=== PATIENT | female | born 2000 | race Caucasian/White ===

== ENCOUNTER 2022-06-17 21:47 | Emergency (ER) | payer MEDICAID, SELFPAY ==
[2022-06-17 21:48] VITALS: BP 123/81; PULSE 118; RESP 16; TEMP 36.8; O2SAT 100; BMI 31.1
[2022-06-17 23:30] VITALS: BP 113/74; PULSE 89; O2SAT 99
--- NOTE | 2022-06-18 00:08 | HMH.EDSKAF ---
Discharge Plan Disposition Patient Disposition: Home, Self-Care Condition: Good Prescriptions Prescriptions: New cephalexin 500 mg capsule 500 mg PO BID 10 Days Qty: 20 0RF cephalexin 500 mg capsule 500 mg PO BID 7 Days Qty: 14 0RF Referrals Follow up/Referrals: Rubens Diane APRN [Primary Care Provider] - See instructions Activity Restrictions/Add. Instructions Additional Instructions/Restrictions: Follow up with your primary care physician in 2-3 days for further management. Keep wound clean and dry. Please take antibiotic as prescribed. Please use tylenol and ibuprofen for pain control. Clinical Impressions Clinical Impression: Abscess and cellulitis of gluteal region Instructions Patient Instructions: DI for Skin Abscess Discharge ED Provider: Julianna Bowling Skin/Abscess/FB HPI General Chief complaint: Skin/Abscess/Foreign Body Stated complaint: 8 weeks , lower back pain Time Seen by Provider: 06/17/22 21:47 Mode of Arrival: Ambulatory Source of Information: Patient Limitations: No Limitations Description of Symptoms (Recalled from ER Triage Doc. by RN): pt reports like a boil on her tailbone for the past 2 days. She reports discomfort when sitting or laying on her back. She says she is 8 weeks . History of Present Illness HPI narrative: Miss Deras is a 22 yo female currently 8 weeks presenting to the ED for a quarter size boil on her (R) gluteal muscle. She reports symptom onset a few days ago. Patient reports severe pain, worse when she sits on her bottom. Patient denies any fevers, chills or other systemic infection like symptoms. She denies any recent trauma to the abdomen. No similar symptoms. No insect bite known. complaint: abscess/boil Onset (ago): day(s) Tetanus up to date: yes Location: buttocks Severity: moderate Quality: sharp Consistency: constant Relieving factors: other (Not sitting on it) Exacerbating factors: none Associated symptoms: denies other symptoms Treatments prior to arrival: none Related Data Previous Rx's Medication Instructions Recorded cephalexin 500 mg capsule 500 mg PO BID 10 days #20 caps 06/18/22 cephalexin 500 mg capsule 500 mg PO BID 7 days #14 caps 06/18/22 Allergies Allergy/AdvReac Type Severity Reaction Status Date / Time No Known Allergies Allergy Verified 06/18/22 00:09 [facility] Social History Smoking Status: Never smoker alcohol intake: former current occupational status: employed Travel in the last 8 weeks: None ROS Obtained: Yes All systems reviewed & no additional complaints except as documented Constitutional Constitutional: Reports system reviewed and no additional complaints, except as documented Eyes Eyes: Reports system reviewed and no additional complaints, except as documented ENT Ears, Nose, Mouth, and Throat: Reports system reviewed and no additional complaints, except as documented Cardiovascular Cardiovascular: Reports system reviewed and no additional complaints, except as documented Respiratory Respiratory: Reports system reviewed and no additional complaints, except as documented Gastrointestinal Gastrointestingal: Reports system reviewed and no additional complaints, except as documented and other Comments: Boil along the (R) gluteal region. No fluctuance noted, hard and indurated. No crepitus.Mild surrounding eyrthema. Musculoskeletal Musculoskeletal: Reports system reviewed and no additional complaints, except as documented Neurologic Neurologic: Reports system reviewed and no additional complaints, except as documented Allergic/Immunologic Allergic/Immunologic: Reports system reviewed and no additional complaints, except as documented Physical Exam General General appearance: alert and in no apparent distress Head Head exam: atraumatic and normal inspection Eye Eye exam: Present normal appearance and EOMI E
[2022-06-18 00:32] VITALS: BP 113/74; PULSE 93; RESP 16; TEMP 36.6; O2SAT 98
== END 2022-06-18 00:34 | disposition home or self-care (01) ==
PROVIDERS: Emergency Provider Student in an Organized Health Care Education/Training Program; PCP Nurse Practitioner Family
DX: L02.31 Cutaneous abscess of buttock (principal); Z33.1 Pregnant state, incidental
CPT/HCPCS: 10060; 99282

== ENCOUNTER → 2022-07-21 08:26 | Outpatient (CLI) | payer MEDICAID, SELFPAY | PROVIDERS: Visit Provider Obstetrics & Gynecology | DX: Z34.90 Encounter for supervision of normal pregnancy, unspecified, unspecified trimester (principal) | CPT/HCPCS: 87086 ==

== ENCOUNTER 2022-07-25 20:50 | Emergency (ER) | payer MEDICAID, SELFPAY ==
[2022-07-25 21:04] VITALS: BP 131/88; PULSE 116; RESP 16; TEMP 36.8; O2SAT 97; BMI 30.9
--- NOTE | 2022-07-25 21:45 | PC.NURSE ---
Dr. Heaton paged
--- NOTE | 2022-07-25 21:47 | HMH.EDSKAF ---
Discharge Plan Disposition Patient Disposition: Home, Self-Care Prescriptions Prescriptions: New clindamycin HCl 300 mg capsule 300 mg PO TID Qty: 30 0RF No Action Flintstones Complete Tablet,Chewable 1 tab PO BID cephalexin 500 mg capsule 500 mg PO QID Referrals Follow up/Referrals: Rubens Diane APRN [Primary Care Provider] - See instructions Clinical Impressions Clinical Impression: Abscess and cellulitis of gluteal region, Instructions Patient Instructions: DI for Skin Abscess Discharge ED Provider: Kendell Shearer Skin/Abscess/FB HPI General Chief complaint: Skin/Abscess/Foreign Body Stated complaint: 10WKs Preg Abscess on tail Time Seen by Provider: 07/25/22 21:47 Mode of Arrival: Ambulatory Source of Information: Patient, Significant Other and Medical Record Limitations: No Limitations Description of Symptoms (Recalled from ER Triage Doc. by RN): Pt c/o pain on left glut from a known pilonidal cyst she had evaluated today by her PCP. She was given PO keflex and instructed to see saturday. Pt says she came in because she just cant deal with the pain anymore. History of Present Illness HPI narrative: has infection to lt gluteal area in 10 weeks complaint: abscess/boil Onset (ago): day(s) Tetanus up to date: unsure Location: buttocks Severity: moderate Associated symptoms: denies other symptoms Treatments prior to arrival: antibiotic Related Data Home Medications Medication Instructions Recorded Confirmed pediatric multivitamin no.76 1 tab PO BID Supplement 07/20/22 07/25/22 (Flintstones Complete chewable tablet) cephalexin 500 mg capsule 500 mg PO QID Cyst 07/25/22 07/25/22 Previous Rx's Medication Instructions Recorded clindamycin HCl 300 mg capsule 300 mg PO TID #30 caps 07/25/22 Allergies Allergy/AdvReac Type Severity Reaction Status Date / Time No Known Allergies Allergy Verified 07/25/22 13:43 PFSH PFSH Family History Other Cancer Diabetes Heart attack Thyroid disorder Social History Smoking Status: Never smoker alcohol intake: former current occupational status: employed Travel in the last 8 weeks: None ROS Obtained: Yes All systems reviewed & no additional complaints except as documented Integumentary/Breasts Skin/Breast: Reports as per HPI and Reports furuncle Physical Exam General General appearance: alert Head Head exam: normocephalic Eye Eye exam: Present PERRL and EOMI ENT ENT exam: Present mucous membranes moist Neck Neck exam: Absent trachea midline Respiratory Respiratory exam: Present normal lung sounds bilaterally Cardiovascular Cardiovascular exam: Present regular rate Extremities Exam Extremities exam: Present full ROM Neurological Exam Neurological exam: Present alert, oriented X3 and CN II-XII intact Psychiatric Psychiatric exam: Present normal affect Skin Skin exam: Present other (1x2 lt gluteal abscess) Medical Decision Making Medical Records Medical records reviewed: Yes I reviewed the patient's medical records. Aneudy Inquiry Pt receiving controlled substance: No Vital Signs: 07/25/22 21:04 Temperature 98.2 F Temperature Source Oral Pulse Rate [Right Radial] 116 H Respiratory Rate 16 Blood Pressure [Right Arm] 131/88 Blood Pressure Mean [Right Arm] 102 02 Sat by Pulse Oximetry 97 Oxygen Delivery Method Room Air Orders (Tests/Meds): ED MEDICATIONS Discontinued Medications Generic Name Dose Route Start Last Admin Trade Name Freq PRN Reason Stop Dose Admin Acetaminophen/Codeine Phosphate 1 packet 07/25/22 21:52 07/25/22 22:03 Acetaminophen 300mg W/Codeine 30mg Take Home Pack (6) PO 07/25/22 21:53 1 packet ONCE ONE Administration Clindamycin HCl 300 mg 07/25/22 21:55 07/25/22 22:03 Clindamycin 150m
--- NOTE | 2022-07-25 21:49 | PC.NURSE ---
Dr. Shearer speaking with Dr. Heaton
--- NOTE | 2022-07-25 22:32 | PC.NURSE ---
@ 2154 Dr. Shearer s/w pt regarding options after he s/w Dr. Heaton. Pt elected to have I&D in ER and d/c on ABX. @2156 Procedure consent reviewed with pt with this RN and Dr. Shearer. @2157 Pt signed consent and was prepped in a prone position. @2199 Dr. Shearer back to bedside for procedure with this RN and Jose Olmedo EMT assisting. @2211 MD completed procedure. Pt tolerated procedure well. Jose Olmedo holding pressure to site per MD. @2215 site continued to trickle blood, will hold pressure longer. @2219 site no longer bleeding. Per MD, attempting to pack site with gauze strip in a wet to dry dressing. Unable to pack well, therefore applied telfa with tegaderm. Gave pt & SO dressing change instructions and dressing material.
[2022-07-25 23:04] VITALS: BP 116/72; PULSE 85; RESP 18; TEMP 37; O2SAT 98
== END 2022-07-25 23:07 | disposition home or self-care (01) ==
PROVIDERS: Emergency Provider Emergency Medicine; PCP Nurse Practitioner Family
DX: O34.81 Maternal care for other abnormalities of pelvic organs, first trimester (principal); O99.711 Diseases of the skin and subcutaneous tissue complicating pregnancy, first trimester; L05.01 Pilonidal cyst with abscess; O99.830 Other infection carrier state complicating pregnancy; L03.317 Cellulitis of buttock; Z3A.10 10 weeks gestation of pregnancy; Z79.899 Other long term (current) drug therapy; Z87.891 Personal history of nicotine dependence; Z82.49 Family history of ischemic heart disease and other diseases of the circulatory system; Z83.3 Family history of diabetes mellitus; Z80.9 Family history of malignant neoplasm, unspecified; Z83.49 Family history of other endocrine, nutritional and metabolic diseases
CPT/HCPCS: 10080; 87070; 87077; 87186; 87205; 99283

== ENCOUNTER → 2022-08-24 11:50 | Outpatient (CLI) | payer MEDICAID, SELFPAY ==
[2022-08-24 13:08] LABS: Basophils # 0.1 K/mm3 (0-0.2); Basophils % 0.6 % (0.1-2.0); Eosinophils # 0.2 K/mm3 (0.0-0.4); Eosinophils % 2.5 % (0.1-12.0); Hematocrit 37.8 % (37.0-47.0); Hemoglobin 12.2 g/dL (12.2-16.2); Lymphocytes # 1.3 K/mm3 (0.7-4.5); Lymphocytes % 14.6 % (10-50); Mean Corpuscular HGB Conc 32.3 g/dL (31.8-35.4); Mean Corpuscular Volume 89.6 fl (81-99); Mean Platelet Volume 8.5 fl (7.4-10.4); Monocytes # 0.3 K/mm3 (0.1-1.0); Monocytes % 3.5 % (1.7-9.3); Neutrophils # 6.8 K/mm3 (1.8-7.8); Neutrophils % 78.7 % (37.0-80.0); Platelet Count 274 K/mm3 (142-424); Red Blood Count 4.22 M/mm3 (4.20-5.40); White Blood Count 8.6 K/mm3 (4.8-10.8)
[2022-08-25 08:32] LABS: Rubella Antibodies, IgG <0.90 index (Immune >0.99)
[2022-08-25 09:19] LABS: Rapid Plasma Reagin Ab Titer Non Reactive (NonRea<1:1)
[2022-09-15 23:37] LABS: HIV Screen 4th Generation wRfx Non Reactive; Hepatitis B Surface Antigen Negative
[2022-09-15 23:38] LABS: Hepatitis C Antibody <0.1
== END ==
PROVIDERS: PCP Nurse Practitioner Family; Visit Provider Obstetrics & Gynecology
DX: Z34.90 Encounter for supervision of normal pregnancy, unspecified, unspecified trimester (principal)
CPT/HCPCS: 36415; 85025; 86592; 86703; 86762; 86850; 87340; 87380; G0432

== ENCOUNTER → 2022-10-19 12:36 | Outpatient (CLI) | payer MEDICAID, SELFPAY ==
--- NOTE | 2022-10-19 12:36 | US_ITS ---
FINAL REPORT CLINICAL HISTORY: OB complete, anatomy scan FINDINGS: There is a single live intrauterine gestation. Presentation is breech. The cervix is closed and measures 3.66 cm. Placenta is anterior. Cardiac activity is confirmed at 146 bpm. Three-vessel cord with satisfactory umbilical cord insertion. Four-chamber heart is noted. AMNIOTIC FLUID: Appropriate amount. MEASUREMENTS: ULTRASOUND AGE: 23 weeks six days. GESTATION AGE: 22 weeks five days. ESTIMATED WEIGHT: 625 g GROWTH PERCENTILE: 89% BPD: 6.0 cm consistent with 24 weeks four days. OFD: 7.5 cm consistent with 23 weeks six days. HC: 21.3 cm consistent with 23 weeks three days. AC: 19.6 cm consistent with 24 weeks two days. FL: 4.0 cm consistent with 23 weeks one days. CEREBELLUM: 2.3 cm consistent with 23 weeks 0 days. HUMERUS: 3.9 cm consistent with 23 weeks six days. HC/AC: 1.09 CI: 80% FL/BPD: 67% FL/AC: 21% IMPRESSION: Single living IUP with an ultrasound age of 23 weeks six days. Reviewed, Interpreted and Dictated by Kevin Mccarty MD Transcribed by Keke Lindsey Authenticated and [facility]
== END ==
PROVIDERS: PCP Nurse Practitioner Family; Visit Provider Obstetrics & Gynecology
DX: Z34.90 Encounter for supervision of normal pregnancy, unspecified, unspecified trimester (principal); Z3A.17 17 weeks gestation of pregnancy
CPT/HCPCS: 76811

== ENCOUNTER → 2022-11-20 07:50 | Outpatient (CLI) | payer MEDICAID, SELFPAY ==
[2022-11-20 08:18] LABS: Basophils % 0.4 % (0.1-2.0); Eosinophils # 0.3 K/mm3 (0.0-0.4); Eosinophils % 3.6 % (0.1-12.0); Hematocrit 34.4 % (37.0-47.0); Hemoglobin 11.4 g/dL (12.2-16.2); Lymphocytes # 1.1 K/mm3 (0.7-4.5); Lymphocytes % 13.7 % (10-50); Mean Corpuscular HGB Conc 33.1 g/dL (31.8-35.4); Mean Corpuscular Hemoglobin 28.2 pg (27.0-31.2); Mean Corpuscular Volume 85.1 fl (81-99); Mean Platelet Volume 8.3 fl (7.4-10.4); Monocytes # 0.6 K/mm3 (0.1-1.0); Monocytes % 6.8 % (1.7-9.3); Neutrophils # 6.3 K/mm3 (1.8-7.8); Neutrophils % 75.5 % (37.0-80.0); Platelet Count 249 K/mm3 (142-424); Red Blood Count 4.05 M/mm3 (4.20-5.40); Red Cell Distribution Width 13.9 % (11.5-17.5); White Blood Count 8.3 K/mm3 (4.8-10.8)
[2022-11-20 08:24] LABS: Glucose,Fasting 105 mg/dl (74-100)
[2022-11-20 10:18] LABS: Glucose 1 Hour 146 mg/dL (74-100)
== END ==
PROVIDERS: PCP Nurse Practitioner Family; Visit Provider Obstetrics & Gynecology
DX: Z34.90 Encounter for supervision of normal pregnancy, unspecified, unspecified trimester (principal)
CPT/HCPCS: 36415; 82951; 85025

== ENCOUNTER → 2022-11-23 07:35 | Outpatient (CLI) | payer MEDICAID, SELFPAY ==
[2022-11-23 08:31] LABS: Glucose,Fasting 100 mg/dl (74-100)
[2022-11-23 10:46] LABS: Glucose 2 Hour 138 mg/dL (74-100)
[2022-11-23 11:03] LABS: Glucose 1 Hour 149 mg/dL (74-100)
[2022-11-23 12:26] LABS: Glucose 3 Hour 131 mg/dL (74-100)
== END ==
PROVIDERS: PCP Nurse Practitioner Family; Visit Provider Obstetrics & Gynecology
DX: O99.810 Abnormal glucose complicating pregnancy (principal)
CPT/HCPCS: 36415; 82951

== ENCOUNTER 2022-12-30 21:30 | Outpatient (CLI) | payer MEDICAID, SELFPAY ==
[2022-12-30 21:35] VITALS: BMI 33.6
[2022-12-30 21:44] LABS: Microscopic, Urine URINE MICROSCOPIC (MICROSCOPIC)
[2022-12-30 21:51] LABS: Appearance,Urine SL CLOUDY (Clear); Bilirubin,Urine Negative (Negative); Blood, Urine Negative (Negative); Color,Urine YELLOW (Yellow); Glucose,Urine (UA) Negative (Negative); Ketones,Urine TRACE (Negative); Leukocyte Esterase,Urine Negative (Negative); Nitrate,Urine Negative (Negative); PH,Urine 6.5 (5.0-8.5); Protein,Urine Negative (Negative); Specific Gravity, Urine 1.015 (1.005-1.030); Urobilinogen,Urine 0.2 EU/dl (0.2)
[2022-12-30 22:04] LABS: Barbiturates Screen,Urine Negative ng/ml (<200); Benzodiazepines Screen,Urine Negative ng/ml (<200)
[2022-12-30 22:05] LABS: Amphetamine/Metha Screen,Urine Negative ng/ml (<1000)
[2022-12-30 22:06] LABS: Cannabinoid Screen,Urine Negative ng/ml (<50); Cocaine Screen,Urine Negative ng/ml (<300)
[2022-12-30 22:07] LABS: Methadone Screen,Urine Negative ng/ml (<300)
[2022-12-30 22:08] LABS: Opiate Screen,Urine Negative ng/ml (<300); Phencyclidine Screen,Urine Negative ng/ml (<25)
[2022-12-30 22:11] LABS: Bacteria,Urine Trace /lpf
== END 2022-12-30 23:53 | disposition home or self-care (01) ==
LOC: OBOUT 21:33 → OB 21:33
PROVIDERS: PCP Nurse Practitioner Family; Visit Provider Obstetrics & Gynecology
DX: O47.00 False labor before 37 completed weeks of gestation, unspecified trimester (principal); Z3A.33 33 weeks gestation of pregnancy; O36.8120 Decreased fetal movements, second trimester, not applicable or unspecified
CPT/HCPCS: 59025; 80305; 81001; 96360

== ENCOUNTER 2023-01-08 22:07 | Outpatient (CLI) | payer MEDICAID, SELFPAY ==
[2023-01-08 22:18] VITALS: BP 127/69; PULSE 75; RESP 18; TEMP 36.9; O2SAT 97; BMI 34.3
[2023-01-08 22:29] LABS: Microscopic, Urine URINE MICROSCOPIC (MICROSCOPIC)
[2023-01-08 22:30] LABS: Appearance,Urine CLEAR (Clear); Bilirubin,Urine Negative (Negative); Blood, Urine Negative (Negative); Color,Urine YELLOW (Yellow); Glucose,Urine (UA) Negative (Negative); Ketones,Urine Negative (Negative); Leukocyte Esterase,Urine 1+ (Negative); Nitrate,Urine Negative (Negative); PH,Urine 7.5 (5.0-8.5); Protein,Urine Negative (Negative); Urobilinogen,Urine 0.2 EU/dl (0.2)
[2023-01-08 22:34] VITALS: BP 127/69; PULSE 75; RESP 18; TEMP 36.9; O2SAT 97; BMI 34.3
[2023-01-08 22:43] LABS: Bacteria,Urine Trace /lpf
[2023-01-08 22:51] LABS: Opiate Screen,Urine Negative ng/ml (<300)
[2023-01-08 22:52] LABS: Phencyclidine Screen,Urine Negative ng/ml (<25)
[2023-01-08 23:46] LABS: Amphetamine/Metha Screen,Urine Negative ng/ml (<1000); Barbiturates Screen,Urine Negative ng/ml (<200); Benzodiazepines Screen,Urine Negative ng/ml (<200); Cannabinoid Screen,Urine Negative ng/ml (<50); Cocaine Screen,Urine Negative ng/ml (<300); Methadone Screen,Urine Negative ng/ml (<300)
[2023-01-09 01:25] VITALS: BP 118/68; PULSE 84; RESP 18; TEMP 37.1
== END 2023-01-09 01:25 | disposition home or self-care (01) ==
LOC: OBOUT 22:10 → OB 22:10
PROVIDERS: PCP Nurse Practitioner Family; Visit Provider Obstetrics & Gynecology
DX: O26.893 Other specified pregnancy related conditions, third trimester (principal); Z3A.34 34 weeks gestation of pregnancy; M54.50 Low back pain, unspecified; R10.9 Unspecified abdominal pain
CPT/HCPCS: 59025; 80305; 81001; 87086; 96365; 96366; 96372; G0463

== ENCOUNTER 2023-01-09 14:44 | Outpatient (CLI) | payer MEDICAID, SELFPAY ==
[2023-01-09 15:01] VITALS: RESP 18; BMI 34.3
--- NOTE | 2023-01-09 15:38 | US_ITS ---
FINAL REPORT CLINICAL HISTORY: CONTRACTIONS cervix length FINDINGS: Transvaginal sonographic images of the cervix were obtained. Limited sonographic images were obtained of the cervix. The cervix measures 4.2 cm in length which is normal. There is no funneling of the internal os. There may be a tiny amount of fluid in the cervix which is nonspecific. The fetus is vertex. IMPRESSION: Normal cervical length with no funneling. Reviewed, Interpreted and Dictated by Nena Jimenez MD Transcribed by Brandy Jaeger Authenticated and . [facility]
[2023-01-09 16:45] LABS: Fetal Fibronectin (Rapid) Negative (Negative)
== END 2023-01-09 17:00 | disposition home or self-care (01) ==
LOC: OBOUT 14:46 → OB 14:47
PROVIDERS: PCP Nurse Practitioner Family; Visit Provider Obstetrics & Gynecology
DX: O26.893 Other specified pregnancy related conditions, third trimester (principal); Z3A.34 34 weeks gestation of pregnancy
CPT/HCPCS: 59025; 76817; 82731; G0463

== ENCOUNTER → 2023-01-11 14:45 | Outpatient (CLI) | payer MEDICAID, SELFPAY ==
--- NOTE | 2023-01-11 14:45 | US_ITS ---
FINAL REPORT CLINICAL HISTORY: lga growth and s/d ratios done as well FINDINGS: There is a single live intrauterine gestation. Presentation is cephalic. The cervix is closed and measures 4.1 cm. Placenta is anterior. movement is noted. SD ratios 2.55. Amniotic fluid index is 15.4 which is normal. Heart rate is identified at 128 beats per minute. MEASUREMENTS: ULTRASOUND AGE: 35 weeks 3 days GESTATION AGE: 34 weeks 5 days ESTIMATED WEIGHT: 2704 g GROWTH PERCENTILE: 70% BPD: 8.86 cm corresponding to 35 weeks 6 days. OFD: 11 cm corresponding to 35 weeks 4 days. HC: 31.38 cm corresponding to 35 weeks 2 days. AC: 32.28 cm corresponding to 36 weeks 2 days. FL: 6.65 cm corresponding to 34 weeks 2 days. HC/AC: 0.97 CI: 81% FL/BPD: 75% FL/AC: 21% Biophysical profile score: Breathin Movement: 2 Tone: 2 Fluid volume: 2 IMPRESSION: Single living IUP with an ultrasound age of 35 weeks 3 days Biophysical profile score 8 of 8. Reviewed, Interpreted and Dictated by Nena Jimenez MD Transcribed by Sabina Dave Authenticated and . [facility]
== END ==
PROVIDERS: PCP Nurse Practitioner Family; Visit Provider Obstetrics & Gynecology
DX: O36.60X0 Maternal care for excessive fetal growth, unspecified trimester, not applicable or unspecified (principal)
CPT/HCPCS: 76816; 76819; 76820

== ENCOUNTER → 2023-01-17 11:00 | Outpatient (CLI) | payer MEDICAID, SELFPAY | PROVIDERS: Visit Provider Obstetrics & Gynecology | DX: Z34.90 Encounter for supervision of normal pregnancy, unspecified, unspecified trimester (principal); Z3A.34 34 weeks gestation of pregnancy | CPT/HCPCS: 86403 ==

== ENCOUNTER 2023-01-18 00:19 | Outpatient (CLI) | payer MEDICAID, SELFPAY ==
[2023-01-18 00:47] VITALS: BMI 35.0
[2023-01-18 00:48] VITALS: BP 131/83; PULSE 102; RESP 19; TEMP 36.7; O2SAT 97; BMI 35.0
[2023-01-18 00:55] LABS: Microscopic, Urine URINE MICROSCOPIC (MICROSCOPIC)
[2023-01-18 01:02] LABS: Appearance,Urine CLEAR (Clear); Bilirubin,Urine Negative (Negative); Blood, Urine Negative (Negative); Color,Urine YELLOW (Yellow); Glucose,Urine (UA) Negative (Negative); Ketones,Urine Negative (Negative); Leukocyte Esterase,Urine Negative (Negative); Nitrate,Urine Negative (Negative); Protein,Urine Negative (Negative); Specific Gravity, Urine <= 1.005 (1.005-1.030); Urobilinogen,Urine 0.2 EU/dl (0.2)
[2023-01-18 01:05] LABS: Fetal Membrane Rupture (Rapid) Negative (Negative)
[2023-01-18 01:35] LABS: WBC,Urine Occasional #/hpf (0-3)
== END 2023-01-18 03:53 | disposition home or self-care (01) ==
LOC: OBOUT 00:20 → OB 00:21
PROVIDERS: PCP Nurse Practitioner Family; Visit Provider Obstetrics & Gynecology
DX: O47.03 False labor before 37 completed weeks of gestation, third trimester (principal); Z3A.35 35 weeks gestation of pregnancy; R10.2 Pelvic and perineal pain
CPT/HCPCS: 59025; 81001; 84112; 96365; G0463

== ENCOUNTER 2023-01-19 22:14 | Outpatient (CLI) | payer MEDICAID, SELFPAY ==
[2023-01-19 22:25] VITALS: BMI 35.0
[2023-01-19 22:38] VITALS: BMI 77.3
[2023-01-19 22:46] LABS: Microscopic, Urine URINE MICROSCOPIC (MICROSCOPIC)
[2023-01-19 22:56] LABS: Appearance,Urine CLEAR (Clear); Bilirubin,Urine Negative (Negative); Blood, Urine Negative (Negative); Color,Urine YELLOW (Yellow); Glucose,Urine (UA) Negative (Negative); Ketones,Urine Negative (Negative); Leukocyte Esterase,Urine Negative (Negative); Nitrate,Urine Negative (Negative); Protein,Urine Negative (Negative); Urobilinogen,Urine 0.2 EU/dl (0.2)
[2023-01-19 23:08] LABS: Barbiturates Screen,Urine Negative ng/ml (<200)
[2023-01-19 23:09] LABS: Amphetamine/Metha Screen,Urine Negative ng/ml (<1000); Benzodiazepines Screen,Urine Negative ng/ml (<200)
[2023-01-19 23:10] LABS: Cannabinoid Screen,Urine Negative ng/ml (<50)
[2023-01-19 23:11] LABS: Cocaine Screen,Urine Negative ng/ml (<300); Methadone Screen,Urine Negative ng/ml (<300)
[2023-01-19 23:12] LABS: Opiate Screen,Urine Negative ng/ml (<300)
[2023-01-19 23:13] LABS: Phencyclidine Screen,Urine Negative ng/ml (<25)
[2023-01-19 23:21] LABS: Squamous Epithelial Cell,Urine Occasional #/hpf (0-5); WBC,Urine Occasional #/hpf (0-3)
== END 2023-01-19 23:35 | disposition home or self-care (01) ==
LOC: OBOUT 22:16 → OB 22:17
PROVIDERS: PCP Nurse Practitioner Family; Visit Provider Obstetrics & Gynecology
DX: O47.03 False labor before 37 completed weeks of gestation, third trimester (principal); Z3A.36 36 weeks gestation of pregnancy
CPT/HCPCS: 59025; 80305; 81001

== ENCOUNTER 2023-01-23 15:05 | Inpatient (IN) | payer MEDICAID, SELFPAY ==
[2023-01-23 14:06] VITALS: BP 149/91; PULSE 91; RESP 18; TEMP 37.3; O2SAT 98; BMI 35.7
[2023-01-23 14:20] VITALS: BP 146/96
[2023-01-23 15:31] LABS: Basophils % 0.4 % (0.1-2.0); Eosinophils % 0.5 % (0.1-12.0); Hematocrit 33.6 % (37.0-47.0); Hemoglobin 10.9 g/dL (12.2-16.2); Lymphocytes # 1.3 K/mm3 (0.7-4.5); Lymphocytes % 14.6 % (10-50); Mean Corpuscular HGB Conc 32.5 g/dL (31.8-35.4); Mean Platelet Volume 9.5 fl (7.4-10.4); Monocytes # 0.5 K/mm3 (0.1-1.0); Monocytes % 5.7 % (1.7-9.3); Neutrophils # 6.9 K/mm3 (1.8-7.8); Neutrophils % 78.8 % (37.0-80.0); Platelet Count 243 K/mm3 (142-424); Red Cell Distribution Width 14.3 % (11.5-17.5); White Blood Count 8.8 K/mm3 (4.8-10.8)
[2023-01-23 15:36] LABS: Fibrinogen 450 mg/dL (229.9-363.5); Prothrombin Time 9.8 seconds (10.1-12.5)
--- NOTE | 2023-01-23 15:39 | EXP.HP ---
History of Present Illness *Admission Date: 01/23/23 *Reason for visit:: Hypertension *History of present illness: 22 yo admitted at 36 3/ directly from office for elevated blood pressure BP in office 150/98 with 3+ pedal edema Trace protein in urine She reported new onset headaches and visual disturbances BP in OB triage 140-150/80-90 Reflexes 2+ She also reported decreased movement but NST has been reactive She was advised that delivery was indicated in the context of elevated blood pressures with PIH symptoms, in spite of prematurity, and she and baby's father are in agreement with this plan She has been counseled that the could require transfer to a tertiary facility due to prematurity, but that immediate delivery was appropriate in the context of maternal diagnosis of preeclampsia after 36 weeks care at [facility]-- Dr. Landrum complicated by contractions, history of HSV and Rubella non-immune maternal status She is currently taking Valtex for prophylaxis She had abnormal 1hr GTT but normal 3hr GTT PFSH PFSH Disclaimer: The information contained in this section may have been updated after the patient was seen, as this information can be updated by other users. Medical History Elevated blood pressure affecting in third trimester, antepartum Pilonidal abscess Rubella non-immune status, antepartum Family History Other Cancer Diabetes Heart attack Thyroid disorder Social History Smoking Status: Never smoker alcohol intake: former current occupational status: unemployed Travel in the last 8 weeks: None Review of Systems Review of Systems Review of systems:: pertinent systems reviewed and negative unless documented below Constitutional Constitutional: Denies chills, Denies fever(s) and Reports headache(s) Eyes Eyes: Reports spots in vision ENT Ears, Nose, Mouth, and Throat: Reports headache(s) *Cardiovascular Cardiovascular: Reports pedal edema *Gastrointestinal Gastrointestinal: Reports nausea and Denies vomiting *Genitourinary Genitourinary: Denies abnormal vaginal bleeding *Neurologic Neurologic: Reports headache(s) and Reports other visual disturbances Meds Home Medications and Allergies Home Medications Medication Instructions Recorded Confirmed Type pediatric multivitamin no.76 1 tab PO BID Supplement 07/20/22 01/23/23 History (Flintstones Complete chewable tablet) valacyclovir 500 mg tablet 500 mg PO BID #60 tabs 01/17/23 01/23/23 Rx (Valtrex) New Prescriptions to Start Prescriptions: Allergies Allergy/AdvReac Type Severity Reaction Status Date / Time No Known Allergies Allergy Verified 01/23/23 13:13 Exam Data for Last 24 hours Vital signs and Labs for Last 24 Hours: Temp Pulse Resp BP Pulse Ox 99.1 F 91 H 18 146/96 H 98 01/23/23 14:06 01/23/23 14:06 01/23/23 14:06 01/23/23 14:20 01/23/23 14:06 Laboratory Results - last 24 hr 01/23/23 14:35: WBC 8.8, RBC 4.20, Hgb 10.9 L, Hct 33.6 L, MCV 80.0 L, MCH 26.0 L, MCHC 32.5, RDW 14.3, Plt Count 243, MPV 9.5, Neut % (Auto) 78.8, Lymph % (Auto) 14.6, [place] % (Auto) 5.7, Eos % (Auto) 0.5, Baso % (Auto) 0.4, Neut # (Auto) 6.9, Lymph # (Auto) 1.3, [place] # (Auto) 0.5, Eos # (Auto) 0.0, Baso # (Auto) 0.0 01/23/23 14:35: PT 9.8 L, INR 0.90, APTT 23.0, Fibrinogen 450 H I & O for Last 24 hours: Intake & Output 01/21/23 01/22/23 01/23/23 01/24/23 11:59 11:59 11:59 11:59 Weight 202 lb Constitutional Constitutional: no acute distress *Routine HEENT Exam Head: Present normocephalic Eye: Absent conjunctival icterus or scleral injection ENT: Present mucous membranes moist *Routine Neck Exam Neck: Present supple *Routine Respiratory Exam Respiratory: Present CTA bilaterally; Absent resp
[2023-01-23 16:10] LABS: Coronavirus 19, PCR Not Detected (NotDetected); Influenza A, PCR Not Detected (NotDetected); Influenza B, PCR Not Detected (NotDetected)
[2023-01-23 16:38] LABS: Blood Urea Nitrogen 7 mg/dl (7-17); Calcium 9.4 mg/dl (8.4-10.2); Carbon Dioxide 20 mmol/L (22.0-30.0); Chloride 107 mmol/L (98-107); Creatinine Clearance Estimated 316 mL/min (50-200); Estimated Glomerular Filt Rate 198 ml/min (>60); GFR (African American) 239 ML/MIN (>60); Glucose 76 mg/dl (74-100); Sodium 131 mmol/L (136-145)
[2023-01-23 16:49] LABS: D-Dimer 1.01 ug/mL (0.0-0.5)
[2023-01-23 16:54] LABS: Alanine Aminotransferase 18 U/L (12-78); Aspartate Amino Transferase 36 U/L (14-36); Uric Acid 4.8 mg/dl (2.5-6.2)
[2023-01-23 20:00] VITALS: BP 136/91; PULSE 78; RESP 17; TEMP 36.8; O2SAT 100
[2023-01-24] VITALS (10 sets, daily range): BP systolic 126–149; BP diastolic 78–100; PULSE 76–95; RESP 12–18; TEMP 36.6–43; O2SAT 96–100
--- NOTE | 2023-01-24 08:15 | HMH.PHAINT1 ---
Pharmacy Intervention Comments: MEDICATION RECONCILIATION COMPLETED ON PATIENT USING EXTERNAL FILL HISTORY FROM PHARMACY. -ELBERT JEFF, LISAD
--- NOTE | 2023-01-24 09:58 | P.PN_ITS ---
[facility] Disclaimer: The information contained in this section may have been updated after the patient was seen, as this information can be updated by other users. Medical History Elevated blood pressure affecting in third trimester, antepartum Pilonidal abscess Rubella non-immune status, antepartum Family History Other Cancer Diabetes Heart attack Thyroid disorder Social History (Updated 01/23/23 @ 20:19 by Marlyn Banegas RN) Smoking Status: Never smoker alcohol intake: former substance use type: denies use current occupational status: unemployed Travel in the last 8 weeks: None [facility] Anesthesia Checklist Patient Identification Patient Identification: Arm Band Structural Data Admitted From: Inpatient Planned Operative Procedure/s: Labor Epidural Consent for Planned Operative Procedure(s) Verified: Yes Verified Documents: Surgical Consent and History and Physical NPO Status Verified Time NPO: 00:00 Additional verifications Anesthesia Reactions: No Airway Assessment C-Spine Mobility Assessed: Yes TMJ Mobility Assessed: Yes Dentition: Good Dentition Neurological Assessment Level of Consciousness: Awake and Alert Anesthesia Plan Anesthesia Risk discussed: Yes Anesthesia Plan: Verified ASA Class: II Anesthesia Type: Epidural
--- NOTE | 2023-01-24 12:54 | CARE MANAGER ---
Patient states on PC4 questions that she gets less than 150 minutes of exercise. Patient has recently delivered and will be increasing her activity when she gets home. Resource list for exercise options will be given is discharge paperwork.
[2023-01-24 14:47] LABS: Microscopic, Urine URINE MICROSCOPIC (MICROSCOPIC)
[2023-01-24 14:59] LABS: Appearance,Urine CLEAR (Clear); Bilirubin,Urine Negative (Negative); Blood, Urine TRACE-L (Negative); Color,Urine YELLOW (Yellow); Glucose,Urine (UA) Negative (Negative); Ketones,Urine Negative (Negative); Leukocyte Esterase,Urine Negative (Negative); Nitrate,Urine Negative (Negative); PH,Urine 6.5 (5.0-8.5); Protein,Urine Negative (Negative); Urobilinogen,Urine 0.2 EU/dl (0.2)
[2023-01-24 15:03] LABS: Bacteria,Urine Trace /lpf
[2023-01-24 15:06] LABS: Amphetamine/Metha Screen,Urine Negative ng/ml (<1000)
[2023-01-24 15:07] LABS: Barbiturates Screen,Urine Negative ng/ml (<200); Benzodiazepines Screen,Urine Negative ng/ml (<200)
[2023-01-24 15:08] LABS: Cannabinoid Screen,Urine Negative ng/ml (<50)
[2023-01-24 15:09] LABS: Cocaine Screen,Urine Negative ng/ml (<300); Methadone Screen,Urine Negative ng/ml (<300)
[2023-01-24 15:10] LABS: Phencyclidine Screen,Urine Negative ng/ml (<25)
[2023-01-24 15:11] LABS: Opiate Screen,Urine Negative ng/ml (<300)
--- NOTE | 2023-01-24 17:48 | SUR.OPER ---
[id number]. UNABLE TO OBTAIN PH FROM CORD, MADE AWARE. OB NURSE MADE AWARE
--- NOTE | 2023-01-24 18:23 | P.PNANES_ITS ---
[facility] Anesthesia Record Part I Anesthesia Record I Intake, IV Amount: 1,500 Estimated blood loss (mL): 1,200 Urine output (mL): 200 Blood Pressure: 149/100 SaO2: 96 Pulse Rate: 95 Respiratory Rate: 14 Temperature: 98 F Patient is:: Drowsy and Stable Stable to PACU at:: 18:17
--- NOTE | 2023-01-24 19:12 | PC.NURSE ---
All charting and care completed under my direct supervision
--- NOTE | 2023-01-24 19:13 | EXP.OP.NOTE ---
Date of procedure: 01/24/23 Pre-op Diagnosis:: 1. 36 4/7 2. Mild Preeclampsia 3. Failure to progress in labor Post-op Diagnosis:: Same Procedure performed:: Low Transverse C Section Surgeon:: Isabella Landrum MD Compliance Attorney(s):: Rachel Heaton DO CHIEF OPERATIONS OFFICER:: Bill Guidolaina Anesthesia: epidural Estimated blood loss (mL): 1,200 Operative findings:: Vigorous male infant in vertex presentation, Apgars 8 & 8 Moderate oozing from all layers Operative note:: The patient was taken to the OR and was prepped and draped in normal sterile fashion. Adequate epidural anesthesia was confirmed. A pfannenstiel skin incision was made with the scalpel and carried down to the fascia. The fascia was incised in the midline and sharply dissected off the rectus muscles. The muscles were in the midline and the peritoneum was entered sharply and extended bluntly. The Roly-O self retaining retractor was placed in the abdomen and a bladder flap was created. The uterus was incised in the lower uterine segment in a transverse fashion and extended bluntly. The infant was delivered in controlled fashion, without complication or shoulder dystocia. The infant was vigorous at and handed to awaiting fuel verification technician for evaluation after cord clamped and cut. Cord blood was collected and a cord segment was preserved. The placenta was manually extracted and noted to be intact. The uterus was bleeding briskly from both corners, which were clamped with a ring forcep. The uterus was repaired with 0-vicryl in a running/locked fashion, in two layers. There was moderate superficial oozing from the area of vesico-uterine peritoneum dissection. Surgifoam was placed over this area and the bladder flap was closed with 2-0 vicryl over the foam. The peritoneum was closed with 2-0 vicryl in a running fashion. Chintan was used to treat oozing from the rectus muscles. The fascia was closed with #1 vicryl in a running fashion. The subcutaneous fat was closed with 2-0 vicryl in an interrupted fashion. The skin was closed with grace. The patient tolerated the procedure well. EBL was 1200cc; TXA was given intra-operatively and second IV was started, per protocol. Sponge, lap, needle and instrument counts were correct x 2. She was taken to PACU awake and in stable condition. Condition: stable Disposition: PACU Specimens:: Placenta Complications:: hemorrhage
[2023-01-25] VITALS (7 sets, daily range): BP systolic 118–141; BP diastolic 64–93; PULSE 78–122; RESP 16–18; TEMP 36.4–37.2; O2SAT 97–99
[2023-01-25 07:58] LABS: Hematocrit 22.6 % (37.0-47.0); Hemoglobin 7.5 g/dL (12.2-16.2)
--- NOTE | 2023-01-25 08:36 | EXP.ACUTE.PN ---
Subjective *Date: 01/25/23 *Time: 08:36 Interval history: POD # 1 s/p PLTCS Resting in bed. Pain somewhat controlled. Appropriate lochia. Bottle feeding. Voiding without difficulty. Not passing flatus yet. Tolerating regular diet. Denies fever/chills, chest pain and shortness of breath. Denies headaches, dizziness/lightheadedness and vision changes. Admits to bilateral lower extremity swelling. No calf tenderness. Medical Exam Vital signs and Labs for Last 24 Hours: Vital Signs Temp Pulse Pulse Resp BP BP Pulse Ox 01/25/23 04:08 98.6 F 80 18 124/76 99 01/25/23 00:30 98.1 F 87 18 122/77 01/24/23 20:00 97.9 F 76 17 126/78 100 01/24/23 18:47 98.0 F 78 12 141/93 H 96 01/24/23 18:42 98.0 F 76 12 142/87 H 97 01/24/23 18:37 98.0 F 82 12 144/97 H 96 01/24/23 18:32 98.0 F 82 12 141/93 H 98 01/24/23 18:27 98.0 F 82 12 144/97 H 98 01/24/23 18:22 98.0 F 93 H 12 149/100 H 97 01/24/23 09:15 98.1 F 80 18 131/85 100 01/24/23 18:24 98 F 95 H 14 149/100 H Intake and Output 01/24/23 01/25/23 01/25/23 23:59 07:59 15:59 Intake Total 1500 / 1500 Output Total 500 / 500 Balance 1500 / 1500 -500 / -500 Intake: Intake, Total IV Amount 1500 / 1500 Output: Output, Urine Amount 500 / 500 Laboratory Results - last 24 hr 01/23/23 14:08: Urine Color Yellow, Urine Appearance Clear, Urine pH 6.5, Ur Specific [place] 1.010, Urine Protein Negative, Urine Glucose (UA) Negative, Urine Ketones Negative, Urine Blood Trace-l, Urine Nitrate Negative, Urine Bilirubin Negative, Urine Urobilinogen 0.2, Ur Leukocyte Esterase Negative, Urine RBC 3-5, Urine WBC None, Ur Squamous Epith Cells 3-5, Urine Bacteria Trace 01/23/23 14:08: Urine Opiates Screen Negative, Urine Methadone Screen Negative, Ur Barbituates Screen Negative, Ur Phencyclidine Scrn Negative, Ur Amphetamines Screen Negative, U Benzodiazepines Scrn Negative, Urine Cocaine Screen Negative, U Marijuana (THC) Screen Negative 01/23/23 15:50: Blood Type O Positive, Antibody Screen Negative, Crossmatch (AHG) See Detail 01/25/23 07:28: Hgb 7.5 L, Hct 22.6 L I & O for Labs for Last 24 Hours: Intake & Output 01/22/23 01/23/23 01/24/23 01/25/23 23:59 23:59 23:59 23:59 Intake Total 1500 / 1500 Output Total 500 / 500 Balance 1500 / 1500 -500 / -500 Weight 202 lb Head: Present atraumatic and normocephalic ENT: Present mucous membranes moist Neck: Present normal inspection and full ROM Respiratory: Present CTA bilaterally and normal respiratory effort Cardiac: Present Reg Rate and Rhythm GI: Present soft and normal bowel sounds; Absent distention or tenderness Comments:: Uterine fundus firm and below umbilicus, incision dressing without significant drainage Rectal (female): Present deferred (female): Present deferred Extremities: Present full ROM and edema (+3 bilateral lower extremity edema); Absent calf tenderness Neuro: Present alert, awake, oriented x 3 and moves all extremities Assessment and Plan *Assessment and plan (1) 36 weeks gestation of : Status: Acute Category: Medical Code(s): Z3A.36 - 36 weeks gestation of (2) S/P primary low transverse : Status: Acute Category: Surgical Code(s): Z98.891 - History of uterine scar from previous surgery (3) Gestational hypertension w/o significant proteinuria in 3rd trimester: Status: Acute Category: Medical Code(s): O13.3 - Gestational [-induced] hypertension without significant proteinuria, third trimester (4) Genital herpes affecting : Status: Acute Category: Medical Code(s): O98.319 - Other infections with a predominantly sexual mode of transmission complicating , unspecified trimester; A60.09 - Herpesviral infection of other urogenital tract (5) Rubella non-immune status, antepartum: Status: Acute
--- NOTE | 2023-01-25 13:58 | P.PNANES_ITS ---
[facility] Anesthesia Record Part II Anesthesia Record Part II Discharge Time: 18:47 Destination: Obstetric PACU nurse assessment reviewed?: Yes Patient Condition:: Good Anesthesia Complications:: None Swallowing reflex intact?: Yes Cyanosis?: No Blood Pressure: 141/93 Pulse Rate: 78 Temperature: 98 F Mental Status: Alert & Oriented Pain level:: 4 Nausea and/or vomitting:: None Intake, IV Amount: 0
[2023-01-26 04:04] VITALS: BP 133/68; PULSE 105; RESP 17; TEMP 36.7; O2SAT 98
[2023-01-26 09:00] VITALS: BP 109/61; PULSE 109; RESP 18; TEMP 36.8; O2SAT 99
--- NOTE | 2023-01-26 10:33 | EXP.DC.SUM ---
General Admission date:: 01/23/23 Discharge date: 01/26/23 HPI HPI HPI: 22 yo admitted at 36 12/18 directly from office for elevated blood pressure BP in office 150/98 with 3+ pedal edema Trace protein in urine She reported new onset headaches and visual disturbances BP in OB triage 140-150/80-90 Reflexes 2+ She also reported decreased movement but NST has been reactive She was advised that delivery was indicated in the context of elevated blood pressures with PIH symptoms, in spite of prematurity, and she and baby's father are in agreement with this plan She has been counseled that the infant could require transfer to a tertiary facility due to prematurity, but that immediate delivery was appropriate in the context of maternal diagnosis of preeclampsia after 36 weeks care at [facility]-- Dr. Landrum complicated by contractions, history of HSV and Rubella non-immune maternal status She is currently taking Valtex for prophylaxis She had abnormal 1hr GTT but normal 3hr GTT Hospital Course Hospital Course Hospital Course: Postop course significant for anemia following hemorrhage, exacerbating antepartum anemia Hgb on POD #1 was 7.5 She is asymptomatic with anemia and refuses transfusion She agreed to IV Venofer infusion She is doing well and is discharged home on POD #2 in stable condition She is ambulating and voiding without difficulty She is tolerating a regular diet She was offered MMR vaccine prior to discharge Exam Data for Last 24 hours Vital signs and Labs for Last 24 Hours: Temp Pulse Resp BP Pulse Ox 98.2 F 109 H 18 109/61 L 99 01/26/23 09:00 01/26/23 09:00 01/26/23 09:00 01/26/23 09:00 01/26/23 09:00 I & O for Last 24 hours: Intake & Output 01/23/23 01/24/23 01/25/23 01/26/23 11:59 11:59 11:59 11:59 Intake Total 1500 / 1500 0 / 0 Output Total 500 / 500 Balance 1000 / 1000 0 / 0 Weight 202 lb Constitutional Constitutional: no acute distress *Routine HEENT Exam Head: Present normocephalic Eye: Absent conjunctival icterus or scleral injection ENT: Present mucous membranes moist *Routine Neck Exam Neck: Present supple *Routine Respiratory Exam Respiratory: Present CTA bilaterally *Routine Cardiovascular Exam Cardiovascular: Present RRR *Routine Abdominal Exam Abdominal: Present soft; Absent tenderness or distended *Routine Rectal Exam Patient deferred: visual exam and digital exam *Routine Exam Patient deferred: external exam Comments: Fundus firm below umbilicus *Routine Extremities Exam Extremities: Present edema *Routine Skin Exam Skin: Present intact and dry Comments: Incision intact without erythema or purulent drainage *Routine Neurological Exam Neurological: Present alert and oriented X3 Routine Psychiatric Exam Psychiatric: Present normal affect; Absent depressed DS: Diagnosis Discharge Diagnosis (1) 36 weeks gestation of : Status: Acute (2) S/P primary low transverse : Status: Acute (3) Gestational hypertension w/o significant proteinuria in 3rd trimester: Status: Acute (4) Genital herpes affecting : Status: Acute (5) Rubella non-immune status, antepartum: Status: Acute (6) Obesity affecting : Status: Acute (7) Acute blood loss anemia: Status: Acute Meds Home Medications and Allergies Home Medications Medication Instructions Recorded Confirmed Type pediatric multivitamin no.76 1 tab PO BID Supplement 07/20/22 01/24/23 History (Flintstones Complete chewable tablet) omeprazole 20 mg capsule,delayed 20 mg PO DAILY Acid reflux 01/24/23 01/24/23 History release valacyclovir 500 mg tablet 500 mg PO BID Infection 01/24/23 01/24/23 History (Valtrex) ibuprofen 400 mg tablet 800 mg PO Q6HP PRN Mild To 01/26/23 Rx Moderate Pain #30 tabs oxycodone 5 mg tablet 10 mg PO Q6HP PRN Moderate To 01/26/23
--- NOTE | 2023-01-29 19:06 | PC.NURSE ---
Pts grace removed at this time. Low transverse incision C/D/I. Pt tolerated removal well. Steri strips applied
== END 2023-01-26 13:30 | disposition home or self-care (01) | DRG 787 ==
LOC: OBOUT 15:07 → OB 15:07
PROVIDERS: Admitting Provider Obstetrics & Gynecology; PCP Nurse Practitioner Family; Visit Provider Obstetrics & Gynecology
PROC: 10D00Z1 Extraction of Products of Conception, Low, Open Approach (ICD-10-PCS; CPT 59514; principal; 2023-01-24 16:00)
DX: O14.04 Mild to moderate pre-eclampsia, complicating childbirth (principal); O98.32 Other infections with a predominantly sexual mode of transmission complicating childbirth; Z37.0 Single live birth; O62.0 Primary inadequate contractions; O99.214 Obesity complicating childbirth; O90.81 Anemia of the puerperium; O72.1 Other immediate postpartum hemorrhage; A60.00 Herpesviral infection of urogenital system, unspecified; O16.4 Unspecified maternal hypertension, complicating childbirth
CPT/HCPCS: 59514; 36415; 59025; 80048; 80305; 81001; 84450; 84460; 84550; 85014; 85018; 85025; 85378; 85384; 85610; 85730; 86850; 90707; 94761; C1758; C9290; C9803; G0283; J0290; J1756; J2405; J2505; U0003; U0005

== ENCOUNTER → 2023-07-10 14:41 | Outpatient (CLI) | payer MEDICAID, SELFPAY ==
[2023-07-10 15:25] LABS: Basophils % 0.8 % (0.1-2.0); Eosinophils # 0.2 K/mm3 (0.0-0.4); Eosinophils % 3.5 % (0.1-12.0); Hematocrit 35.7 % (37.0-47.0); Hemoglobin 10.8 g/dL (12.2-16.2); Lymphocytes # 1.8 K/mm3 (0.7-4.5); Lymphocytes % 37.7 % (10-50); Mean Corpuscular HGB Conc 30.2 g/dL (31.8-35.4); Mean Corpuscular Hemoglobin 24.4 pg (27.0-31.2); Mean Platelet Volume 7.1 fl (7.4-10.4); Monocytes # 0.2 K/mm3 (0.1-1.0); Monocytes % 4.7 % (1.7-9.3); Neutrophils # 2.6 K/mm3 (1.8-7.8); Neutrophils % 53.4 % (37.0-80.0); Platelet Count 354 K/mm3 (142-424); Red Blood Count 4.41 M/mm3 (4.20-5.40); Red Cell Distribution Width 15.2 % (11.5-17.5); White Blood Count 4.8 K/mm3 (4.8-10.8)
[2023-07-10 15:48] LABS: Urine Pregnancy, HCG Qual. Negative (Negative)
[2023-07-10 16:02] LABS: Chloride 105 mmol/L (98-107); Potassium 3.9 mmoL/L (3.5-5.1); Sodium 142 mmol/L (136-145)
[2023-07-10 16:05] LABS: Anion Gap 9.9 mEq/L (5-15); Blood Urea Nitrogen 6 mg/dl (7-17); Calcium 9.3 mg/dl (8.4-10.2); Carbon Dioxide 31 mmol/L (22.0-30.0); Estimated Glomerular Filt Rate 152 ml/min (>60); GFR (African American) 183 ML/MIN (>60); Glucose 97 mg/dl (74-100)
== END ==
PROVIDERS: PCP Nurse Practitioner Family; Visit Provider Surgery
DX: Z01.812 Encounter for preprocedural laboratory examination (principal); L05.01 Pilonidal cyst with abscess
CPT/HCPCS: 36415; 80048; 81025; 85025

== ENCOUNTER 2023-07-25 08:24 | Day surgery (SDC) | payer MEDICAID, SELFPAY ==
[2023-07-24 10:38] VITALS: BMI 29.2
[2023-07-25] VITALS (10 sets, daily range): BP systolic 92–141; BP diastolic 56–80; PULSE 61–99; RESP 14–18; TEMP 36.1–43; O2SAT 96–99
[2023-07-25 08:53] LABS: Urine Pregnancy, HCG Qual. Negative (Negative)
--- NOTE | 2023-07-25 10:16 | P.OP_ITS ---
Date of procedure: 07/25/23 Pre-op Diagnosis:: Pilonidal cyst Post-op Diagnosis:: Same Procedure performed:: Excision/debridement of pilonidal cyst Surgeon:: Juan Ramon Ngo MD ASSOCIATE PROFESSOR OF MEDICINE:: Quoc Pringle Anesthesia: LMA Estimated blood loss (mL): 10 Operative findings:: Pilonidal punctum excised Small cystic extension with leftward projection debrided Operative note:: After informed consent was obtained the patient was taken to the operating room and placed in the supine position. General anesthesia with laryngeal mask airway was induced. She was then transferred to the right lateral decubitus position. Her buttock cleft region was prepped and draped in a sterile fashion. After infiltration with local anesthetic an incision was made around the pilonidal punctum. The underlying tissue was excised/debrided sharply. A small cystic cavity projecting leftward was debrided. Electrocautery was utilized to achieve hemostasis. The wound was packed with dry gauze. Dressings were applied and the patient was transferred to recovery in stable condition after removal of her laryngeal mask airway. Condition: stable Disposition: PACU Specimens:: Pilonidal cyst/punctum Complications:: No immediate
--- NOTE | 2023-07-25 10:24 | P.PNANES_ITS ---
[facility] Disclaimer: The information contained in this section may have been updated after the patient was seen, as this information can be updated by other users. Medical History Acute blood loss anemia Encounter for insertion of intrauterine contraceptive device (IUD) Jimena 03/18/23 Surgical History S/P primary low transverse Family History Other Cancer Diabetes Heart attack Thyroid disorder Social History Smoking Status: Never smoker alcohol intake: former substance use type: denies use current occupational status: unemployed Travel in the last 8 weeks: None [facility] Anesthesia Checklist Patient Identification Patient Identification: Arm Band Structural Data Admitted From: Home Planned Operative Procedure/s: Excision of Pilonidal Cyst Consent for Planned Operative Procedure(s) Verified: Yes Verified Documents: Surgical Consent and History and Physical NPO Status Verified Time NPO: 00:00 Additional verifications Anesthesia Reactions: No Hx Blood Transfusions: No Airway Assessment Mallampati Score:: Class II C-Spine Mobility Assessed: Yes TMJ Mobility Assessed: Yes Dentition: Good Dentition Neurological Assessment Level of Consciousness: Awake and Alert Anesthesia Plan Anesthesia Risk discussed: Yes Anesthesia Plan: Verified ASA Class: I Anesthesia Type: General
--- NOTE | 2023-07-25 10:25 | P.PNANES_ITS ---
[facility] Anesthesia Record Part I Anesthesia Record I Intake, IV Amount: 400 Hydration: Adequate Estimated blood loss (mL): 5 Urine output (mL): 0 Blood Products used (#): none Blood Pressure: 141/61 SaO2: 97 Pulse Rate: 99 Airway Patency: Patent Respiratory Rate: 16 Temperature: 97.5 F Patient is:: Drowsy and Stable Stable to PACU at:: 10:20
--- NOTE | 2023-07-25 12:04 | P.PNANES_ITS ---
[facility] Anesthesia Record Part II Anesthesia Record Part II Discharge Time: 10:50 Destination: Surgical Day Care (OP Surgery) PACU nurse assessment reviewed?: Yes Patient Condition:: Good Anesthesia Complications:: None Swallowing reflex intact?: Yes Airway Patency: Patent Cyanosis?: No Blood Pressure: 122/73 SaO2: 97 Respiratory Rate: 14 Pulse Rate: 67 Temperature: 97.7 F Mental Status: Alert & Oriented Pain level:: 5 Nausea and/or vomitting:: None Intake, IV Amount: 0 Hydration: Adequate
== END 2023-07-25 11:25 | disposition home or self-care (01) ==
PROVIDERS: PCP Nurse Practitioner Family; Visit Provider Surgery
PROC: (CPT 11770; principal; 2023-07-25 10:15)
DX: L05.91 Pilonidal cyst without abscess (principal)
CPT/HCPCS: 11770; 81025; 96374; J2405

== ENCOUNTER → 2023-08-30 13:49 | Outpatient (CLI) | payer MEDICAID, SELFPAY ==
--- NOTE | 2023-08-30 13:49 | US_ITS ---
PROCEDURE: US TRANSVAGINAL CLINICAL INDICATION: pelvic pain COMPARISON: No exams were available for comparison FINDINGS: Transvaginal sonographic images of the pelvis were obtained. UTERUS: 9.4 cm x 6.4 cmx 4.7 cm with a combined endometrial thickness of 8.5 mm. A scar is present An IUD is present in the lower uterus. Superior aspect of the IUD is just under the scar. LEFT OVARY: 3.3 cmx2.4 cmx2.4cm with a volume of 9.7ml. RIGHT OVARY: 3.5 cm x 2.7 cmx1.5 cm with a volume of 7.5ml. There are multiple small follicles. Both ovaries are seen and appear normal. Doppler flow to both ovaries are seen. There is a small amount of fluid in the cul-de-sac measuring 3.4 cm x 1.7 cm x 0.9 cm. IMPRESSION: 1. Anteverted uterus normal in shape and size. 2. There is an IUD present in the lower uterus/upper cervix. The superior part of the IUD is just under the scar. 3. Both ovaries are seen and appear normal. 4. There is a small amount of fluid in the cul-de-sac. Dictated by: Alireza Palmer MD 09/01/2023 12:20 Alireza Palmer MD in OV 09/01/2023 12:20
== END ==
PROVIDERS: PCP Nurse Practitioner Family; Visit Provider Obstetrics & Gynecology
DX: R10.2 Pelvic and perineal pain (principal)
CPT/HCPCS: 76830

== ENCOUNTER 2024-01-19 18:52 | Emergency (ER) | payer MEDICAID, SELFPAY ==
[2024-01-19] VITALS (8 sets, daily range): BP systolic 97–131; BP diastolic 56–92; PULSE 75–110; RESP 18–19; TEMP 36.7–36.8; O2SAT 96–99; BMI 31.3
--- NOTE | 2024-01-19 18:56 | ED_ITS ---
<Statement entered by Sera Landrum MD - 01/19/24 22:41> I was consulted by the GURVINDER, and we discussed the complexity of the problems being addressed. I approved the treatment and management plan for this patient's care in the emergency department, thus performing a substantive portion of the medical decision making. Sera Landrum MD, INA, FACEP Discharge Plan Disposition Patient Disposition: Home, Self-Care Condition: Good Prescriptions Prescriptions: New ciprofloxacin HCl [Cipro] 500 mg tablet 500 mg PO BID Qty: 20 0RF metronidazole 500 mg tablet 500 mg PO Q8H 7 Days Qty: 21 0RF prednisone 50 mg tablet 50 mg PO DAILY 7 Days Qty: 7 0RF No Action Kyleena 17.5 mcg/24 hrs (5 yrs) 19.5 mg intrauterine device intrauterine Humira(CF) Pen 40 mg/0.4 mL pen injector kit SQ Referrals Follow up/Referrals: Rubens Diane APRN [Primary Care Provider] - See instructions Robert Yeung [Referring] - See instructions Activity Restrictions/Add. Instructions Additional Instructions/Restrictions: Please take all the medication as needed subscribe. I made a referral for gastroenterology please call in morning to make an appointment. Clinical Impressions Clinical Impression: Exacerbation of Crohn's disease Instructions Patient Instructions: DI for Acute Abdominal Pain Discharge ED Provider: Sera Landrum General Adult HPI General Chief complaint: Abdominal Pain Stated complaint: diarrhea, abd pain Time Seen by Provider: 01/19/24 18:56 History of Present Illness HPI narrative: She presents for a 48-hour history of increasing diffuse abdominal pain with increase and yellowish foamy diarrhea. Patient has a 6 to 7-month history of confirm diagnosis of Crohn's and is followed by Dr. Glover in [facility]. Patient has tried Humira and now is currently on Skyrizi and has yet to have her second injection. However over the last 2 days she has had a significantly increase in amount of diffuse abdominal pain along with increasing bloating and yellowish foamy diarrhea. Patient states that she has mucousy stool almost every day however that is also increased. Patient denies fever chills hemoptysis hematochezia melena hematemesis hematuria and reports nausea no vomiting. Related Data Home Medications Medication Instructions Recorded Confirmed levonorgestrel 17.5 mcg/24 hrs intrauterine 08/21/23 10/01/23 (5yrs) 19.5mg intrauterine device (Kyleena) adalimumab 40 mg/0.4 mL mg SQ 08/28/23 10/01/23 subcutaneous pen kit (Humira(CF) Pen) Previous Rx's Medication Instructions Recorded ciprofloxacin HCl 500 mg tablet 500 mg PO BID #20 tabs 01/19/24 (Cipro) metronidazole 500 mg tablet 500 mg PO Q8H 7 days #21 tabs 01/19/24 prednisone 50 mg tablet 50 mg PO DAILY 7 days #7 tabs 01/19/24 Allergies Allergy/AdvReac Type Severity Reaction Status Date / Time No Known Allergies Allergy Verified 10/01/23 10:34 [facility] Disclaimer: The information contained in this section may have been updated after the patient was seen, as this information can be updated by other users. Medical History Acute blood loss anemia Encounter for insertion of intrauterine contraceptive device (IUD) Kyleena 09/03/23 History of pilonidal cyst Surgical History S/P primary low transverse Family History Other Cancer Diabetes Heart attack Thyroid disorder Social History Smoking Status: Never smoker alcohol intake: former substance use type: denies use current occupational status: unemployed Travel in the last 8 weeks: None ROS Obtained: Yes Systems reviewed as appropriate & no additional complaints except as documented Physical Exam General General appearance: alert and in no apparent distress Head Head exam: atraumatic and normal inspection Eye Eye exam: Present normal appearance and PERRL ENT ENT exam: Present normal exam, normal oropharynx and mucous membranes moist Respiratory Respiratory exam: Present normal lung sounds bilaterally; Absent accessory muscle use Cardiovascular Cardiovascular exam: Present normal rhythm, tachycardia and +S2 Abdominal Exam Abdominal exam: Present soft, tenderness (Diffusely mildly tender to palpation) and hyperactive bowel sounds; Absent guarding or rebound Extremities Exam Extremities exam: Present normal inspection and full ROM Neurological Exam Neurological exam: Present alert and oriented X3 Skin Skin exam: Present warm and dry Medical Decision Making Medical Records Medical records reviewed: Yes I reviewed the patient's medical records. Aneudy Inquiry Pt receiving controlled substance: No Vital Signs: 01/19/24 18:54 01/19/24 19:30 01/19/24 20:00 Temperature 98.3 F Temperature Source Oral Pulse Rate 110 H 92 H Pulse Rate [Right] 105 H Respiratory Rate 19 Blood Pressure 105/72 L 97/60 L Blood Pressure [Right Arm] 131/92 H Blood Pressure Mean [Right Arm] 105 Blood Pressure Source [Right Arm] Automatic Cuff 02 Sat by Pulse Oximetry 98 99 98 Oxygen Delivery Method Room Air 01/19/24 20:52 01/19/24 21:00 01/19/24 21:30 Temperature Temperature Source Pulse Rate 82 84 75 Pulse Rate [Right] Respiratory Rate Blood Pressure 108/68 L 127/76 125/56 L Blood Pressure [Right Arm] Blood Pressure Mean [Right Arm] Blood Pressure Source [Right Arm] 02 Sat by Pulse Oximetry 99 99 99 Oxygen Delivery Method 01/19/24 22:00 Temperature Temperature Source Pulse Rate 88 Pulse Rate [Right] Respiratory Rate Blood Pressure 98/59 L Blood Pressure [Right Arm] Blood Pressure Mean [Right Arm] Blood Pressure Source [Right Arm] 02 Sat by Pulse Oximetry 96 Oxygen Delivery Method Lab Data Lab results reviewed: Yes I reviewed the patient's lab results. Lab Results 01/19/24 19:10: WBC 5.6, RBC 5.31, Hgb 15.4, Hct 49.1 H, MCV 92.4, MCH 28.9, M CHC 31.3 L, RDW 13.7, Plt Count 243, MPV 8.4, Neut % (Auto) 62.9, Lymph % (Auto) 24.4, [place] % (Auto) 6.1, Eos % (Auto) 4.9, Baso % (Auto) 1.7, Neut # (Auto) 3.5, Lymph # (Auto) 1.4, [place] # (Auto) 0.3, Eos # (Auto) 0.3, Baso # (Auto) 0.1, PT 10.8, INR 1.00, Sodium 142, Potassium 3.9, Chloride 105, Carbon Dioxide 23, A nion Gap 17.9 H, BUN 7, Creatinine 0.50 L, Estimated Creat Clear 220, Estimated GFR 152, Est GFR ( Amer) 183, Glucose 96, Lactate 1.2, Calcium 10.4 H, Magnesium 1.9, Total Bilirubin 0.8, AST 40 H, ALT 42, Alkaline Phosphatase 63, C -Reactive Protein 27.4 H, Total Protein 9.2 H, Albumin 5.6 H, Globulin 3.6 H, Albumin/Globulin Ratio 1.6, Serum HCG, Qual Negative 01/19/24 20:34: Urine Color Yellow, Urine Appearance Clear, Urine pH 6.0, Ur Specific [place] 1.010, Urine Protein Negative, Urine Glucose (UA) Negative, Urine Ketones Negative, Urine Blood Negative, Urine Nitrate Negative, Urine Bilirubin Negative, Urine Urobilinogen 0.2, Ur Leukocyte Esterase Negative, Urine RBC None, Urine WBC None, Ur Squamous Epith Cells 5-10, Urine Bacteria None 01/19/24 19:10 01/19/24 19:10 Orders (Tests/Meds): ED MEDICATIONS Generic Name Dose Route Start Last Admin Trade Name Freq PRN Reason Stop Dose Admin Levofloxacin/Dextrose 750 mg in 150 mls @ 100 mls/hr 01/19/24 20:30 Levofloxacin 750mg/150ml Premix IV 01/29/24 20:29 Q24H SHERLY Sodium Chloride 10 ml 01/19/24 21:18 01/19/24 21:19 Sodium Chloride 0.9% 10ml Syr (Rad Only) IV 02/18/24 21:17 10 ml NEEDED PRN Administration Maintain IV Site Discontinued Medications Generic Name Dose Route Start Last Admin Trade Name Freq PRN Reason Stop Dose Admin Acetaminophen 1,000 mg 01/19/24 19:26 01/19/24 19:42 Acetaminophen 1,000mg/100ml Vial IV 01/19/24 19:27 1,000 mg ONCE ONE Administration Lactated Ringer's 1,000 mls @ 999 mls/hr 01/19/24 19:26 01/19/24 19:42 Lactated Ringer's 1000 Ml Bag IV 01/19/24 20:26 999 mls/hr .Q1H1M ONE Administration Metronidazole 500 mg in 100 mls @ 100 mls/hr 01/19/24 20:26 01/19/24 20:48 Flagyl 500mg/100ml Ivpb IV 01/19/24 21:25 100 mls/hr ONCE ONE Administration Iopamidol 75 ml 01/19/24 21:18 01/19/24 21:19 Iopamidol-370 (76%);100ml Bottle IV 01/19/24 21:19 75 ml ONCE ONE Administration Ketorolac Tromethamine 15 mg 01/19/24 19:26 01/19/24 19:43 Ketorolac 30mg/Ml Vial IV 01/19/24 19:27 15 mg ONCE ONE Administration Methylprednisolone Sodium Succinate 125 mg 01/19/24 20:26 01/19/24 20:49 Methylprednisolone Sod Succ 125mg Vial IV 01/19/24 20:27 125 mg ONCE ONE Administration ORDERS Category Date Time Status CT abdomen pelvis w con Stat Cat Scan 01/19/24 20:15 Completed CBC w/Auto Diff [Complete Blood Count Auto Diff] Stat Lab 01/19/24 19:10 Completed CMP [Comprehensive Metabolic Panel] Stat Lab 01/19/24 19:10 Completed CRP [C-Reactive Protein] Stat Lab 01/19/24 19:10 Completed Diarrhea 23 Panel, PCR Stat Lab 01/19/24 20:23 Ordered HCG Qualitative, Serum Stat Lab 01/19/24 19:10 Completed INR [Prothrombin Time INR] Stat Lab 01/19/24 19:10 Completed Lactic Acid Stat Lab 01/19/24 19:10 Completed Magnesium Stat Lab 01/19/24 19:10 Completed UA [Urinalysis and Microscopic] Stat Lab 01/19/24 20:34 Completed Medical Decision Narrative: In summary patient is a 23-year-old female who presents to the emergency department for evaluation of 48 hours of abdominal pain. Patient is hemodynamically stable afebrile on arrival . Physical exam is remarkable for diffuse abdominal tenderness without rebound guarding or rigidity. Bowel sounds are hyperactive.. Differential diagnosis includes perforation versus abscess of bowel versus gastroenteritis. Initial workup will be conducted with hematologic labs. Initial interventions include Toradol Tylenol and a crystalloid bolus. Initial workup reviewed by me shows a normal white count with no shift, and elevated CRP and the remainder of her hematologic labs are nonactionable.. Upon repeat evaluation patient reports minimal increase in her symptoms and pain is subsided to just cramping. I discussed the patient management with Dr. Robert Yeung of gastroenterology. Given no evidence of a surgical indication and no evidence of abscess formation patient can be discharged with p.o. antibiotics and steroids. Dr. Yeung will follow her closely as an outpatient. Given this appropriate for discharge home with prescriptions for Cipro and Flagyl along with p.o. prednisone and referral to gastroenterology in [place]. Critical Care Critical Care Time Critical Care Time: No
[2024-01-19 19:33] LABS: Basophils # 0.1 K/mm3 (0-0.2); Basophils % 1.7 % (0.1-2.0); Eosinophils # 0.3 K/mm3 (0.0-0.4); Eosinophils % 4.9 % (0.1-12.0); Hematocrit 49.1 % (37.0-47.0); Hemoglobin 15.4 g/dL (12.2-16.2); Lymphocytes # 1.4 K/mm3 (0.7-4.5); Lymphocytes % 24.4 % (10-50); Mean Corpuscular HGB Conc 31.3 g/dL (31.8-35.4); Mean Corpuscular Hemoglobin 28.9 pg (27.0-31.2); Mean Corpuscular Volume 92.4 fl (81-99); Mean Platelet Volume 8.4 fl (7.4-10.4); Monocytes # 0.3 K/mm3 (0.1-1.0); Monocytes % 6.1 % (1.7-9.3); Neutrophils # 3.5 K/mm3 (1.8-7.8); Neutrophils % 62.9 % (37.0-80.0); Platelet Count 243 K/mm3 (142-424); Red Blood Count 5.31 M/mm3 (4.20-5.40); Red Cell Distribution Width 13.7 % (11.5-17.5); White Blood Count 5.6 K/mm3 (4.8-10.8)
[2024-01-19 19:39] LABS: Alanine Aminotransferase 42 U/L (12-78); Albumin Level 5.6 g/dl (3.5-5.0); Albumin/Globulin Ratio 1.6 (1.1-1.8); Alkaline Phosphatase 63 U/L (38-126); Anion Gap 17.9 mEq/L (5-15); Aspartate Amino Transferase 40 U/L (14-36); Bilirubin,Total 0.8 mg/dl (0.2-1.3); Blood Urea Nitrogen 7 mg/dl (7-17); Calcium 10.4 mg/dl (8.4-10.2); Carbon Dioxide 23 mmol/L (22.0-30.0); Chloride 105 mmol/L (98-107); Creatinine Clearance Estimated 220 mL/min (50-200); Estimated Glomerular Filt Rate 152 ml/min (>60); GFR (African American) 183 ML/MIN (>60); Globulin 3.6 g/dL (1.3-3.2); Glucose 96 mg/dl (74-100); Magnesium 1.9 mg/dl (1.6-2.3); Potassium 3.9 mmoL/L (3.5-5.1); Sodium 142 mmol/L (136-145); Total Protein,Serum 9.2 g/dl (6.3-8.2)
[2024-01-19 19:40] LABS: Lactic Acid 1.2 mmol/L (0.7-2.1); Prothrombin Time 10.8 seconds (10.1-12.5)
[2024-01-19] MEDS: ACETAMINOPHEN 1,000MG/100ML VIAL 1000 MG IV (19:42)
[2024-01-19] MEDS: LACTATED RINGERS 1000ML 1,000 ML 999 ML IV (19:42)
[2024-01-19] MEDS: KETOROLAC 30MG/ML VIAL 15 MG IV (19:43)
[2024-01-19 19:45] LABS: C-Reactive Protein 27.4 mg/L (0-4)
--- NOTE | 2024-01-19 19:55 | PC.NURSE ---
Blanca Johnson contacting [facility] for GI referral Dr. Glover
--- NOTE | 2024-01-19 20:04 | PC.NURSE ---
[facility] advised that they do not have GI coverage.
--- NOTE | 2024-01-19 20:15 | CT_ITS ---
PROCEDURE INFORMATION: Exam: CT Abdomen And Pelvis With Contrast Exam date and time: 01/19/2024 9:14 PM Age: 23 years old Clinical indication: Abdominal pain; Additional info: Acute abdominal pain, history of crohn's TECHNIQUE: Imaging protocol: Computed tomography of the abdomen and pelvis with contrast. Radiation optimization: All CT scans at this facility use at least one of these dose optimization techniques: automated exposure control; mA and/or kV adjustment per patient size (includes targeted exams where dose is matched to clinical indication); or iterative reconstruction. Contrast material: ISOVUE; Contrast volume: 75 ml; Contrast route: IV; COMPARISON: 1. US TRANSVAGINAL 08/30/2023 1:59 PM 2. US OB BIOPHYSICAL PROFILE 01/11/2023 2:47 PM 3. US OB TRANSVAGINAL 01/09/2023 3:39 PM FINDINGS: Liver: There is fat deposition adjacent to the falciform ligament. Gallbladder and bile ducts: No acute process. Pancreas: Normal. Spleen: Normal. Adrenal glands: The adrenal glands appear normal. Kidneys and ureters: There are no soft tissue renal masses or hydronephrosis. Stomach and bowel: The stomach, small bowel, and colon are well-distended and show no evidence of wall thickening, masses, or obstruction. Appendix: No evidence of appendicitis. Intraperitoneal space: Unremarkable. Vasculature: The abdominal aorta and its major branches appear normal without evidence of aneurysm or stenosis. There are pelvic phleboliths. Lymph nodes: There are mildly prominent but nonenlarged and nonspecific retroperitoneal nodes. Urinary bladder: Unremarkable as visualized. Reproductive: 2 cm left adnexal corpus luteum. There is an intrauterine device in place. Bones/joints: The visualized osseous structures of the abdomen and pelvis appear normal for patient age. Soft tissues: There is a small fat containing umbilical hernia. IMPRESSION: No acute inflammatory or obstructive process is identified. Incidental findings are described within the findings section.
[2024-01-19 20:41] LABS: Microscopic, Urine URINE MICROSCOPIC (MICROSCOPIC)
[2024-01-19 20:43] LABS: Appearance,Urine CLEAR (Clear); Bilirubin,Urine Negative (Negative); Blood, Urine Negative (Negative); Color,Urine YELLOW (Yellow); Glucose,Urine (UA) Negative (Negative); Ketones,Urine Negative (Negative); Leukocyte Esterase,Urine Negative (Negative); Nitrate,Urine Negative (Negative); Protein,Urine Negative (Negative); Urobilinogen,Urine 0.2 EU/dl (0.2)
[2024-01-19] MEDS: METRONIDAZ/SOD CHL 500 MG/100 ML PIGGYBACK 100 MG IV (20:48)
[2024-01-19] MEDS: METHYLPREDNISOLONE SOD SUCC 125MG VIAL 125 MG IV (20:49)
[2024-01-19 21:00] LABS: HCG Qualitative, Serum Negative (Negative)
[2024-01-19] MEDS: IOPAMIDOL-370 (76%);100ML BOTTLE 75 ML IV (21:19)
[2024-01-19] MEDS: SODIUM CHLORIDE 0.9% 10ML SYR (RAD ONLY) 10 ML IV (21:19)
[2024-01-19] MEDS: levoFLOXacin 750 MG TABLET PO (22:32)
== END 2024-01-19 23:10 | disposition home or self-care (01) ==
PROVIDERS: Physician Assistant; Emergency Provider Student in an Organized Health Care Education/Training Program; PCP Nurse Practitioner Family
DX: R10.84 Generalized abdominal pain; R19.7 Diarrhea, unspecified; K50.919 Crohn's disease, unspecified, with unspecified complications
CPT/HCPCS: 74177; 80053; 81001; 83605; 83735; 84703; 85025; 85610; 86140; 96361; 96365; 96366; 96375; 99285; J0131; Q9967

== ENCOUNTER 2024-05-04 18:11 | Emergency (ER) | payer MEDICAID, SELFPAY ==
[2024-05-04 18:13] VITALS: BP 107/73; PULSE 87; RESP 16; TEMP 36.8; O2SAT 99; BMI 29.2
--- NOTE | 2024-05-04 18:18 | ED_ITS ---
<Statement entered by Sera Landrum MD - 05/04/24 23:22> I was consulted by the GURVINDER, and we discussed the complexity of the problems being addressed. I approved the treatment and management plan for this patient's care in the emergency department, thus performing a substantive portion of the medical decision making. Sera Landrum MD, INA, FACEP Discharge Plan Disposition Patient Disposition: Home, Self-Care Condition: Good Prescriptions Prescriptions: New prednisone 50 mg tablet 50 mg PO DAILY 7 Days Qty: 7 0RF No Action Kyleena 17.5 mcg/24 hrs (5 yrs) 19.5 mg intrauterine device intrauterine Humira(CF) Pen 40 mg/0.4 mL pen injector kit SQ ciprofloxacin HCl [Cipro] 500 mg tablet 500 mg PO BID Qty: 20 0RF metronidazole 500 mg tablet 500 mg PO Q8H 7 Days Qty: 21 0RF prednisone 50 mg tablet 50 mg PO DAILY 7 Days Qty: 7 0RF hydrocodone-acetaminophen 5-325 mg tablet 1 tab PO Q6H PRN (Reason: pain) 3 Days Qty: 12 0RF Referrals Follow up/Referrals: Rubens Diane APRN [Primary Care Provider] - See instructions Clinical Impressions Clinical Impression: Exacerbation of Crohn's disease Qualifiers: Digestive disease complication type: without complication Qualified Code(s): K 50.90 - Crohn's disease, unspecified, without complications Instructions Patient Instructions: DI for Crohns Disease Flare Discharge ED Provider: Sera Landrum General Adult HPI General Chief complaint: Abdominal Pain Stated complaint: Abdominal pain radiating to back,HX of [place] Time Seen by Provider: 05/04/24 18:18 History of Present Illness HPI narrative: Patient presents for evaluation of abdominal pain and dark stool. Patient has a history of Crohn's and currently follows with Dr. John Yeung in [place]. She states that she has been having dark stool for 3 to 4 days and along with crampy-like abdominal pain. Patient denies bright red blood per rectum and states her pain is more cramping in nature. She denies any chest pain shortness of breath fever chills hemoptysis hematuria. Related Data Home Medications Medication Instructions Recorded Confirmed levonorgestrel 17.5 mcg/24 hr (up intrauterine 11/08/23 12/19/23 to 5 yrs) 19.5mg intrauterine device (Kyleena) adalimumab 40 mg/0.4 mL mg SQ 08/28/23 10/01/23 subcutaneous pen kit (Humira(CF) Pen) Previous Rx's Medication Instructions Recorded ciprofloxacin HCl 500 mg tablet 500 mg PO BID #20 tabs 01/19/24 (Cipro) hydrocodone 5 mg-acetaminophen 325 1 tab PO Q6H PRN pain 3 days #12 01/19/24 mg tablet tabs metronidazole 500 mg tablet 500 mg PO Q8H 7 days #21 tabs 01/19/24 prednisone 50 mg tablet 50 mg PO DAILY 7 days #7 tabs 01/19/24 prednisone 50 mg tablet 50 mg PO DAILY 7 days #7 tabs 05/04/24 Allergies Allergy/AdvReac Type Severity Reaction Status Date / Time adalimumab [From Humira] Allergy Verified 05/04/24 18:36 [facility] Disclaimer: The information contained in this section may have been updated after the patient was seen, as this information can be updated by other users. Medical History Acute blood loss anemia Encounter for insertion of intrauterine contraceptive device (IUD) Kyleena 09/03/23 History of pilonidal cyst Surgical History S/P primary low transverse Family History Other Cancer Diabetes Heart attack Thyroid disorder Social History Smoking Status: Never smoker alcohol intake: former substance use type: denies use current occupational status: unemployed Travel in the last 8 weeks: None ROS Obtained: Yes Systems reviewed as appropriate & no additional complaints except as documented Physical Exam General General appearance: alert and in no apparent distress Respiratory Respiratory exam: Present normal lung sounds bilaterally; Absent accessory muscle use Cardiovascular Cardiovascular exam: Present regular rate and normal rhythm Abdominal Exam Abdominal exam: Present soft, tenderness (Mild diffuse abdominal tenderness without rebound guarding or rigidity.) and normal bowel sounds; Absent guarding or rebound Back Exam Back exam: Present normal inspection and full ROM; Absent tenderness Neurological Exam Neurological exam: Present alert and oriented X3 Psychiatric Psychiatric exam: Present normal affect and normal mood Skin Skin exam: Present warm, dry and normal color Medical Decision Making Medical Records Medical records reviewed: Yes I reviewed the patient's medical records. Aneudy Inquiry Pt receiving controlled substance: No Vital Signs: 05/04/24 18:13 Temperature 98.2 F Temperature Source Oral Pulse Rate [Radial] 87 Respiratory Rate 16 Blood Pressure [Right Arm] 107/73 L Blood Pressure Mean [Right Arm] 84 Blood Pressure Source [Right Arm] Automatic Cuff Blood Pressure Position [Right Arm] Sitting 02 Sat by Pulse Oximetry 99 Oxygen Delivery Method Room Air Lab Data Lab results reviewed: Yes I reviewed the patient's lab results. Lab Results 05/04/24 18:15: Urine Color Yellow, Urine Appearance Sl cloudy, Urine pH 8.0, Ur Specific [place] 1.020, Urine Protein Negative, Urine Glucose (UA) Negative, Urine Ketones Negative, Urine Blood Negative, Urine Nitrate Negative, Urine Bilirubin Negative, Urine Urobilinogen 1.0, Ur Leukocyte Esterase Negative, Urine RBC None, Urine WBC Occasional, Ur Squamous Epith Cells 3-5, Urine Bacteria Trace, Urine Mucus 1+ 05/04/24 18:25: Stool Occult Blood Negative 05/04/24 18:44: WBC 6.4, RBC 4.49, Hgb 13.2, Hct 40.2, MCV 89.6, MCH 29.4, MCHC 32.8, RDW 13.4, Plt Count 262, MPV 8.1, Neut % (Auto) 56.0, Lymph % (Auto) 31.0, [place] % (Auto) 6.1, Eos % (Auto) 5.5, Baso % (Auto) 1.4, Neut # (Auto) 3.6, Lymph # (Auto) 2.0, [place] # (Auto) 0.4, Eos # (Auto) 0.4, Baso # (Auto) 0.1, Sodium 143, Potassium 3.7, Chloride 107, Carbon Dioxide 30, Anion Gap 9.7, BUN 9, Creatinine 0.70, Estimated Creat Clear 141, Estimated GFR 102, Est GFR ( Amer) 123, Glucose 90, Calcium 9.9, Magnesium 1.9, Total Bilirubin 0.1 L, AST 23, ALT 26, Alkaline Phosphatase 57, C-Reactive Protein 2.8, Total Protein 7.4, Albumin 4.6, Globulin 2.8, Albumin/Globulin Ratio 1.6, Serum HCG, Qual Negative 05/04/24 18:44 05/04/24 18:44 Orders (Tests/Meds): ED MEDICATIONS Discontinued Medications Generic Name Dose Route Start Last Admin Trade Name Bonilla PRN Reason Stop Dose Admin Acetaminophen 1,000 mg 05/04/24 18:26 05/04/24 18:58 Acetaminophen 1,000mg/100ml Vial IV 05/04/24 18:27 1,000 mg ONCE ONE Administration Lactated Ringer's 1,000 mls @ 999 mls/hr 05/04/24 18:26 05/04/24 18:58 Lactated Ringer's 1000 Ml Bag IV 05/04/24 19:26 999 mls/hr .Q1H1M ONE Administration Iopamidol 75 ml 05/04/24 19:18 05/04/24 19:20 Iopamidol-370 (76%);100ml Bottle IV 05/04/24 19:19 75 ml ONCE ONE Administration Methylprednisolone Sodium Succinate 125 mg 05/04/24 18:26 05/04/24 18:58 Methylprednisolone Sod Succ 125mg Vial IV 05/04/24 18:27 125 mg ONCE ONE Administration Ondansetron HCl 4 mg 05/04/24 18:26 05/04/24 18:57 Ondansetron 4mg/2ml Vial IV 05/04/24 18:27 4 mg ONCE ONE Administration Sodium Chloride 10 ml 05/04/24 19:18 05/04/24 19:20 Sodium Chloride 0.9% 10ml Syr (Rad Only) IV 05/04/24 19:19 10 ml ONCE ONE Administration ORDERS Category Date Time Status CT abdomen pelvis w con Stat Cat Scan 05/04/24 18:26 Completed CBC w/Auto Diff [Complete Blood Count Auto Diff] Stat Lab 05/04/24 18:44 Results CMP [Comprehensive Metabolic Panel] Stat Lab 05/04/24 18:44 Completed CRP [C-Reactive Protein] Stat Lab 05/04/24 18:44 Completed ESR [Erythrocyte Sedimentation Rate] Stat Lab 05/04/24 18:44 Results HCG Qualitative, Serum Stat Lab 05/04/24 18:44 Completed Magnesium Stat Lab 05/04/24 18:44 Completed Occult Blood,Stool Stat Lab 05/04/24 18:25 Completed UA [Urinalysis and Microscopic] Stat Lab 05/04/24 18:15 Completed Medical Decision Narrative: In summary patient is a 24-year-old female who presents to the emergency department for evaluation of abdominal pain and dark stool. Patient is hemodynamically stable upon arrival, afebrile. Physical exam shows mild diffuse abdominal tenderness without rebound or guarding or rigidity. Bowel sounds normal active. Rectal exam shows no stool in the vault no gross blood on digital exam. Differential diagnosis includes upper GI bleed versus Crohn's flare versus bloating versus gastroenteritis etc. Initial workup will be conducted with hematologic labs CT scan abdomen pelvis urinalysis. Initial interventions include crystalloid bolus Toradol Solu-Medrol. Initial workup reviewed by me shows that her hematologic labs are nonactionable urinalysis is bland and there was no blood on Hemoccult card. My pulm interpretation of CT scan abdomen pelvis shows thickening of the ileocecal junction consistent with her Crohn's disease. No perforation or free air noted.. Upon repeat evaluation patient had moderate improvement with initiation of steroids. Given this patient is appropriate for discharge with continuation of 7 days of steroids and refer back to gastroenterology Dr. Yeung. Critical Care Critical Care Time Critical Care Time: No
--- NOTE | 2024-05-04 18:26 | CT_ITS ---
PROCEDURE INFORMATION: Exam: CT Abdomen And Pelvis With Contrast Exam date and time: 05/04/2024 7:20 PM Age: 24 years old Clinical indication: Other: Dark stool; Abdominal pain; Generalized; Additional info: Abdominal pain dark stool TECHNIQUE: Imaging protocol: Computed tomography of the abdomen and pelvis with contrast. Radiation optimization: All CT scans at this facility use at least one of these dose optimization techniques: automated exposure control; mA and/or kV adjustment per patient size (includes targeted exams where dose is matched to clinical indication); or iterative reconstruction. Contrast material: ISOVUE; Contrast volume: 75 ml; Contrast route: IV; COMPARISON: CT ABDOMEN PELVIS W CON 01/19/2024 9:14 PM FINDINGS: Liver: Mild focal fat deposition in the medial segment left hepatic lobe adjacent to the falciform ligament. No other liver lesions. No hepatomegaly. Gallbladder and biliary ducts: Decompressed gallbladder. No biliary ductal dilatation. Pancreas: Normal. No ductal dilation. Spleen: Normal. No splenomegaly. Adrenal glands: Normal. No mass. Kidneys and ureters: Normal. No hydronephrosis. Stomach and bowel: Distal ileal wall thickening with mild dilatation of the ileum proximal to this segment. No other dilated bowel. Appendix: No evidence of appendicitis. Intraperitoneal space: Trace pelvic free fluid. Vasculature: Unremarkable. No abdominal aortic aneurysm. Lymph nodes: Unremarkable. No enlarged lymph nodes. Urinary bladder: Unremarkable as visualized. Reproductive: IUD in place. No adnexal masses. Involuting follicle in the left ovary. Bones/joints: Unremarkable. No acute fracture. Soft tissues: Unremarkable. IMPRESSION: 1. Distal ileal wall thickening with mild dilatation of the ileum proximal to this segment. Findings are suspicious for Crohn's disease. 2. No significant surrounding inflammatory changes. No evidence of a fistula or free air. 3. Trace pelvic free fluid.
[2024-05-04 18:33] LABS: Microscopic, Urine URINE MICROSCOPIC (MICROSCOPIC)
[2024-05-04 18:33] LABS: Occult Blood,Stool Negative (Negative)
[2024-05-04 18:35] LABS: Appearance,Urine SL CLOUDY (Clear); Bilirubin,Urine Negative (Negative); Blood, Urine Negative (Negative); Color,Urine YELLOW (Yellow); Glucose,Urine (UA) Negative (Negative); Ketones,Urine Negative (Negative); Leukocyte Esterase,Urine Negative (Negative); Nitrate,Urine Negative (Negative); Protein,Urine Negative (Negative)
[2024-05-04 18:42] LABS: Bacteria,Urine Trace /lpf; Mucus,Urine 1+ /lpf; WBC,Urine Occasional #/hpf (0-3)
[2024-05-04 18:57] LABS: Chloride 107 mmol/L (98-107); Potassium 3.7 mmoL/L (3.5-5.1); Sodium 143 mmol/L (136-145)
[2024-05-04] MEDS: ONDANSETRON 4MG/2ML VIAL 4 MG IV (18:57)
[2024-05-04] MEDS: METHYLPREDNISOLONE SOD SUCC 125MG VIAL 125 MG IV (18:58)
[2024-05-04] MEDS: LACTATED RINGERS 1000ML 1,000 ML 999 ML IV (18:58)
[2024-05-04] MEDS: ACETAMINOPHEN 1,000MG/100ML VIAL 1000 MG IV (18:58)
[2024-05-04 18:59] LABS: Blood Urea Nitrogen 9 mg/dl (7-17); Creatinine Clearance Estimated 141 mL/min (50-200); Estimated Glomerular Filt Rate 102 ml/min (>60); GFR (African American) 123 ML/MIN (>60)
[2024-05-04 19:00] LABS: Alanine Aminotransferase 26 U/L (12-78); Albumin Level 4.6 g/dl (3.5-5.0); Albumin/Globulin Ratio 1.6 (1.1-1.8); Alkaline Phosphatase 57 U/L (38-126); Anion Gap 9.7 mEq/L (5-15); Aspartate Amino Transferase 23 U/L (14-36); Calcium 9.9 mg/dl (8.4-10.2); Carbon Dioxide 30 mmol/L (22.0-30.0); Globulin 2.8 g/dL (1.3-3.2); Glucose 90 mg/dl (74-100); Magnesium 1.9 mg/dl (1.6-2.3); Total Protein,Serum 7.4 g/dl (6.3-8.2)
[2024-05-04 19:05] LABS: C-Reactive Protein 2.8 mg/L (0-4); HCG Qualitative, Serum Negative (Negative)
[2024-05-04 19:11] LABS: Bilirubin,Total 0.1 mg/dl (0.2-1.3)
--- NOTE | 2024-05-04 19:14 | PC.NURSE ---
PT TO CT
[2024-05-04] MEDS: IOPAMIDOL-370 (76%);100ML BOTTLE 75 ML IV (19:20)
[2024-05-04] MEDS: SODIUM CHLORIDE 0.9% 10ML SYR (RAD ONLY) 10 ML IV (19:20)
[2024-05-04 19:27] LABS: Basophils # 0.1 K/mm3 (0-0.2); Basophils % 1.4 % (0.1-2.0); Eosinophils # 0.4 K/mm3 (0.0-0.4); Eosinophils % 5.5 % (0.1-12.0); Hematocrit 40.2 % (37.0-47.0); Hemoglobin 13.2 g/dL (12.2-16.2); Mean Corpuscular HGB Conc 32.8 g/dL (31.8-35.4); Mean Corpuscular Hemoglobin 29.4 pg (27.0-31.2); Mean Corpuscular Volume 89.6 fl (81-99); Mean Platelet Volume 8.1 fl (7.4-10.4); Monocytes # 0.4 K/mm3 (0.1-1.0); Monocytes % 6.1 % (1.7-9.3); Neutrophils # 3.6 K/mm3 (1.8-7.8); Platelet Count 262 K/mm3 (142-424); Red Blood Count 4.49 M/mm3 (4.20-5.40); Red Cell Distribution Width 13.4 % (11.5-17.5); White Blood Count 6.4 K/mm3 (4.8-10.8)
[2024-05-04 19:30] VITALS: BP 116/84; PULSE 73; O2SAT 100
[2024-05-04 20:00] VITALS: BP 113/66; PULSE 76; O2SAT 100
[2024-05-04 20:22] VITALS: BP 113/76; PULSE 70; RESP 16; TEMP 36.7; O2SAT 98
[2024-05-04 20:25] LABS: Erythrocyte Sedimentation Rate 14 mm/hr (0-20)
== END 2024-05-04 20:31 | disposition home or self-care (01) ==
PROVIDERS: Physician Assistant; Emergency Provider Student in an Organized Health Care Education/Training Program; PCP Nurse Practitioner Family
DX: K50.919 Crohn's disease, unspecified, with unspecified complications (principal); R10.84 Generalized abdominal pain
CPT/HCPCS: 74177; 80053; 81001; 82272; 83735; 84703; 85025; 85651; 86140; 96361; 96374; 96375; 99284; G0328; J0131; J2405; J2919; J7120; Q9967

== ENCOUNTER 2024-08-25 20:12 | Emergency (ER) | payer MEDICAID, SELFPAY ==
--- NOTE | 2024-08-25 20:51 | CT_ITS ---
PROCEDURE INFORMATION: Exam: CT Abdomen And Pelvis With Contrast Exam date and time: 08/25/2024 10:04 PM Age: 24 years old Clinical indication: Other: Lower abdominal pain/diarrhea, h/o crohn's TECHNIQUE: Imaging protocol: Computed tomography of the abdomen and pelvis with contrast. Radiation optimization: All CT scans at this facility use at least one of these dose optimization techniques: automated exposure control; mA and/or kV adjustment per patient size (includes targeted exams where dose is matched to clinical indication); or iterative reconstruction. Contrast material: ISOVUE 370; Contrast volume: 75 ml; Contrast route: IV; COMPARISON: US TRANSVAGINAL 08/30/2023 1:59 PM FINDINGS: Liver: Normal. No mass. Gallbladder and biliary ducts: Normal. No calcified stones. No ductal dilation. Pancreas: Normal. No ductal dilation. Spleen: Normal. No splenomegaly. Adrenal glands: Normal. No mass. Kidneys and ureters: Normal. No hydronephrosis. Stomach and bowel: Unremarkable. No obstruction. No mucosal thickening. Appendix: No evidence of appendicitis. Intraperitoneal space: Unremarkable. No free air. No significant fluid collection. Vasculature: Unremarkable. No abdominal aortic aneurysm. Lymph nodes: Multiple subcentimeter ileocolic region lymph nodes. Urinary bladder: Unremarkable as visualized. Reproductive: Unremarkable as visualized. Bones/joints: Unremarkable. No acute fracture. Soft tissues: Unremarkable. IMPRESSION: No acute findings.
[2024-08-25 21:06] VITALS: BP 109/72; PULSE 83; RESP 16; TEMP 36.8; O2SAT 99; BMI 28.3
[2024-08-25] MEDS: 0.9 % SODIUM CHLORIDE 1000ML 1,000 ML 999 ML IV (21:15)
[2024-08-25] MEDS: KETOROLAC 30MG/ML VIAL 15 MG IV (21:15)
[2024-08-25 21:20] LABS: Basophils # 0.1 K/mm3 (0-0.2); Basophils % 1.4 % (0.1-2.0); Eosinophils # 0.5 K/mm3 (0.0-0.4); Hematocrit 38.1 % (37.0-47.0); Lymphocytes % 28.5 % (10-50); Mean Corpuscular HGB Conc 34.1 g/dL (31.8-35.4); Mean Corpuscular Hemoglobin 30.6 pg (27.0-31.2); Mean Corpuscular Volume 89.8 fl (81-99); Mean Platelet Volume 7.8 fl (7.4-10.4); Monocytes # 0.3 K/mm3 (0.1-1.0); Monocytes % 4.4 % (1.7-9.3); Neutrophils # 4.1 K/mm3 (1.8-7.8); Neutrophils % 58.7 % (37.0-80.0); Platelet Count 249 K/mm3 (142-424); Red Blood Count 4.24 M/mm3 (4.20-5.40); Red Cell Distribution Width 13.3 % (11.5-17.5)
--- NOTE | 2024-08-25 21:30 | [facility].EDGENADL ---
Discharge Plan Disposition Patient Disposition: Home, Self-Care Condition: Good Prescriptions Prescriptions: New prednisone 20 mg tablet 40 mg PO DAILY 3 Days Qty: 6 0RF naproxen 500 mg tablet 500 mg PO BID Qty: 12 0RF No Action Kyleena 17.5 mcg/24 hrs (5 yrs) 19.5 mg intrauterine device intrauterine ondansetron 4 mg tablet,disintegrating 4 mg PO PRN Skyrizi 360 mg/2.4 mL (150 mg/mL) wearable injector SQ Referrals Follow up/Referrals: Rubens Diane APRN [Primary Care Provider] - See instructions Yan Blanco II, MD [Staff Physician] - See instructions Activity Restrictions/Add. Instructions Additional Instructions/Restrictions: You were evaluated in the emergency department today. Please follow-up closely with your primary care provider as well as with gastroenterology over the next 48 hours. 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 Return to the emergency department for new or worsening symptoms peer Clinical Impressions Clinical Impression: Exacerbation of Crohn's disease Qualifiers: Digestive disease complication type: without complication Qualified Code(s): K50.90 - Crohn's disease, unspecified, without complications Stand Alone Forms Stand Alone Forms: Work/School Release Instructions Patient Instructions: DI for Crohns Disease, DI for Acute Abdominal Pain Print Language Print Language: Syriac Discharge ED Provider: Adali Metcalf General Adult HPI General Chief complaint: Abdominal Pain Stated complaint: abd/back pain nausea watery bm rectal bleeding Time Seen by Provider: 08/25/24 20:43 Mode of Arrival: Ambulatory Source of Information: Patient Limitations: No Limitations Description of Symptoms (Recalled from ER Triage Doc. by RN): pt reports she has a hx of chronns diease, and she thinks she is having a flare up after her medicatiob dosage change. pt has low back pain that radiates to her lower abdomen and has been going on for the past two weeks. History of Present Illness HPI narrative: This patient is a 24-year-old female with a history of Crohn's disease on Skyrizi presenting to the emergency department for evaluation with concern for worsening generalized abdominal pain, back pain, tenesmus, and diarrhea. She notes that this has been going on for 2 weeks and she has been trying to ignore it, but things keep getting worse. Today, she notes the pain was severe especially when standing up. She notes it feels similar to prior flares but she is having more mucus and it feels a little bit worse. She does note some bright red blood per rectum but no significant amount of blood in the stools. She presents because she is well from the frequent amount of bowel movements no fevers, chills, nausea, vomiting, or other concerns. Related Data Home Medications ?Medication ?Instructions ?Recorded ?Confirmed levonorgestrel 17.5 mcg/24 hr (up intrauterine 08/21/23 07/16/24 to 5 yrs) 19.5mg intrauterine device (Kyleena) ondansetron 4 mg disintegrating 4 mg PO PRN 07/16/24 07/16/24 tablet risankizumab-rzaa 360 mg/2.4 mL mg SQ 07/16/24 07/16/24 (150 mg/mL) subcut wearable injector (Skyrizi) Previous Rx's ?Medication ?Instructions ?Recorded naproxen 500 mg tablet 500 mg PO BID #12 tabs 08/25/24 prednisone 20 mg tablet 40 mg (2 x 20 mg) PO DAILY 3 days 08/25/24 #6 tabs Allergies Allergy/AdvReac Type Severity Reaction Status Date / Time adalimumab [From Humira] Allergy Verified 07/16/24 13:31 [facility] Disclaimer: The information contained in this section may have been updated after the patient was seen, as this information can be updated by other users. Medical History Low back pain Pelvic pain Vaginal discharge History of pilonidal cyst Acute blood loss anemia Surgical History S/P primary low transverse Family History Other Cancer Diabetes Heart attack Thyroid disorder Social History Smoking Status: Never smoker alcohol intake: former substance use type: denies use current occupational status: unemployed Travel in the last 8 weeks: None Other Medical History Have you received the Flu Vaccine for this season: No Have you received the Pneumonia Vaccine: No ROS Obtained: Yes All systems reviewed & no additional complaints except as documented Physical Exam General General appearance: alert and in no apparent distress Head Head exam: atraumatic and normocephalic Eye Eye exam: Present normal appearance, PERRL and EOMI ENT ENT exam: Present normal exam, normal oropharynx, mucous membranes moist and normal external ear exam Neck Neck exam: Present normal inspection, full ROM and trachea midline; Absent tenderness Chest Chest inspection: Present normal inspection and symmetric chest wall rise; Absent tenderness Respiratory Respiratory exam: Present normal lung sounds bilaterally; Absent respiratory distress, wheezes, stridor or accessory muscle use Cardiovascular Cardiovascular exam: Present regular rate and normal rhythm Abdominal Exam Abdominal exam: Present soft and tenderness (Mild generalized); Absent distention or guarding Extremities Exam Extremities exam: Present normal inspection, full ROM and normal capillary refill; Absent tenderness or edema Back Exam Back exam: Present normal inspection and full ROM; Absent tenderness Neurological Exam Neurological exam: Present alert, oriented X3, CN II-XII intact and normal gait; Absent motor sensory deficit Psychiatric Psychiatric exam: Present normal affect and normal mood Skin Skin exam: Present warm and dry Medical Decision Making Medical Records Medical records reviewed: Yes I reviewed the patient's medical records. Screening: Per USPSTF and CDC recommendations, given the prevalence of disease in our region, it is our hospital?s policy to screen for HIV and viral Hepatitis for all patients aged 18 and over and those with ongoing risk factors. Aneudy Inquiry Pt receiving controlled substance: No Vital Signs: 08/25/24 21:06 08/26/24 00:04 Temperature 98.2 F 98.2 F Temperature Source Oral Oral Pulse Rate 73 Pulse Rate [Right] 83 Respiratory Rate 16 16 Blood Pressure 102/70 L Blood Pressure [Right Arm] 109/72 L Blood Pressure Mean [Right Arm] 84 02 Sat by Pulse Oximetry 99 Oxygen Delivery Method Room Air Room Air Lab Data Lab results reviewed: Yes I reviewed the patient's lab results. Lab Results 08/25/24 21:14: WBC 7.0, RBC 4.24, Hgb 13.0, Hct 38.1, MCV 89.8, MCH 30.6, MCHC 34.1, RDW 13.3, Plt Count 249, MPV 7.8, Neut % (Auto) 58.7, Lymph % (Auto) 28.5, [place] % (Auto) 4.4, Eos % (Auto) 7.0, Baso % (Auto) 1.4, Neut # (Auto) 4.1, Lymph # (Auto) 2.0, [place] # (Auto) 0.3, Eos # (Auto) 0.5 H, Baso # (Auto) 0.1, ESR 12, Sodium 141, Potassium 3.4 L, Chloride 104, Carbon Dioxide 28, Anion Gap 12.4, BUN 11, Creatinine 0.50 L, Estimated Creat Clear 191, Estimated GFR 150, Est GFR ( Amer) 182, Glucose 74, Calcium 9.7, Total Bilirubin 0.4, AST 27, ALT 22, Alkaline Phosphatase 50, C-Reactive Protein 2.9, Total Protein 7.3, Albumin 4.8, Globulin 2.5, Albumin/Globulin Ratio 1.9 H, Lipase 47, Serum HCG, Qual Negative, HIV 1&2 Antibody Rapid Nonreactive 08/25/24 22:00: Lactate 0.8 08/25/24 22:33: Urine Color Yellow, Urine Appearance Clear, Urine pH 8.0, Ur Specific [place] 1.020, Urine Protein Negative, Urine Glucose (UA) Negative, Urine Ketones Negative, Urine Blood Negative, Urine Nitrate Negative, Urine Bilirubin Negative, Urine Urobilinogen 0.2, Ur Leukocyte Esterase Negative, Urine WBC 3-5, Ur Squamous Epith Cells 5-10, Amorphous Sediment 1+, Urine Bacteria 2+ 08/25/24 21:14 08/25/24 21:14 Orders (Tests/Meds): ED MEDICATIONS Discontinued Medications Generic Name Dose Route Start Last Admin Trade Name Bonilla PRN Reason Stop Dose Admin Acetaminophen 1,000 mg 08/25/24 23:51 08/26/24 00:03 Acetaminophen 500mg Tab PO 08/25/24 23:52 1,000 mg ONCE ONE Administration Sodium Chloride 1,000 mls @ 999 mls/hr 08/25/24 20:52 08/25/24 21:15 Sod Chlor 0.9% 1000ml Bag IV 08/25/24 21:52 999 mls/hr .Q1H1M ONE Administration Iopamidol 75 ml 08/25/24 22:10 08/25/24 22:11 Iopamidol-370 (76%);100ml Bottle IV 08/25/24 22:11 75 ml ONCE ONE Administration Ketorolac Tromethamine 15 mg 08/25/24 20:52 08/25/24 21:15 Ketorolac 30mg/Ml Vial IV 08/25/24 20:53 15 mg ONCE ONE Administration Prednisone 40 mg 08/25/24 23:43 08/26/24 00:03 Prednisone 20mg Tab PO 08/25/24 23:44 40 mg ONCE ONE Administration Sodium Chloride 10 ml 08/25/24 22:10 08/25/24 22:10 Sodium Chloride 0.9% 10ml Syr (Rad Only) IV 08/25/24 22:11 10 ml ONCE ONE Administration ORDERS Category Date Time Status CT abdomen pelvis w con Stat Cat Scan 08/25/24 20:51 Completed CRP [C-Reactive Protein] Stat Lab 08/25/24 21:14 Completed Complete Blood Count Auto Diff Stat Lab 08/25/24 21:14 Completed Comprehensive Metabolic Panel Stat Lab 08/25/24 21:14 Completed ESR [Erythrocyte Sedimentation Rate] Stat Lab 08/25/24 21:14 Completed HIV (1&2) Antibody Rapid Stat Lab 08/25/24 21:14 Completed Hep C Ab with Reflex to RNA Stat Lab 08/25/24 21:14 Received Lactic Acid Stat Lab 08/25/24 22:00 Completed Lipase Stat Lab 08/25/24 21:14 Completed Serum [HCG Qualitative, Serum] Stat Lab 08/25/24 21:14 Completed UA [Urinalysis and Microscopic] Stat Lab 08/25/24 22:33 Completed Urine Culture Stat Micro 08/25/24 22:33 Received Medical Decision Narrative: In summary, this patient is a 24-year-old female presenting to the Emergency Department for evaluation of generalized abdominal pain, back pain, tenesmus, and increase in bowel movement. Differential diagnoses considered include but are not limited to Crohn's flare, fistula, ulcerative colitis, colitis, gastroenteritis. Ruling out the most morbid conditions drove assessment. It should be noted patient's history includes Crohn's disease which is not at goal therapy. This complicates all aspects of care by increasing patient's risk for morbidity. I reviewed patient's past medical records and noted previous ED evaluations for Crohn's flares in the past, last 1 being back in April. On exam, the patient is sitting upright in no acute distress. She has mild generalized abdominal tenderness but no rebound or guarding. Workup included labs as well as CT scan and ultrasound.. I independently interpreted CT scan prior to the radiologist read and noted no obvious significant inflammation of her intestines. Please see their read for final interpretation. Labs were obtained that demonstrated no significant leukocytosis, inflammatory markers are negative. On reassessment, patient had some improvement after administration of Toradol, but she continues to have pain. She notes this is consistent with prior Crohn's flare, however imaging and labs are reassuring. Will treat as Crohn's flare with prednisone and anti-inflammatories. Ultimately, feel that she is appropriate for discharge home based on reassuring workup and exam with close follow-up with GI as well as primary care. She expressed understanding and agreement. She was discharged with prescriptions for prednisone and naproxen. Strict return precautions were given prior to discharge. Critical Care Critical Care Time Critical Care Time: No
[2024-08-25 21:31] LABS: Alanine Aminotransferase 22 U/L (12-78); Albumin Level 4.8 g/dl (3.5-5.0); Albumin/Globulin Ratio 1.9 (1.1-1.8); Alkaline Phosphatase 50 U/L (38-126); Anion Gap 12.4 mEq/L (5-15); Aspartate Amino Transferase 27 U/L (14-36); Bilirubin,Total 0.4 mg/dl (0.2-1.3); Blood Urea Nitrogen 11 mg/dl (7-17); Calcium 9.7 mg/dl (8.4-10.2); Carbon Dioxide 28 mmol/L (22.0-30.0); Chloride 104 mmol/L (98-107); Creatinine Clearance Estimated 191 mL/min (50-200); Estimated Glomerular Filt Rate 150 ml/min (>60); GFR (African American) 182 ML/MIN (>60); Globulin 2.5 g/dL (1.3-3.2); Glucose 74 mg/dl (74-100); Lipase 47 U/L (23-300); Potassium 3.4 mmoL/L (3.5-5.1); Sodium 141 mmol/L (136-145); Total Protein,Serum 7.3 g/dl (6.3-8.2)
[2024-08-25 21:36] LABS: C-Reactive Protein 2.9 mg/L (0-4)
[2024-08-25 21:44] LABS: Erythrocyte Sedimentation Rate 12 mm/hr (0-20)
[2024-08-25 21:47] LABS: HCG Qualitative, Serum Negative (Negative)
--- NOTE | 2024-08-25 22:08 | PC.NURSE ---
pt taken to ct scan via wheelchair
[2024-08-25] MEDS: SODIUM CHLORIDE 0.9% 10ML SYR (RAD ONLY) 10 ML IV (22:10)
[2024-08-25] MEDS: IOPAMIDOL-370 (76%);100ML BOTTLE 75 ML IV (22:11)
[2024-08-25 22:26] LABS: Lactic Acid 0.8 mmol/L (0.7-2.1)
[2024-08-25 22:36] LABS: HIV (1&2) Antibody Rapid NONREACTIVE (NONREACTIVE)
[2024-08-25 22:39] LABS: Microscopic, Urine URINE MICROSCOPIC (MICROSCOPIC)
[2024-08-25 22:45] LABS: Appearance,Urine CLEAR (Clear); Bilirubin,Urine Negative (Negative); Blood, Urine Negative (Negative); Color,Urine YELLOW (Yellow); Glucose,Urine (UA) Negative (Negative); Ketones,Urine Negative (Negative); Leukocyte Esterase,Urine Negative (Negative); Nitrate,Urine Negative (Negative); Protein,Urine Negative (Negative); Urobilinogen,Urine 0.2 EU/dl (0.2)
[2024-08-25 22:56] LABS: Amorphous Sediment,Urine 1+ /lpf; Bacteria,Urine 2+ /lpf
[2024-08-26] MEDS: predniSONE 20MG TAB 40 MG PO (00:03)
[2024-08-26] MEDS: ACETAMINOPHEN 500MG TAB 1000 MG PO (00:03)
[2024-08-26 00:04] VITALS: BP 102/70; PULSE 73; RESP 16; TEMP 36.8; O2SAT 94
[2024-08-27 08:22] LABS: HCV Ab Non Reactive (Non Reactive)
== END 2024-08-26 00:05 | disposition home or self-care (01) ==
PROVIDERS: Emergency Provider Emergency Medicine; PCP Nurse Practitioner Family
DX: K50.90 Crohn's disease, unspecified, without complications (principal)
CPT/HCPCS: 74177; 80053; 81001; 83605; 83690; 84703; 85025; 85651; 86140; 86803; 87086; 87389; 96374; 99285; J1885; J7030; Q9967

== ENCOUNTER 2024-10-11 21:00 | Emergency (ER) | payer MEDICAID, SELFPAY ==
[2024-10-11 21:16] VITALS: BP 127/101; PULSE 88; RESP 16; TEMP 36.9; O2SAT 100; BMI 25.7
[2024-10-11 21:28] LABS: Urine Pregnancy, HCG Qual. Negative (Negative)
[2024-10-11 21:38] LABS: Microscopic, Urine URINE MICROSCOPIC (MICROSCOPIC)
[2024-10-11 21:40] LABS: Basophils # 0.1 K/mm3 (0-0.2); Basophils % 0.9 % (0.1-2.0); Eosinophils # 0.5 K/mm3 (0.0-0.4); Eosinophils % 6.6 % (0.1-12.0); Hematocrit 40.9 % (37.0-47.0); Hemoglobin 13.3 g/dL (12.2-16.2); Lymphocytes # 2.3 K/mm3 (0.7-4.5); Lymphocytes % 32.8 % (10-50); Mean Corpuscular HGB Conc 32.5 g/dL (31.8-35.4); Mean Corpuscular Hemoglobin 28.9 pg (27.0-31.2); Mean Corpuscular Volume 88.7 fl (81-99); Mean Platelet Volume 9.9 fl (7.4-10.4); Monocytes # 0.4 K/mm3 (0.1-1.0); Monocytes % 5.1 % (1.7-9.3); Neutrophils # 3.8 K/mm3 (1.8-7.8); Neutrophils % 54.5 % (37.0-80.0); Platelet Count 275 K/mm3 (142-424); Red Blood Count 4.61 M/mm3 (4.20-5.40); Red Cell Distribution Width 12.2 % (11.5-17.5); White Blood Count 6.9 K/mm3 (4.8-10.8)
[2024-10-11 21:42] LABS: Albumin Level 5.1 g/dl (3.5-5.0); Chloride 101 mmol/L (98-107); Sodium 138 mmol/L (136-145)
[2024-10-11 21:43] LABS: Potassium 3.7 mmoL/L (3.5-5.1)
[2024-10-11 21:44] LABS: Appearance,Urine CLEAR (Clear); Bilirubin,Urine Negative (Negative); Blood, Urine 3+ (Negative); Color,Urine YELLOW (Yellow); Glucose,Urine (UA) Negative (Negative); Ketones,Urine Negative (Negative); Leukocyte Esterase,Urine Negative (Negative); Nitrate,Urine Negative (Negative); PH,Urine 6.5 (5.0-8.5); Protein,Urine Negative (Negative); Specific Gravity, Urine >= 1.030 (1.005-1.030); Urobilinogen,Urine 0.2 EU/dl (0.2)
[2024-10-11 21:45] LABS: Alanine Aminotransferase 21 U/L (12-78); Albumin/Globulin Ratio 1.6 (1.1-1.8); Alkaline Phosphatase 72 U/L (38-126); Anion Gap 11.7 mEq/L (5-15); Aspartate Amino Transferase 29 U/L (14-36); Bilirubin,Total 0.3 mg/dl (0.2-1.3); Blood Urea Nitrogen 12 mg/dl (7-17); Carbon Dioxide 29 mmol/L (22.0-30.0); Creatinine Clearance Estimated 154 mL/min (50-200); Estimated Glomerular Filt Rate 122 ml/min (>60); GFR (African American) 147 ML/MIN (>60); Globulin 3.2 g/dL (1.3-3.2); Glucose 98 mg/dl (74-100); Total Protein,Serum 8.3 g/dl (6.3-8.2)
[2024-10-11 21:46] LABS: Calcium 10.8 mg/dl (8.4-10.2)
[2024-10-11 21:48] LABS: Activated Partial Thrombo Time 28.5 seconds (22.8-30.6); INR 0.94 (0.9-1.1); Prothrombin Time 10.6 seconds (10.1-12.5)
[2024-10-11 22:02] LABS: Bacteria,Urine Trace /lpf; RBC,Urine 20-50 #/hpf (0-3)
--- NOTE | 2024-10-11 22:04 | HMH.EDGENADL ---
Discharge Plan Disposition Patient Disposition: Home, Self-Care Chief Complaint: Abdominal Pain Prescriptions Prescriptions: No Action Kyleena 17.5 mcg/24 hrs (5 yrs) 19.5 mg intrauterine device intrauterine ondansetron 4 mg tablet,disintegrating 4 mg PO PRN Skyrizi 360 mg/2.4 mL (150 mg/mL) wearable injector SQ prednisone 20 mg tablet 40 mg PO DAILY 3 Days Qty: 6 0RF naproxen 500 mg tablet 500 mg PO BID Qty: 12 0RF Referrals Follow up/Referrals: Rubens Diane APRN [Primary Care Provider] - See instructions Activity Restrictions/Add. Instructions Additional Instructions/Restrictions: Call your family doctor to establish care for this visit to the emergency department and schedule follow-up within 48 hours to ensure improvement. If you have any worsening of your condition or any other concerning signs or symptoms, return to the emergency department or your primary care doctor for further evaluation. Clinical Impressions Clinical Impression: Menorrhagia Instructions Patient Instructions: DI for Acute Abdominal Pain Print Language Print Language: Sudanese Discharge ED Provider: Paul Antonio General Adult HPI General Chief complaint: Abdominal Pain Stated complaint: vaginal bleeding, abd and back pain Time Seen by Provider: 10/11/24 21:08 Mode of Arrival: Ambulatory Source of Information: Patient Limitations: No Limitations Description of Symptoms (Recalled from ER Triage Doc. by RN): Pt concerned she is and having abdominal pain History of Present Illness HPI narrative: Please note that above description of symptoms, in this electronic medical record under categorization of recalled from ER triage doctor by RN are reflective of an initial nursing assessment, however, is not reflective of my full history and physical exam that was personally taken and clarified. Consequentially, this preceding description of symptoms, which may include the patient's categorized chief complaint in the EMR, do not reflect my personal clinical impression, and the ultimate description of history of present illness and patient stated complaints should be deferred to this section of the note. Unless stated otherwise or congruent with this section of the note, additional signs, symptoms, or incongruence should be interpreted as inaccurate with my clinical impression. Related Data Home Medications ?Medication ?Instructions ?Recorded ?Confirmed levonorgestrel 17.5 mcg/24 hr (up intrauterine 08/21/23 07/16/24 to 5 yrs) 19.5mg intrauterine device (Kyleena) ondansetron 4 mg disintegrating 4 mg PO PRN 07/16/24 07/16/24 tablet risankizumab-rzaa 360 mg/2.4 mL mg SQ 07/16/24 07/16/24 (150 mg/mL) subcut wearable injector (Skyrizi) Previous Rx's ?Medication ?Instructions ?Recorded naproxen 500 mg tablet 500 mg PO BID #12 tabs 08/25/24 prednisone 20 mg tablet 40 mg (2 x 20 mg) PO DAILY 3 days 08/25/24 #6 tabs Allergies Allergy/AdvReac Type Severity Reaction Status Date / Time adalimumab (From Humira) Allergy Verified 07/16/24 13:31 [facility] Disclaimer: The information contained in this section may have been updated after the patient was seen, as this information can be updated by other users. Medical History Low back pain Pelvic pain Vaginal discharge History of pilonidal cyst Acute blood loss anemia Surgical History S/P primary low transverse Family History Other Cancer Diabetes Heart attack Thyroid disorder Social History Smoking Status: Never smoker alcohol intake: former substance use type: denies use current occupational status: unemployed Travel in the last 8 weeks: None Have you lived/traveled outside [place] in past 30 days?: No Contact w/someone who lives/traveled outside [place] past 30 days?: No Exposure to someone with infectious disease in past 14 days?: No Do you have a fever (greater than 100.4 F or 38 C)?: No Have you tested positive for COVID-19: No Exposed to someone with COVID-19 in past 14 days?: No Do you have a sore throat?: No Do you have a cough?: No Do you have any weakness?: No Do you have any diarrhea?: No Are you experiencing any unusual bleeding?: No Do you have any muscle aches/pain?: No Do you have any abdominal pain?: No Are you experiencing loss of taste or smell?: No Other Medical History Have you received the Flu Vaccine for this season: No Have you received the Pneumonia Vaccine: No ROS Obtained: Yes All systems reviewed & no additional complaints except as documented Physical Exam General General appearance: alert and anxious Head Head exam: atraumatic and normocephalic Eye Eye exam: Present normal appearance, PERRL and EOMI Neck Neck exam: Present normal inspection, full ROM and trachea midline Respiratory Respiratory exam: Absent respiratory distress, wheezes, stridor, accessory muscle use or prolonged expiratory phase Cardiovascular Cardiovascular exam: Present other (Pulses equal symmetric in upper and lower extremities) Abdominal Exam Abdominal exam: Present soft; Absent distention, tenderness, guarding, rebound, rigidity or pulsatile mass Extremities Exam Extremities exam: Absent edema Neurological Exam Neurological exam: Present alert, oriented X3 and CN II-XII intact; Absent motor sensory deficit Skin Skin exam: Present warm and dry; Absent diaphoresis or erythema Medical Decision Making Medical Records Medical records reviewed: Yes I reviewed the patient's medical records. Screening: Per USPSTF and CDC recommendations, given the prevalence of disease in our region, it is our hospital?s policy to screen for HIV and viral Hepatitis for all patients aged 18 and over and those with ongoing risk factors. Aneudy Inquiry Pt receiving controlled substance: No Aneudy was queried for this patient: No Vital Signs: 10/11/24 21:16 Temperature 98.4 F Temperature Source Oral Pulse Rate [Right Brachial] 88 Respiratory Rate 16 Blood Pressure [Right Arm] 127/101 H Blood Pressure Mean [Right Arm] 109 Blood Pressure Source [Right Arm] Automatic Cuff Blood Pressure Position [Right Arm] Sitting 02 Sat by Pulse Oximetry 100 Oxygen Delivery Method Room Air Lab Data Lab Results 10/11/24 20:12: Urine HCG, Qual Negative 10/11/24 21:10: WBC 6.9, RBC 4.61, Hgb 13.3, Hct 40.9, MCV 88.7, MCH 28.9, MCHC 32.5, RDW 12.2, Plt Count 275, MPV 9.9, Neut % (Auto) 54.5, Lymph % (Auto) 32.8, [place] % (Auto) 5.1, Eos % (Auto) 6.6, Baso % (Auto) 0.9, Neut # (Auto) 3.8, Lymph # (Auto) 2.3, [place] # (Auto) 0.4, Eos # (Auto) 0.5 H, Baso # (Auto) 0.1, PT 10.6, INR 0.94, APTT 28.5, Sodium 138, Potassium 3.7, Chloride 101, Carbon Dioxide 29, Anion Gap 11.7, BUN 12, Creatinine 0.60, Estimated Creat Clear 154, Estimated GFR 122, Est GFR ( Amer) 147, Glucose 98, Calcium 10.8 H, Total Bilirubin 0.3, AST 29, ALT 21, Alkaline Phosphatase 72, Total Protein 8.3 H, Albumin 5.1 H, Globulin 3.2, Albumin/Globulin Ratio 1.6, HCG, Quant < 2, Urine Color Yellow, Urine Appearance Clear, Urine pH 6.5, Ur Specific [place] >= 1.030, Urine Protein Negative, Urine Glucose (UA) Negative, Urine Ketones Negative, Urine Blood 3+ A, Urine Nitrate Negative, Urine Bilirubin Negative, Urine Urobilinogen 0.2, Ur Leukocyte Esterase Negative, Urine RBC 20-50, Urine WBC None, Ur Squamous Epith Cells 3-5, Urine Bacteria Trace, Blood Type O Positive, Antibody Screen Negative 10/11/24 21:10 10/11/24 21:10 Orders (Tests/Meds): ORDERS Category Date Time Status Type and Screen Stat BBK 10/11/24 21:10 Completed POCUS Point of Care (ER Only) Stat Exams 10/11/24 22:33 Ordered CBC w/Auto Diff [Complete Blood Count Auto Diff] Stat Lab 10/11/24 21:10 Completed CMP [Comprehensive Metabolic Panel] Stat Lab 10/11/24 21:10 Completed HCG,Quantitative Stat Lab 10/11/24 21:10 Completed PT INR [Prothrombin Time INR] Stat Lab 10/11/24 21:10 Completed PTT [Activated Partial Thrombo Time] Stat Lab 10/11/24 21:10 Completed UA [Urinalysis and Microscopic] Stat Lab 10/11/24 21:10 Completed Urine , HCG Qual. Stat Lab 10/11/24 20:12 Completed Medical Decision Narrative: 24-year-old female history of previous miscarriage presenting with concern for miscarriage. Patient states that she has had multiple negative test at home, but she is concerned they were false negatives. States that she had her IUD removed about 2 months prior to this and since that time, she had 1 normal period in August, however she started having a period about 5 days prior to this and has not stopped having clots and lower abdominal cramping since that time. States that she is concerned that she due to having a miscarriage or that she has blood that is not coming out the way that it should. No fevers or chills, nausea or vomiting, but lower abdominal cramping does go to both flanks. No urinary symptoms. Has not taken any medications for it because I am stubborn, and has not wanted to. History was obtained via conversation with patient. On arrival, patient hemodynamically stable, alert, oriented x4, appropriate, GCS 15, moving all extremities spontaneously, pupils equal and reactive to light. Full physical exam performed and significant for patient is very sweet, obviously anxious and concerned about was going on. She is nontachycardic, normotensive, neurologically intact and very well-appearing clinically. Speaking in full sentences. Abdomen is soft, nontender, nondistended and there is no flank tenderness. Overall unremarkable exam. Differential includes menorrhagia, fibroid, polyp, , miscarriage, among others. Patient placed on continuous cardiac monitoring and continuous pulse ox with initial blood pressure 127/100, heart rate 88, saturation 100% on room air. Patient was given p.o. challenge for symptomatic management and correction of underlying abnormalities. Bedside [id number] ultrasound performed and demonstrated no acute pelvic abnormalities. No IUP, no free fluid, no abnormalities. Thin endometrial stripe. workup independently interpreted and significant for nonactionable CBC, chemistry. Negative hCG serum. Urinalysis without concern for UTI. On reevaluation, patient still resting at baseline. I feel like this is likely service representative of menorrhagia in the setting of recently discontinuing IUD. Because patient at baseline without signs or symptoms of clinical decompensation, deemed appropriate for discharge. Results were relayed to patient who voiced understanding and were agreeable to outpatient management and follow up. I discussed my clinical impression with patient and answered all questions. At this time, the evidence for any other entities in the differential is insufficient to warrant any further testing or ED observation. This was explained as well. Advisory was given that persistent or worsening symptoms require further evaluation. I confirmed the understanding of this discussion. Gyroscopic Engineering Technician disclaimer Much of this encounter note is an electronic 3d specialist spoken language to printed text. Electronic 3d specialist of the spoken language may permit errors. Although I have reviewed the note, some errors may still exist. Procedures Limited Ultrasound Indication:: Limited OB ultrasound Indication: Menorrhagia Identified structures: -Uterus -Left adnexa -Right adnexa -Pouch of [place] Findings: Uterus: No definitive IUP, thin endometrial stripe Right adnexa: -Normal Left adnexa: -Normal [place]: -free fluid absent Impression: -IUP: No definitive IUP, thin endometrial stripe -Ectopic : Absent -Free fluid: Absent Images were saved to permanent archive The study was technically adequate [facility] Transabdominal: [id number] This study was performed by me, and I personally interpreted all images/videos. Based on my clinical judgement, these images were adequate and did not necessitate further imaging Critical Care Critical Care Time Critical Care Time: No
[2024-10-11 22:09] LABS: HCG,Quantitative < 2 mIU/ml (0-5.42)
[2024-10-11 23:10] VITALS: BP 109/71; PULSE 79; RESP 20; TEMP 36.8; O2SAT 98
== END 2024-10-11 23:13 | disposition home or self-care (01) ==
PROVIDERS: Emergency Provider Emergency Medicine; PCP Nurse Practitioner Family
DX: N92.0 Excessive and frequent menstruation with regular cycle (principal); R10.9 Unspecified abdominal pain; M54.9 Dorsalgia, unspecified; N93.9 Abnormal uterine and vaginal bleeding, unspecified
CPT/HCPCS: 80053; 81001; 81025; 84702; 85025; 85610; 85730; 86850; 99283

== ENCOUNTER 2024-12-22 14:57 | Outpatient (CLI) | payer MEDICAID, SELFPAY ==
[2024-12-22 16:31] LABS: HCG,Quantitative 873 mIU/ml (0-5.42)
[2024-12-23 08:54] LABS: Progesterone 9.4 ng/mL (.)
== END 2024-12-22 23:59 | disposition home or self-care (01) ==
LOC: LAB 14:58
PROVIDERS: PCP Nurse Practitioner Family; Visit Provider Obstetrics & Gynecology
DX: Z32.00 Encounter for pregnancy test, result unknown (principal)
CPT/HCPCS: 36415; 84144; 84702

== ENCOUNTER 2024-12-23 22:53 | Emergency (ER) | payer MEDICAID, SELFPAY ==
[2024-12-23 23:04] VITALS: BP 136/86; PULSE 102; RESP 20; TEMP 36.5; O2SAT 98; BMI 30.1
[2024-12-23 23:24] LABS: Basophils % 0.1 % (0.1-2.0); Hematocrit 40.8 % (37.0-47.0); Hemoglobin 13.5 g/dL (12.2-16.2); Lymphocytes # 0.9 K/mm3 (0.7-4.5); Lymphocytes % 11.2 % (10-50); Mean Corpuscular HGB Conc 33.1 g/dL (31.8-35.4); Mean Corpuscular Hemoglobin 29.1 pg (27.0-31.2); Mean Corpuscular Volume 87.9 fl (81-99); Monocytes # 0.2 K/mm3 (0.1-1.0); Monocytes % 1.9 % (1.7-9.3); Neutrophils # 6.7 K/mm3 (1.8-7.8); Neutrophils % 86.5 % (37.0-80.0); Platelet Count 291 K/mm3 (142-424); Red Blood Count 4.64 M/mm3 (4.20-5.40); Red Cell Distribution Width 12.5 % (11.5-17.5); White Blood Count 7.7 K/mm3 (4.8-10.8)
--- NOTE | 2024-12-23 23:29 | PC.NURSE ---
ultrasound technician paged
[2024-12-23 23:30] LABS: Albumin Level 5.7 g/dl (3.5-5.0); Chloride 102 mmol/L (98-107); Potassium 3.9 mmoL/L (3.5-5.1); Sodium 136 mmol/L (136-145)
[2024-12-23 23:31] VITALS: BP 222/131; PULSE 80; O2SAT 96
--- NOTE | 2024-12-23 23:32 | ED_ITS ---
Discharge Plan Disposition Patient Disposition: Home, Self-Care Condition: Good Prescriptions Prescriptions: No Action Kyleena 17.5 mcg/24 hrs (5 yrs) 19.5 mg intrauterine device intrauterine ondansetron 4 mg tablet,disintegrating 4 mg PO PRN Skyrizi 360 mg/2.4 mL (150 mg/mL) wearable injector SQ progesterone micronized 200 mg capsule 200 mg PO HS Qty: 30 2RF Rx Instructions: insert vaginally every night at bedtime prednisone 20 mg tablet 40 mg PO DAILY 3 Days Qty: 6 0RF naproxen 500 mg tablet 500 mg PO BID Qty: 12 0RF Referrals Follow up/Referrals: Rubens Diane APRN [Primary Care Provider] - See instructions Activity Restrictions/Add. Instructions Additional Instructions/Restrictions: You were evaluated in the ER and are believed to be appropriate for discharge at this time.? Please call your OB first thing in the morning and make an appointment for follow-up within 24 hours.? Drink plenty of fluids and continue taking your home medications as previously prescribed.? Follow-up closely with OB.? Return to the ER with any new, worsening, or otherwise concerning symptoms. Clinical Impressions Clinical Impression: Abdominal pain affecting Instructions Patient Instructions: DI for Acute Abdominal Pain Print Language Print Language: Venezuelan Discharge ED Provider: Juan Carlos Taylor Adult HPI General Chief complaint: Abdominal Pain Stated complaint: 5 wks , vaginal bleeding, pelvic pain Time Seen by Provider: 12/23/24 22:59 Mode of Arrival: Ambulatory Source of Information: Patient Description of Symptoms (Recalled from ER Triage Doc. by RN): pt reports lower abdominal that began yesterday and radiates to the flanks and back. pt reports she is approximately 5 weeks and 2 days by the first day of his last menstrual period. History of Present Illness HPI narrative: 24-year-old female with history of Crohn's currently on Skyrizi presents to the ER for complaints of low abdominal pain radiating to the bilateral low back. She reports she is approximately 5 weeks and 2 days based on her last menstrual period. She reports approximately 2 weeks ago she started having a typical Crohn's flare and took the medications prescribed to her for Crohn's flares. She states she is now concerned that that potentially could have compromised her since she does not know if she was at that time. She reports she took a test 4 days ago and it was positive instantly. She states she saw Dr. Heaton with [facility] and had labs done yesterday. She reports she has not yet had an ultrasound. Patient reports she is going to be following with [facility] after having a negative experience with her last delivery here. She is G3, P1 reporting 1 previous miscarriage. She denies vaginal bleeding or abnormal vaginal discharge. She was told based on her labs that were done yesterday that she has low progesterone and was started on a vaginal progesterone suppository which she used this evening. Patient reports that for the last week she has had mild to moderate low abdominal/pelvic pain that she attributed to early discomfort and cramping but it has continued to get worse and tonight was sharp and more painful than it had been. She reports she was told by her OB at [facility] that if her pain worsened she needed to be evaluated immediately. She knows she is high risk for both miscarriage and ectopic secondary to her known Crohn's disease. She states this is definitively different than her Crohn's flares and she is not having any changes in her bowel habits, no vomiting. She states she has had mild nausea which she attributes to early . She has had no fevers, chills, chest pain, difficulty breathing, dizziness, headache, or any other associated symptoms. She denies dysuria or hematuria. She has not taken anything for pain prior to arrival. She states she is resistant to take anything not prescribed to her hoping to avoid any risk to the baby. Related Data Home Medications ?Medication ?Instructions ?Recorded ?Confirmed levonorgestrel 17.5 mcg/24 hr (up intrauterine 08/21/23 07/16/24 to 5 yrs) 19.5mg intrauterine device (Kyleena) ondansetron 4 mg disintegrating 4 mg PO PRN 07/16/24 07/16/24 tablet risankizumab-rzaa 360 mg/2.4 mL mg SQ 07/16/24 07/16/24 (150 mg/mL) subcut wearable injector (Skyrizi) Previous Rx's ?Medication ?Instructions ?Recorded naproxen 500 mg tablet 500 mg PO BID #12 tabs 08/25/24 prednisone 20 mg tablet 40 mg (2 x 20 mg) PO DAILY 3 days 08/25/24 #6 tabs progesterone micronized 200 mg 200 mg PO HS #30 caps 12/23/24 capsule Allergies Allergy/AdvReac Type Severity Reaction Status Date / Time adalimumab (From Humira) Allergy Verified 07/16/24 13:31 [facility] Disclaimer: The information contained in this section may have been updated after the patient was seen, as this information can be updated by other users. Medical History Low back pain Pelvic pain Vaginal discharge History of pilonidal cyst Acute blood loss anemia Surgical History S/P primary low transverse Family History Other Cancer Diabetes Heart attack Thyroid disorder Social History Smoking Status: Never smoker alcohol intake: former substance use type: denies use current occupational status: unemployed Travel in the last 8 weeks: None Have you lived/traveled outside [place] in past 30 days?: No Contact w/someone who lives/traveled outside US past 30 days?: No Exposure to someone with infectious disease in past 14 days?: No Do you have a fever (greater than 100.4 F or 38 C)?: No Have you tested positive for COVID-19: No Exposed to someone with COVID-19 in past 14 days?: No Do you have a sore throat?: No Do you have a cough?: No Do you have any weakness?: No Do you have any diarrhea?: No Are you experiencing any unusual bleeding?: No Do you have any muscle aches/pain?: No Do you have any abdominal pain?: Yes Are you experiencing loss of taste or smell?: No Other Medical History Have you received the Flu Vaccine for this season: No Have you received the Pneumonia Vaccine: No ROS Obtained: Yes Systems reviewed as appropriate & no additional complaints except as documented per HPI Physical Exam General General appearance: alert and in no apparent distress Head Head exam: atraumatic and normocephalic Eye Eye exam: Present PERRL and EOMI ENT ENT exam: Present mucous membranes moist Neck Neck exam: Present normal inspection and full ROM Chest Chest inspection: Present symmetric chest wall rise Respiratory Respiratory exam: Present normal lung sounds bilaterally; Absent respiratory distress, wheezes or stridor Cardiovascular Cardiovascular exam: Present regular rate (Patient had been tachycardic during triage vitals but has regular rate and rhythm with heart rate in the low 80s during my exam) and normal rhythm Abdominal Exam Abdominal exam: Present soft and tenderness (Diffuse lower abdominal tenderness without localizing pain); Absent distention, guarding or rebound Extremities Exam Extremities exam: Present full ROM Back Exam Back exam: Present full ROM and paraspinal tenderness (Very low back lumbar paraspinal muscle tenderness); Absent CVA tenderness (R) or CVA tenderness (L) Neurological Exam Neurological exam: Present alert and oriented X3; Absent motor sensory deficit Psychiatric Psychiatric exam: Present normal affect and normal mood Skin Skin exam: Present warm and dry Medical Decision Making Medical Records Medical records reviewed: Yes I reviewed the patient's medical records. Screening: Per USPSTF and CDC recommendations, given the prevalence of disease in our region, it is our hospital?s policy to screen for HIV and viral Hepatitis for all patients aged 18 and over and those with ongoing risk factors. MR Comment: Quantitative hCG yesterday 873, progesterone 9.4 Aneudy Inquiry Pt receiving controlled substance: No Vital Signs: 12/23/24 23:04 12/23/24 23:31 12/23/24 23:42 Temperature 97.7 F Temperature Source Oral Pulse Rate 80 107 H Pulse Rate [Right] 102 H Respiratory Rate 20 Blood Pressure 222/131 H 126/82 Blood Pressure [Right Arm] 136/86 Blood Pressure Mean [Right Arm] 102 02 Sat by Pulse Oximetry 98 96 98 Oxygen Delivery Method Room Air 12/24/24 01:58 Temperature 98.4 F Temperature Source Pulse Rate 74 Pulse Rate [Right] Respiratory Rate 20 Blood Pressure 107/73 L Blood Pressure [Right Arm] Blood Pressure Mean [Right Arm] 02 Sat by Pulse Oximetry Oxygen Delivery Method Room Air Lab Data Lab Results 12/23/24 23:15: WBC 7.7, RBC 4.64, Hgb 13.5, Hct 40.8, MCV 87.9, MCH 29.1, MCHC 33.1, RDW 12.5, Plt Count 291, MPV 10.0, Neut % (Auto) 86.5 H, Lymph % (Auto) 11.2, Gonzales % (Auto) 1.9, Eos % (Auto) 0.0 L, Baso % (Auto) 0.1, Neut # (Auto) 6.7, Lymph # (Auto) 0.9, Gonzales # (Auto) 0.2, Eos # (Auto) 0.0, Baso # (Auto) 0.0, ESR 5, PT 10.9, INR 0.97, Sodium 136, Potassium 3.9, Chloride 102, Carbon Dioxide 23, Anion Gap 14.9, BUN 10, Creatinine 0.50 L, Estimated Creat Clear 209, Estimated GFR 150, Est GFR ( Amer) 182, Glucose 144 H, Calcium 10.6 H, Total Bilirubin 0.2, AST 26, ALT 28, Alkaline Phosphatase 71, C-Reactive Protein 2.2, Total Protein 8.7 H, Albumin 5.7 H, Globulin 3.0, Albumin/Globulin Ratio 1.9 H, HCG, Quant 1933 H, Blood Type O Positive 12/23/24 23:46: Urine Color Yellow, Urine Appearance Slightly cloudy, Urine pH 6.0, Ur Specific [place] >= 1.030, Urine Protein Negative, Urine Glucose (UA) Negative, Urine Ketones Trace, Urine Blood Negative, Urine Nitrate Negative, Urine Bilirubin Negative, Urine Urobilinogen 0.2, Ur Leukocyte Esterase Negative, Urine WBC 5-10, Ur Squamous Epith Cells 20-50, Urine Bacteria 3+ 12/23/24 23:15 12/23/24 23:15 Orders (Tests/Meds): ORDERS Category Date Time Status ABO/RH Type Stat BBK 12/23/24 23:15 Completed POCUS Point of Care (ER Only) Stat Exams 12/23/24 23:52 Completed CBC w/Auto Diff [Complete Blood Count Auto Diff] Stat Lab 12/23/24 23:15 Completed CMP [Comprehensive Metabolic Panel] Stat Lab 12/23/24 23:15 Completed CRP [C-Reactive Protein] Stat Lab 12/23/24 23:15 Completed ESR [Erythrocyte Sedimentation Rate] Stat Lab 12/23/24 23:15 Completed HCG,Quantitative Stat Lab 12/23/24 23:15 Completed PT INR [Prothrombin Time INR] Stat Lab 12/23/24 23:15 Completed Urinalysis and Microscopic Stat Lab 12/23/24 23:46 Completed Urine Culture Stat Micro 12/23/24 23:46 Received US OB transvaginal Stat Ultrasound 12/23/24 23:50 Completed Medical Decision Narrative: In summary, this 24-year-old female G3, P1 approximately 5 weeks 2 days by last menstrual period with history of Crohn's which may not be at goal therapy presents to the emergency department today with low abdominal pain. On initial evaluation patient is hemodynamically stable, afebrile, resting comfortably, she is normotensive and well-appearing with mild lower abdominal tenderness without rebound or guarding, no peritonitic findings, no CVA tenderness. Differential diagnosis includes but is not limited to early , consider the possibility of miscarriage or impending miscarriage, ectopic , heterotopic , urinary tract infection, pyelonephritis, I considered the possibility of Crohn's flare but suspect this is much less likely since patient is very familiar with her Crohn's and states this is much different than the type of pain she typically gets with her Crohn's since this is low abdominal pain and typically her Crohn's flares are in the upper abdomen. Based on these concerns, I ordered serum labs, blood type, urine studies, inflammatory markers, also ordered transvaginal ultrasound since patient has known positive quantitative hCG yesterday. Labs reviewed by me demonstrate no leukocytosis or anemia, normal platelets, PT/INR normal, CMP nonactionable, normal LFTs, nonactionable electrolytes. hCG elevating compared to prior now over 1900, more than doubled.? This is encouraging for actively growing .? Patient's UA was reviewed and does not demonstrate findings consistent with infection, there is some bacteria however the sample was contaminated with squamous cells and there is no blood or nitrates.? With patient being asymptomatic, will allow this to grow for culture rather than empirically treating at this time. Transvaginal ultrasound was personally interpreted by me and I appreciate an intrauterine saclike structure, I do not appreciate obvious ectopic .? Radiology read pending. Radiology read agrees that there is a 3.6 mm intrauterine saclike structure with suspected decidual reaction.? They do appreciate trace pelvic free fluid with associated 1.9 cm hemorrhagic right ovarian corpus luteal cyst.? Normal left ovary and no ovarian torsion.? See radiology read for full interpretation. Patient's inflammatory markers resulted and are []. ?With her symptoms and other findings clinically and on labs I do not believe this is an indicator towards Crohn's flare at this time.? She has close follow-up available with OB and GI so I am not going to intervene on these. On reassessment patient is resting comfortably and is very reassured by findings so far. ?Vitals remained stable.? She states she has been having a lot of anxiety about what is going on. ?I discussed this case with Dr. Palmer with OB including patient's vitals, labs, ultrasound findings.? He is reassured and recommended 24-hour outpatient follow-up with OB to recheck labs and reassess patient's condition. I reviewed these recommendations with the patient.? She is comfortable with this plan.? Patient was given instructions on close symptomatic monitoring and management, follow up instructions including to immediately follow-up with OB, and return precautions for the emergency department. Patient indicated understanding and was discharged in stable condition. ? Procedures Miscellaneous Procedure Procedure Performed: Limited OB ultrasound Indication: Positive home test, pelvic pain Identified structures: [-Uterus -Left adnexa -Right adnexa -Pouch of Brayden] Findings: Uterus: No definitive IUP FHR: Not able to be measured Right adnexa: Trace free fluid Left adnexa: Normal Cul de sac: Trace free fluid Impression: -IUP: Not identified - heart rate: Not measured -Ectopic : Not identified -Free fluid: Trace Images worsen to permanent archive The study was technically adequate CPT Transabdominal: 35795-97 This study was performed by me, and I personally interpreted all images/videos. Based on my clinical judgement, these images were adequate and did necessitate further imaging for further evaluation of fallopian tubes and uterus. Transvaginal ultrasound ordered.. Critical Care Critical Care Time Critical Care Time: No
[2024-12-23 23:33] LABS: Alanine Aminotransferase 28 U/L (12-78); Albumin/Globulin Ratio 1.9 (1.1-1.8); Alkaline Phosphatase 71 U/L (38-126); Anion Gap 14.9 mEq/L (5-15); Aspartate Amino Transferase 26 U/L (14-36); Bilirubin,Total 0.2 mg/dl (0.2-1.3); Blood Urea Nitrogen 10 mg/dl (7-17); Calcium 10.6 mg/dl (8.4-10.2); Carbon Dioxide 23 mmol/L (22.0-30.0); Creatinine Clearance Estimated 209 mL/min (50-200); Estimated Glomerular Filt Rate 150 ml/min (>60); GFR (African American) 182 ML/MIN (>60); Glucose 144 mg/dl (74-100); Total Protein,Serum 8.7 g/dl (6.3-8.2)
[2024-12-23 23:38] LABS: INR 0.97 (0.9-1.1); Prothrombin Time 10.9 seconds (10.1-12.5)
[2024-12-23 23:42] VITALS: BP 126/82; PULSE 107; O2SAT 98
[2024-12-23 23:50] LABS: Microscopic, Urine URINE MICROSCOPIC (MICROSCOPIC)
[2024-12-23 23:50] LABS: HCG,Quantitative 1933 mIU/ml (0-5.42)
--- NOTE | 2024-12-23 23:50 | US_ITS ---
PROCEDURE INFORMATION: Exam: US , Transvaginal and US Duplex Artery and Vein, Ovaries, Complete Exam date and time: 12/23/2024 11:54 PM Age: 24 years old Clinical indication: complicated by abdominal or pelvic pain; Lower; First trimester (<14 weeks 0 days); Gestational age or lmp: 11/16/24; ; Additional info: Pelvic pain 5+wks preg, high risk ectopic/miscarri LABS AND CLINICAL REPORTS: Last menstrual period start date: 11/16/2024 Gestational age (Established): 5 w 2 d Estimated due date (Established): 08/23/2025 TECHNIQUE: Imaging protocol: Real-time transvaginal obstetrical ultrasound of the maternal pelvis and a first trimester with image documentation. Transvaginal imaging was used for better evaluation of the fetus, adnexa, and/or cervix. Real-time duplex ultrasound scan of the arterial and venous flow of the ovaries with B-mode, color Doppler flow and spectral waveform analysis, Complete Duplex. Duplex exam was performed to evaluate for torsion and other vascular conditions. Total images: 785 COMPARISON: US TRANSVAGINAL 08/30/2023 1:59 PM FINDINGS: Other findings: Color and spectral Doppler flow is present both ovaries with arterial and venous waveforms. No torsion. GESTATION: Gestation: 3.6 mm intrauterine sac-like structure with suspected surrounding decidual reaction. No pole. No yolk sac. BIOMETRY: Gestational age (AUA): 4 w 6 d Estimated due date (AUA): 08/26/2025 Mean sac diameter: 3.6 mm MATERNAL: Uterus: Anteverted nonenlarged uterus. No myometrial mass. scarring. Right ovary/adnexa: Right ovary measuring 3.1 x 2.4 x 2.1 cm with volume of 8.4 cc. 1.9 cm hemorrhagic right ovarian corpus luteal cyst. Left ovary/adnexa: Left ovary measuring 2.2 x 1.7 x 1.2 cm with volume of 2.3 cm. Physiologic appearance. Intraperitoneal space: Trace free pelvic fluid. No adnexal mass. IMPRESSION: 1. 3.6 mm intrauterine sac-like structure. Suspected decidual reaction. Recommend correlation with serial beta HCG values and follow-up ultrasound to confirm viability. 2. Trace free pelvic fluid 3. 1.9 cm hemorrhagic right ovarian corpus luteal cyst. 4. Normal left ovary. 5. No ovarian torsion.
[2024-12-23 23:54] LABS: C-Reactive Protein 2.2 mg/L (0-4)
[2024-12-23 23:55] LABS: Erythrocyte Sedimentation Rate 5 mm/hr (0-20)
[2024-12-23 23:56] LABS: Appearance,Urine Slightly Cloudy (Clear); Color,Urine Yellow (Yellow); Glucose,Urine (UA) Negative (Negative); Protein,Urine Negative (Negative); Specific Gravity, Urine >= 1.030 (1.005-1.030)
[2024-12-23 23:57] LABS: Bilirubin,Urine Negative (Negative); Blood, Urine Negative (Negative); Ketones,Urine Trace (Negative); Leukocyte Esterase,Urine Negative (Negative); Nitrate,Urine Negative (Negative); Urobilinogen,Urine 0.2 EU/dl (0.2)
[2024-12-24 00:06] LABS: Bacteria,Urine 3+ /lpf; Squamous Epithelial Cell,Urine 20-50 #/hpf (0-5)
[2024-12-24 01:58] VITALS: BP 107/73; PULSE 74; RESP 20; TEMP 36.9; O2SAT 99
== END 2024-12-24 01:58 | disposition home or self-care (01) ==
LOC: ER 22:58
PROVIDERS: Emergency Provider Emergency Medicine; PCP Nurse Practitioner Family
DX: O26.899 Other specified pregnancy related conditions, unspecified trimester (principal); Z3A.01 Less than 8 weeks gestation of pregnancy
CPT/HCPCS: 76817; 80053; 81001; 84702; 85025; 85610; 85651; 86140; 86900; 86901; 87086; 99283

== ENCOUNTER 2024-12-25 10:24 | Outpatient (CLI) | payer MEDICAID, SELFPAY ==
[2024-12-25 11:25] LABS: HCG,Quantitative 4918 mIU/ml (0-5.42)
== END 2024-12-25 23:59 | disposition home or self-care (01) ==
LOC: LAB 10:25
PROVIDERS: PCP Nurse Practitioner Family; Visit Provider Obstetrics & Gynecology
DX: O26.899 Other specified pregnancy related conditions, unspecified trimester (principal); R10.9 Unspecified abdominal pain
CPT/HCPCS: 36415; 84702

== ENCOUNTER 2024-12-28 09:47 | Outpatient (CLI) | payer MEDICAID, SELFPAY ==
[2024-12-28 11:18] LABS: HCG,Quantitative 14711 mIU/ml (0-5.42)
== END 2024-12-28 23:59 | disposition home or self-care (01) ==
LOC: LAB 09:48
PROVIDERS: PCP Nurse Practitioner Family; Visit Provider Obstetrics & Gynecology
DX: O26.891 Other specified pregnancy related conditions, first trimester (principal); R10.9 Unspecified abdominal pain; Z3A.01 Less than 8 weeks gestation of pregnancy
CPT/HCPCS: 36415; 84702

== ENCOUNTER 2024-12-30 09:53 | Outpatient (CLI) | payer MEDICAID, SELFPAY ==
[2024-12-30 11:55] LABS: HCG,Quantitative 21160 mIU/ml (0-5.42)
== END 2024-12-30 23:59 | disposition home or self-care (01) ==
LOC: LAB 09:53
PROVIDERS: PCP Nurse Practitioner Family; Visit Provider Obstetrics & Gynecology
DX: R10.9 Unspecified abdominal pain (principal); Z3A.00 Weeks of gestation of pregnancy not specified
CPT/HCPCS: 36415; 84702

== ENCOUNTER 2025-06-24 15:15 | Outpatient (CLI) | payer MEDICAID, SELFPAY ==
--- OUTSIDE RECORDS SUMMARY | 2025-05-03 08:39 | XMS_ITS | Encounter Summary ---
Author Organization [facility] Address [address] [place] [id number] Care Team Providers Care Sports Physician Name Role Phone Anna Diane MD Primary Care Provider [phone] Reason for Referral * Diagnostic Imaging (Routine) - Closed Specialty Diagnoses / Procedures Referred By Nirajac t Referred To Contact Radiology Diagnoses Family history of congenital heart defect Lupus erythematosus, unspecified form Crohn's disease with complication, unspecified gastrointestinal tract location Marginal placenta previa Choroid plexus cyst of fetus affecting care of mother, antepartum, single or unspecified fetus Procedures [facility] [place] Brayden Garner MD [address] [place] [address] Phone: tel: fax: Referral ID Status Reason Start Date Expiration Date Visits Re quested Visits Authorized Closed 03/31/2025 06/30/2026 1 1 Reason for Visit * Diagnostic Imaging (Routine) - Closed Specialty Diagnoses / Procedures Referred By Contac t Referred To Contact Radiology Diagnoses Family history of congenital heart defect Lupus erythematosus, unspecified form Crohn's disease with complication, unspecified gastrointestinal tract location Marginal placenta previa Choroid plexus cyst of fetus affecting care of mother, antepartum, single or unspecified fetus Procedures [facility] Diagnostic [place] Brayden Garner MD [address] [place] [address] Phone: tel: fax: Referral ID Status Reason Start Date Expiration Date Visits Re quested Visits Authorized Closed 03/31/2025 06/30/2026 1 1 Encounter Details Date Type Department Care Team (Late st Contact Info) Description 05/03/2025 8:39 AM EDT - 05/03/2025 11:59 PM EDT Hospital Encounter [facility] US PER DIAG CTR [address] [place] [address] Brayden Garner MD [address] [facility] [address] [place] [address] Family history of congenital heart defect; Lupus erythematosus, unspecified form; Crohn's disease with complication, unspecified gastrointestinal tract location; Marginal placenta previa; Choroid plexus cyst of fetus affecting care of mother, antepartum, single or unspecified fetus Discharge Disposition: Home or Self Care Social History Tobacco Use Types Packs/Day Years Used Date Smoking Tobacco: Never Smokeless Tobacco: Never Alcohol Use Standard Drinks/Week Comments Not Currently 0 (1 standard drink = 0.6 oz pur e alcohol) occ Estimated Date of Delivery Comme nts Yes 08/23/2025 Based on last me nstrual period of 11/16/2024 (Exact Date) Sex and Gender Information Value Date Recorded Sex Assigned at Not on file Legal Sex Female 8:40 AM EDT Gender Identity Not on file Sexual Orientation Not on file documented as of this encounter Medications at Time of Discharge aspirin 81 MG chewable tabletIndications :Lupus erythematosus, unspecified form Chew 1 tablet 2 (Two) Times a Day. 60 tablet 2 04/13/2025 fluticasone (FLONASE) 50 MCG/ACT nasal spray Administer 2 sprays into the nostril(s) as directed by provider Daily. MV & Min w/FA-DHA ( Gummies) 0.18-25 MG chewable tablet Chew. Risankizumab-rzaa (Skyrizi) 360 MG/2.4ML solution cartridge Inject under the skin into the appropriate area as directed. documented as of this encounter Plan of Treatment Upcoming Encounters Date Type Department Care Team (Late Contact Info) Description 06/28/2025 1:15 PM EDT Office Visit [facility] MATERNAL MEDICINE [address] [facility] [address] [place] [address] 06/28/2025 1:15 PM EDT Appointment [facility] US PER DIAG CTR [address] [place] [address] 06/28/2025 2:10 PM EDT Routine [facility] OBGYN [address] [facility] [address] [place] [id number] Chrissie Fernández MD [address] [facility] [address] [place] [address] 08/16/2025 3:30 PM EST Pre-Admission Testing [facility] PREADMISSION T [address] [place] [address] 08/17/2025 7:30 AM EST Hospital Encounter [facility] LABOR DELIVERY [address] [place] [address] Chrissie Fernández MD [address] [address] 08/17/2025 7:30 AM EST - 08/17/2025 8:30 AM EST Surgery [facility] LABOR DELIVERY [address] [place] [address] Chrissie Fernández MD [address] [address] SECTION REPEAT Scheduled Procedures Name Priority Associated Diagnoses Date/Ti me SECTION REPEAT 01/2025 7:30 AM EST documented as of this encounter Procedures Procedure Name Priority Date/Time Associated Diagnosis Comments [facility] Routine 05/03/2025 9:34 AM EDT Family history of congenital heart defect Lupus erythematosus, unspecified form Crohn's disease with complication, unspecified gastrointestinal tract location Marginal placenta previa Choroid plexus cyst of fetus affecting care of mother, antepartum, single or unspecified fetus documented in this encounter Results * [facility] (05/03/2025 9:34 AM EDT) Anatomical Region Laterality Modality Ultrasound 05/03/2025 9:02 AM EDT Narrative 05/03/2025 9:44 AM EDT PAT NAME: BORIS DERAS [facility] REC#: [id number] DA: [id number] PAT GEND: F PAT TYPE: O EXAM CHAN: [id number] REF PHYS NORMAN GOMEZ Comparison Studies The findings of this study are compared to the prior ultrasound study dated 03/31/25 Patient Status Outpatient Indication ======== 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 Hx PTD 36 - preeclampsia. Maternal Crohn's disease. Possible Lupus diagnosis. Previous c/s x 1. Obesity BMI 32. Maternal Assessment Height 160 cm Height (ft) 5 ft Height (in) 3 in Weight 83 kg Weight (lb) 182 lb BMI 32.25 kg/m Method ======= Transabdominal ultrasound examination. View: Good view ========= Estes . Number of fetuses: 1 Dating ====== LMP on: 11/16/2024 GA by LMP 24 w + 0 d KATHLEEN by LMP: 08/23/2025 Ultrasound examination on: 05/03/2025 GA by U/S based upon: AC, BPD, Femur, HC GA by U/S 23 w + 3 d KATHLEEN by U/S: 08/27/2025 Method of dating: Restore dating from previous exam Previous dating: based on the LMP, selected on 03/31/2025 Agreed KATHLEEN of previous datin08/23/2025 Assigned: based on the LMP, selected on 03/31/2025 Assigned GA 24 w + 0 d Assigned KATHLEEN: 08/23/2025 length 280 d Biometry Standard BPD 56.0 mm 23w 1d 15% Hadlock OFD 77.9 mm 25w 3d 92% Mariam HC 215.6 mm 23w 4d 19% Hadlock Cerebellum tr 27.6 mm 24w 3d 79% Hill AC 184.4 mm 23w 2d 20% Hadlock Femur 42.5 mm 23w 6d 33% Hadlock Humerus 39.9 mm 24w 2d 48% Mariam HC / AC 1.17 EFW 602 g 23w 2d 22% Hadlock EFW (lb) 1 lb EFW (oz) 5 oz EFW by: Hadlock ([id number]) Extended Cav. septi pel. tr 5.0 mm Butt Presser 4.2 mm CM 7.6 mm 89% Nicolaides Nasal bone 7.9 mm Head / Face / Neck Cephalic index 0.72 2% Nicolaides Thorax / Lungs Thoracic circ 170.6 mm 50% [place] Thoracic area 23.2 cm ThC / AC 0.93 Heart / Great Vessels Cardiac axis 33 Cardiac circ 74.3 mm Cardiac area 4.3 cm CC / ThC 0.44 CA / Brittani 0.18 PA main 4.04 mm Ductus art. 4.38 mm 98% Beckett Rt PA branch 3.56 mm 91% Deshawn Lt PA branch 3.88 mm 97% Deshawn Ao asc 3.72 mm Ao isthmus 3.5 mm 41% Deshawn Ao desc 3.72 mm McGoon Index mod. 2.0 PA main / Ao asc 1.09 Ao isthmus / Ductus art. 0.80 IVC 2.68 mm SVC 2.52 mm Extremities / Bony Struc FL / BPD 0.76 FL / HC 0.20 FL / AC 0.23 Other Structures FHR 146 bpm General Evaluation Cardiac activity present. FHR 146 bpm. movements present. Presentation transverse. Placenta Placental site: posterior. Umbilical cord Cord vessels: 3 vessel cord. Insertion site: placental insertion: normal. Amniotic fluid Amount of AF: normal. MVP 4.9 cm. KALEE 16.2 cm. Q1 4.6 cm, Q2 4.1 cm, Q3 2.6 cm, Q4 4.9 cm. Anatomy Cranium: Normal Cavum septi pellucidi: Normal Cerebellum: Normal Cisterna magna: Normal Head / Neck Rt lateral ventricle: Normal Lt lateral ventricle: Normal Rt choroid plexus: Appears normal Lt choroid plexus: Appears normal Lips: Appear normal Profile: Appears normal Nose: Appears normal Face Palate: visualized Orbits: Normal Lens: Normal 4-chamber view: Appears normal RVOT view: visualized LVOT view: Appears normal Heart / Thorax Aortic arch view: Appears normal Ductal arch view: Appears normal SVC: Appears Normal IVC: Appears Normal 3-vessel view: Appears normal 8-kiwmhk-qflzqrs view: Appears normal Cardiac axis: Normal Cord insertion: Normal Stomach: Normal Bladder: Normal Wants to know gender: yes Echocardiogram 2D Echo (Qualitatively) 4-chamber view: Appears normal LVOT view: Appears normal RVOT view: visualized 3-vessel view: Appears normal 9-gjzndo-tbuwwxa view: Appears normal Aortic arch view: Appears normal Ductal arch view: Appears normal SVC: Appears Normal IVC: Appears Normal Cardiac axis: Normal Venous-atrial connections: normal size and morphology AV connections: normal alignment VA connections: normal size and morphology Pulmonary veins: normal size and morphology Right atrium: normal size and morphology Left atrium: normal size and morphology Atrial septum: normal size and morphology Foramen ovale: normal (in the central third/half, flap valve in left atrium) Right ventricle: normal size and morphology Left ventricle: normal size and morphology Ventricular septum: ventricular septum intact (apex to crux) Tricuspid valve: normal size and morphology Mitral valve: normal size and morphology Cross-over gr. arteries: anterior great artery (confirmed to be the pulmonary artery by its branching) which crosses the course of the proximal aorta, indicative of normal relationship of the great arteries Main PA: the main pulmonary artery can be seen bifurcating into the ductus arteriosus and the right pulmonary artery B and M-Mode Measurements Thoracic circ 170.6 mm 50% [place] Thoracic area 23.2 cm ThC / AC 0.93 Cardiac axis 33 Cardiac circ 74.3 mm Cardiac area 4.3 cm CC / ThC 0.44 CA / Brittani 0.18 RA length diast 7.43 mm RA width diast 9.49 mm RV width diast 9.04 mm 30% Beckett RV wall diast 3.02 mm 98% Beckett LA length diast 8.6 mm LA width diast 10.8 mm LV width diast 9.97 mm 49% Beckett LV wall diast 3.64 mm >99% Beckett IV Septum diast 3.81 mm >99% Beckett RV inlet 10.13 mm LV inlet 11.43 mm LVOT diam 4.7 mm LVOT area 17.0 mm TV annulus diast 8.6 mm MV annulus diast 9.9 mm MV annulus diast / TV annulus diast 1.15 PA main 4.04 mm Ductus art. 4.38 mm 98% Beckett Rt PA branch 3.56 mm 91% Deshawn Lt PA branch 3.88 mm 97% Deshawn Ao asc 3.72 mm Ao isthmus 3.5 mm 41% Deshawn Ao desc 3.72 mm McGoon Index mod. 2.0 PA main / Ao asc 1.09 Ao isthmus / Ductus art. 0.80 IVC 2.68 mm SVC 2.52 mm RV width diast Zscore (FL) -0.06 RV width diast Zscore (BPD) 0.55 RV width diast Zscore (GA) 0.16 RV width diast Zscore by: Beny LV width diast Zscore (FL) 0.93 LV width diast Zscore (BPD) 1.35 LV width diast Zscore (GA) 1.05 LV width diast Zscore by: Beny RV inlet Zscore (FL) -3.35 RV inlet Zscore (BPD) -2.51 RV inlet Zscore (GA) -2.89 RV inlet Zscore by: Beny LV inlet Zscore (FL) -3.79 LV inlet Zscore (BPD) -2.81 LV inlet Zscore (GA) -3.10 LV inlet Zscore by: Beny RV area Zscore by: Beny LV area Zscore by: Beny TV annulus diast Zscore (FL) 1.06 TV annulus diast Zscore (BPD) 1.67 TV annulus diast Zscore (GA) 1.31 TV annulus diast Zscore by: Beny MV annulus diast Zscore (FL) 2.60 MV annulus diast Zscore (BPD) 3.06 MV annulus diast Zscore (GA) 2.62 MV annulus diast Zscore by: Beny PV annulus syst Zscore by: Beny AoV annulus syst Z-score by: Beny PA main Zscore (FL) -1.24 PA main Zscore (BPD) -0.71 PA main Zscore (GA) -1.03 PA main Zscore by: Beny Ductus arteriosus Zscore (FL) 1.96 Ductus arteriosus Zscore (BPD) 2.20 Ductus arteriosus Zscore (GA) 2.07 Ductus arteriosus Zscore by: Beny Rt PA branch Zscore (FL) 1.87 Rt PA branch Zscore (BPD) 2.34 Rt PA branch Zscore (GA) 2.03 Rt PA branch Zscore by: Beny Lt PA branch Zscore (FL) 2.61 Lt PA branch Zscore (BPD) 3.03 Lt PA branch Zscore (GA) 2.70 Lt PA branch Zscore by: Beny Ao asc Zscore (FL) -1.19 Ao asc Zscore (BPD) -0.46 Ao asc Zscore (GA) -0.83 Ao asc Zscore by: Beny Ao isthmus Zscore (FL) 2.14 Ao isthmus Zscore (BPD) 2.18 Ao isthmus Zscore (GA) 1.93 Ao isthmus Zscore (EFW) 2.57 Ao isthmus Zscore by: Crispin Ao desc Zscore (FL) 0.14 Ao desc Zscore (BPD) 0.84 Ao desc Zscore (GA) 0.44 Ao desc Zscore by: Beny IVC Zscore (FL) -0.13 IVC Zscore (BPD) 0.35 IVC Zscore (GA) 0.03 IVC Zscore by: Beny Intracardial Spectral Doppler TV E-wave -35.22 cm/s TV A-wave -52.82 cm/s TV E / A 0.67 54% Hecher MV E-wave -28.69 cm/s MV A-wave -44.35 cm/s MV E / A 0.65 61% Hecher Postcardial Spectral Doppler Umbilical A PI 1.13 52% Rico Umbilical A RI 0.71 50% Rico Umbilical A PS -34.84 cm/s Umbilical A ED -9.95 cm/s Umbilical A TAmax -22.10 cm/s Umbilical A MD -9.43 cm/s Umbilical A S / D 3.50 51% Rico Umbilical A HR 140 bpm Rt MCA PS 24.56 cm/s MoM 0.80 Speckle Tracking Device/Procedure: Transabdominal ultrasound examination Doppler Arterial Umbilical A PI 1.13 52% Rico Umbilical A RI 0.71 50% Rico Umbilical A PS -34.84 cm/s Umbilical A ED -9.95 cm/s Umbilical A TAmax -22.10 cm/s Umbilical A MD -9.43 cm/s Umbilical A S / D 3.50 51% Rico Umbilical A HR 140 bpm Rt MCA PS 24.56 cm/s MoM 0.80 Maternal Structures Uterus / Cervix Cervix: Visualized Approach: Transabdominal Cervical length 54.7 mm Consultation / Office Visit Office note to follow Impression Today's exam reveals a SIUP in transverse presentation with biometry consistent with dates. Limited anatomic survey appears normal. Normal 4-chamber cardiac view appears normal. Normal right and left ventricular outflow tracts. Normal ductal and aortic arch views. The foramen ovale is patent. The cardiac axis is normal. There is no evidence of a arrhythmia. There is no evidence of a ventricular septal defect by color-flow Doppler. No pleural or pericardial effusion. See detailed echocardiogram parameters as above. The KALEE is normal. Recommendation 32 week growth ultrasound Coding ======= Description: 65836-09 Follow Up Ultrasound Description: 68568-84 Echo 2D, heart - initial Description: 85791-74 Doppler echo color flow Valve Repairer Reclamation: RT All Seo , [facility] Physician: Brandan Taylor MD, FACOG Electronically signed by: Brandan Taylor MD, FACOG at: 09:44 Procedure Note Brandan Taylor MD - 05/03/2025 PAT NAME: BORIS DERAS [facility] REC#: [id number] DA: 2000 PAT GEND: F PAT TYPE: O EXAM CHAN: [id number] REF PHYS NORMAN GOMEZ Comparison Studies The findings of this study are compared to the prior ultrasound studydated 03/31/25 Patient Status Outpatient Indication ======== 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 Hx PTD 36 - preeclampsia. Maternal Crohn's disease. Possible Lupusdiagnosis. Previous c/s x 1. Obesity BMI 32. Maternal Assessment Eazlgs814 cm Height (ft)5 ft Height (in)3 in Zqzgrx79 kg Weight (lb)182 lb BMI32.25 kg/m Method ======= Transabdominal ultrasound examination. View: Good view ========= Estes . Number of fetuses: 1 Dating ====== LMP on:11/16/2024 GA by LMP24 w + 0 d KATHLEEN by LMP:08/23/2025 Ultrasound examination on:05/03/2025 GA by U/S based upon:AC, BPD, Femur, HC GA by U/S23 w + 3 d KATHLEEN by U/S:08/27/2025 Method of dating:Restore dating from previous exam Previous dating:based on the LMP, selected on 03/31/2025 Agreed KATHLEEN of previous datin08/23/2025 Assigned:based on the LMP, selected on 03/31/2025 Assigned GA24 w + 0 d Assigned KATHLEEN:08/23/2025 [id number] d Biometry Standard BPD56.0 mm 23w 1d 15% Hadlock OFD77.9 mm 25w 3d 92% Mariam HC215.6 mm 23w 4d 19% Hadlock Cerebellum tr27.6 mm 24w 3d 79% Hill AC184.4 mm 23w 2d 20% Hadlock Femur42.5 mm 23w 6d 33% Hadlock Vrpfvct16.9 mm 24w 2d 48% Mariam HC / AC1.17 TTC951 g 23w 2d 22% Hadlock EFW (lb)1 lb EFW (oz)5 oz EFW by:Hadlock ([id number]) Extended Cav. septi pel. tr5.0 mm Vp4.2 mm CM7.6 mm 89% Nicolaides Nasal bone7.9 mm Head / Face / Neck Cephalic index0.72 2% Nicolaides Thorax / Lungs Thoracic uwqx755.6 mm 50% [place] Thoracic area23.2 cm ThC / AC0.93 Heart / Great Vessels Cardiac axis33 Cardiac circ74.3 mm Cardiac area4.3 cm CC / ThC0.44 CA / ThA0.18 PA main4.04 mm Ductus art.4.38 mm 98% Beckett Rt PA branch3.56 mm 91% Deshawn Lt PA branch3.88 mm 97% Deshawn Ao asc3.72 mm Ao isthmus3.5 mm 41% Deshawn Ao desc3.72 mm McGoon Index mod.2.0 PA main / Ao asc1.09 Ao isthmus / Ductus art.0.80 IVC2.68 mm SVC2.52 mm Extremities / Bony Struc FL / BPD0.76 FL / HC0.20 FL / AC0.23 Other Structures OQG079 bpm General Evaluation Cardiac activity present. FHR 146 bpm. movements present. Presentation transverse. Placenta Placental site: posterior. Umbilical cord Cord vessels: 3 vessel cord. Insertion site: placentalinsertion: normal. Amniotic fluid Amount of AF: normal. MVP 4.9 cm. KALEE 16.2 cm. Q1 4.6 cm,Q2 4.1 cm, Q3 2.6 cm, Q4 4.9 cm. Anatomy Cranium:Normal Cavum septi pellucidi:Normal Cerebellum:Normal Cisterna magna:Normal Head / Neck Rt lateral ventricle:Normal Lt lateral ventricle:Normal Rt choroid plexus:Appears normal Lt choroid plexus:Appears normal Lips:Appear normal Profile:Appears normal Nose:Appears normal Face Palate:visualized Orbits:Normal Lens:Normal 4-chamber view:Appears normal RVOT view:visualized LVOT view:Appears normal Heart / Thorax Aortic arch view:Appears normal Ductal arch view:Appears normal SVC:Appears Normal IVC:Appears Normal 3-vessel view:Appears normal 0-tffdrc-ttcxrgt view:Appears normal Cardiac axis:Normal Cord insertion:Normal Stomach:Normal Bladder:Normal Wants to know gender:yes Echocardiogram 2D Echo (Qualitatively) 4-chamber view:Appears normal LVOT view:Appears normal RVOT view:visualized 3-vessel view:Appears normal 2-krdhry-bffrjez view:Appears normal Aortic arch view:Appears normal Ductal arch view:Appears normal SVC:Appears Normal IVC:Appears Normal Cardiac axis:Normal Venous-atrial connections:normal size and morphology AV connections:normal alignment VA connections:normal size and morphology Pulmonary veins:normal size and morphology Right atrium:normal size and morphology Left atrium:normal size and morphology Atrial septum:normal size and morphology Foramen ovale:normal (in the central third/half, flap valve in leftatrium) Right ventricle:normal size and morphology Left ventricle:normal size and morphology Ventricular septum:ventricular septum intact (apex to crux) Tricuspid valve:normal size and morphology Mitral valve:normal size and morphology Cross-over gr. arteries:anterior great artery (confirmed to be thepulmonary artery by its branching) which crosses the course of theproximal aorta, indicative of normal relationship of the great arteries Main PA:the main pulmonary artery can be seen bifurcating into the ductusarteriosus and the right pulmonary artery B and M-Mode Measurements Thoracic acwm843.6 mm 50% [place] Thoracic area23.2 cm ThC / AC0.93 Cardiac axis33 Cardiac circ74.3 mm Cardiac area4.3 cm CC / ThC0.44 CA / ThA0.18 RA length diast7.43 mm RA width diast9.49 mm RV width diast9.04 mm 30% Beckett RV wall diast3.02 mm 98% Beckett LA length diast8.6 mm LA width diast10.8 mm LV width diast9.97 mm 49% Beckett LV wall diast3.64 mm >99% Beckett IV Septum diast3.81 mm >99% Beckett RV inlet10.13 mm LV inlet11.43 mm LVOT diam4.7 mm LVOT area17.0 mm TV annulus diast8.6 mm MV annulus diast9.9 mm MV annulus diast / TV annulus diast1.15 PA main4.04 mm Ductus art.4.38 mm 98% Beckett Rt PA branch3.56 mm 91% Deshawn Lt PA branch3.88 mm 97% Deshawn Ao asc3.72 mm Ao isthmus3.5 mm 41% Deshawn Ao desc3.72 mm McGoon Index mod.2.0 PA main / Ao asc1.09 Ao isthmus / Ductus art.0.80 IVC2.68 mm SVC2.52 mm RV width diast Zscore (FL)-0.06 RV width diast Zscore (BPD)0.55 RV width diast Zscore (GA)0.16 RV width diast Zscore by:Beny LV width diast Zscore (FL)0.93 LV width diast Zscore (BPD)1.35 LV width diast Zscore (GA)1.05 LV width diast Zscore by:Beny RV inlet Zscore (FL)-3.35 RV inlet Zscore (BPD)-2.51 RV inlet Zscore (GA)-2.89 RV inlet Zscore by:Beny LV inlet Zscore (FL)-3.79 LV inlet Zscore (BPD)-2.81 LV inlet Zscore (GA)-3.10 LV inlet Zscore by:Beny RV area Zscore by:Beny LV area Zscore by:Beny TV annulus diast Zscore (FL)1.06 TV annulus diast Zscore (BPD)1.67 TV annulus diast Zscore (GA)1.31 TV annulus diast Zscore by:Beny MV annulus diast Zscore (FL)2.60 MV annulus diast Zscore (BPD)3.06 MV annulus diast Zscore (GA)2.62 MV annulus diast Zscore by:Beny PV annulus syst Zscore by:Beny AoV annulus syst Z-score by:Beny PA main Zscore (FL)-1.24 PA main Zscore (BPD)-0.71 PA main Zscore (GA)-1.03 PA main Zscore by:Beny Ductus arteriosus Zscore (FL)1.96 Ductus arteriosus Zscore (BPD)2.20 Ductus arteriosus Zscore (GA)2.07 Ductus arteriosus Zscore by:Beny Rt PA branch Zscore (FL)1.87 Rt PA branch Zscore (BPD)2.34 Rt PA branch Zscore (GA)2.03 Rt PA branch Zscore by:Beny Lt PA branch Zscore (FL)2.61 Lt PA branch Zscore (BPD)3.03 Lt PA branch Zscore (GA)2.70 Lt PA branch Zscore by:Beny Ao asc Zscore (FL)-1.19 Ao asc Zscore (BPD)-0.46 Ao asc Zscore (GA)-0.83 Ao asc Zscore by:Beny Ao isthmus Zscore (FL)2.14 Ao isthmus Zscore (BPD)2.18 Ao isthmus Zscore (GA)1.93 Ao isthmus Zscore (EFW)2.57 Ao isthmus Zscore by:Crispin Ao desc Zscore (FL)0.14 Ao desc Zscore (BPD)0.84 Ao desc Zscore (GA)0.44 Ao desc Zscore by:Beny IVC Zscore (FL)-0.13 IVC Zscore (BPD)0.35 IVC Zscore (GA)0.03 IVC Zscore by:Beny Intracardial Spectral Doppler TV E-wave-35.22 cm/s TV A-wave-52.82 cm/s TV E / A0.67 54% Hecher MV E-wave-28.69 cm/s MV A-wave-44.35 cm/s MV E / A0.65 61% Hecher Postcardial Spectral Doppler Umbilical A PI1.13 52% Rico Umbilical A RI0.71 50% Rico Umbilical A PS-34.84 cm/s Umbilical A ED-9.95 cm/s Umbilical A TAmax-22.10 cm/s Umbilical A MD-9.43 cm/s Umbilical A S / D3.50 51% Rico Umbilical A HR140 bpm Rt MCA PS24.56 cm/s MoM0.80 Speckle Tracking Device/Procedure:Transabdominal ultrasound examination Doppler Arterial Umbilical A PI1.13 52% Rico Umbilical A RI0.71 50% Rico Umbilical A PS-34.84 cm/s Umbilical A ED-9.95 cm/s Umbilical A TAmax-22.10 cm/s Umbilical A MD-9.43 cm/s Umbilical A S / D3.50 51% Rico Umbilical A HR140 bpm Rt MCA PS24.56 cm/s MoM0.80 Maternal Structures Uterus / Cervix Cervix:Visualized Approach:Transabdominal Cervical katpcd22.7 mm Consultation / Office Visit Office note to follow Impression Today's exam reveals a SIUP in transverse presentation with biometryconsistent with dates. Limited anatomic survey appears normal.Normal 4-chamber cardiac view appears normal. Normal right and left ventricular outflow tracts.Normal ductal and aortic arch views. The foramen ovale is patent. Thecardiac axis is normal. There is no evidence of a arrhythmia. There is no evidence of aventricular septal defect by color-flow Doppler. No pleural or pericardialeffusion. See detailed echocardiogram parameters as above. The KALEE is normal. Recommendation 32 week growth ultrasound Coding ======= Description:95709-96 Follow Up Ultrasound Description:75433-21 Echo 2D, heart - initial Description:34366-12 Doppler echo color flow Valve Repairer Reclamation: RT All Seo , [facility] Physician: Brandan Taylor MD, FACOG Electronically signed by: Brandan Taylor MD, FACOG at: 09:44 us Brayden Garner MD IMG US ORDERABLES Final Re sult documented in this encounter Visit Diagnoses Diagnosis Family history of congenital heart defect Lupus erythematosus, unspecified form Crohn's disease with complication, unspecified gastrointestinal tract location Marginal placenta previa Hemorrhage from placenta previa, unspecified as to episode of care Choroid plexus cyst of fetus affecting care of mother, antepartum, single or unspecified fetus documented in this encounter Care Teams Sports Physician Relationship Specialty Start Date End Date Anna Diane MD [address] [place] [address] TUCKER Singh [id number] PCP - General Nurse Practitioner 12/21/24 documented as of this encounter
--- OUTSIDE RECORDS SUMMARY | 2025-05-03 09:15 | XMS_ITS | Encounter Summary ---
Author Organization [facility] Address [address] [place] [id number] Care Team Providers Care Occupational Health Coordinator Name Role Phone Anna Diane MD Primary Care Provider [phone] Reason for Referral * Diagnostic Imaging (Routine) - Authorized Specialty Diagnoses / Procedures Referred By Contac t Referred To Contact Radiology Diagnoses Family history of congenital heart defect Procedures [facility] Brandan Taylor MD [address] [facility] [address] [place] [address] Phone: tel: fax: Referral ID Status Reason Start Date Expiration Date V isits Requested Visits Authorized [id number] Authorized 05/03/2025 08/02/2026 1 1 Reason for Visit * Reason Comments previous child with CHD Encounter Details Date Type Department Care Team (Late st Contact Info) Description 05/03/2025 9:15 AM EDT Office Visit [facility] [address] [place] [address] Brandan Taylor MD [address] [facility] [address] [place] [id number] Family history of congenital heart defect (Primary Dx) Social History Tobacco Use Types Packs/Day Years [...] on file documented as of this encounter Last Filed Vital Signs Vital Sign Reading Time Taken Comments Blood Pressure 112/70 05/03/2025 8:47 AM EDT Pulse - - Temperature - - Respiratory Rate - - Oxygen Saturation - - Inhaled Oxygen Concentration - - Weight 82.6 kg (182 lb) 05/03/2025 8:47 AM EDT Height - - Body Mass Index 32.24 01/01/2025 11:33 AM EDT documented in this encounter Progress Notes * Brandan Taylor MD - 05/03/2025 9:23 AM EDTAssociated Problem(s): Family history of congenital heart defect Patient presents for echo secondary to 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 We discussed the limitations of echo including diagnosing valvular abnormalities and small VSDs. Today's echo overall appears normal. Plan for repeat evaluation at 32 weeks. * Surekha Lindsey RN - 05/03/2025 9:15 AM EDT Pt denies complaints. Sees OB today. * Brandan Taylor MD - 05/03/2025 9:15 AM EDT Maternal/ Medicine Consult Note Date: 05/03/2025 Name: Boris Deras : 2000 Referring Provider: Jackeline Cote APRN Chief Complaint previous child with CHD Subjective History of Present Illness: Boris Deras is a 25 y.o. 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 KATHLEEN: Estimated Date of Delivery: 08/23/25 ROS: Otherwise Noted in HPI Current Outpatient Medications: aspirin 81 MG chewable tablet, Chew 1 tablet 2 (Two) Times a Day., Disp: 60 tablet, Rfl: 2 fluticasone (FLONASE) 50 MCG/ACT nasal spray, Administer 2 sprays into the nostril(s) as directed by provider Daily., Disp: , Rfl: MV & Min w/FA-DHA ( Gummies) 0.18-25 MG chewable tablet, Chew., Disp: , Rfl: Risankizumab-rzaa (Skyrizi) 360 MG/2.4ML solution cartridge, Inject under the skin into the appropriate area as directed., Disp: , Rfl: Objective Vital Signs BP 112/70 Wt 82.6 kg (182 lb) LMP 11/16/2024 (Exact Date) Estimated body mass index is 32.24 kg/m?? as calculated from the following: Height as of 01/01/25: 160 cm (63 ). Weight as of this encounter: 82.6 kg (182 lb). Ultrasound Impression: See Viewpoint Assessment and Plan Boris Deras is a 25 y.o. 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 Diagnoses and all orders for this visit: 1. 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 We discussed the limitations of echo including diagnosing valvular abnormalities and small VSDs. Today's echo overall appears normal. Plan for repeat evaluation at 32 weeks. Follow Up 8 weeks I spent 10 minutes caring for the patient on the day of service. This included: obtaining or reviewing a separately obtained medical history, reviewing patient records, performing a medically appropriate exam and/or evaluation, counseling or educating the patient/family/caregiver, ordering medications, labs, and/or procedures and documenting such in the medical record. This does not include time spent on review and interpretation of other tests such as ultrasound or the performance of other procedures such as amniocentesis or CVS. Brandan Taylor MD, FACOG Maternal Medicine, [facility] documented in this encounter Plan of Treatment Upcoming Encounters Date Type Department Care Team (Late st Contact Info) Description 06/28/2025 1:15 PM EDT Office Visit [facility] [address] [facility] [address] [place] [phone] 06/28/2025 1:15 PM EDT Appointment [facility] US PER DIAG CTR [address] [place] [address] 06/28/2025 2:10 PM EDT Routine [facility] [address] [address] Chrissie Fernández MD [address] [facility] [address] 08/16/2025 3:30 PM EST Pre-Admission Testing [facility] PREADMISSION T [address] [place] [address] 08/17/2025 7:30 AM EST Hospital Encounter [facility] LABOR DELIVERY [address] [place] [address] Chrissie Fernández MD [address] [address] 08/17/2025 7:30 AM EST - 08/17/2025 8:30 AM EST Surgery [facility] LABOR DELIVERY [address] [facility] [address] Chrissie Fernández MD [address] [address] SECTION REPEAT Scheduled Orders Name Type Priority Associated Diagnoses Orde r Schedule [facility] Imaging Routine Family history of congenital heart defect Expected: 05/08/2025 (Approximate), Expires: 05/03/2026 Scheduled Procedures Name Priority Associated Diagnoses Date/Ti me SECTION REPEAT 01/2025 7:30 AM EST documented as of this encounter Visit Diagnoses Diagnosis Family history of congenital heart defect- Primary documented in this encounter Care Teams Occupational Health Coordinator Relationship Specialty Start Date End Date Anna Diane MD [address] [place] [address] PCP - General Nurse Practitioner 12/21/24 documented as of this encounter
--- OUTSIDE RECORDS SUMMARY | 2025-05-03 10:10 | XMS_ITS | Encounter Summary ---
Author Organization [facility] Address [address] [place] [phone] Care Team Providers Care Retail Associate Name Role Phone Anna Diane MD Primary Care Provider Reason for Visit * Reason Comments Routine Visit Encounter Details Date Type Department Care Team (Late st Contact Info) Description 05/03/2025 10:10 AM EDT Routine [facility] OBGYN [address] [address] Chrissie Fernández MD [address] [place] [address] [place]: 24w0d Social History Tobacco Use Types Packs/Day Years [...] Sign Reading Time Taken Comments Blood Pressure 122/64 05/03/2025 10:59 AM EDT Pulse - - Temperature - - Respiratory Rate - - Oxygen Saturation - - Inhaled Oxygen Concentration - - Weight 82.6 kg (182 lb) 05/03/2025 10:59 AM EDT Height - - Body Mass Index 32.24 01/01/2025 11:33 AM EDT documented in this encounter Progress Notes * Chrissie Fernández MD - 05/03/2025 10:10 AM EDT Images from the original note were not included. OB FOLLOW UP CC- Here for care of Boris Deras is a 25 y.o. 24w0d patient being seen today for her obstetrical follow up visit. Patient reports improved headaches with Flonase and tingling in her finger tips. Her care is complicated by (and status) : see below. Patient Active Problem List Diagnosis Crohn's disease Herpes simplex Lupus erythematosus Family history of congenital heart defect Hx of preeclampsia, prior , currently Family history of autosomal aneuploidy Choroid plexus cysts, , affecting care of mother, antepartum Second trimester Previous section Ultrasound Today: Yes with PDC. Per PDC- Today's exam reveals a SIUP in transverse [...] ventricular septal defect by color-flow Doppler. No pleuralor pericardial effusion. See detailed echocardiogram parameters as above. The KALEE is normal. . Patient scheduled to see PDC at 32 weeks on 03/28/25. Reviewed 1 hr glucose testing and TDAP next visit. ROS - Patient Denies: leaking of fluid, vaginal bleeding, dysuria, excessive vomiting, and more than 6 contractions per hour Movement : normal Other than what is documented in the HPI, all other systems reviewed and are negative. The additional following portions of the patient's history were reviewed and updated as appropriate: allergies, current medications, and problem list. I have reviewed and agree with the HPI, ROS, and historical information as entered above. Chrissie Fernández MD BP 122/64 Wt 82.6 kg (182 lb) LMP 11/16/2024 (Exact Date) BMI 32.24 kg/m?? EXAM: Vitals BP: 122/64 Weight: 82.6 kg (182 lb) Heart Rate: PDC Urine Glucose Read-only: Negative Urine Protein Read-only: Negative Assessment and Plan Problem List Items Addressed This Visit Crohn's disease Overview Diagnosed by GI - Dr. Glover Relevant Medications Risankizumab-rzaa (Skyrizi) 360 MG/2.4ML solution cartridge Other Relevant Orders POC Urinalysis Dipstick (Completed) Herpes simplex Overview pt unsure Relevant Medications aspirin 81 MG chewable tablet Other Relevant Orders POC Urinalysis Dipstick (Completed) Lupus erythematosus - Primary Overview Patient states today that she does not have Lupus, that some lab was pos in the past (?[facility]RINA) but shehas never been treated for lupus. SSA, SSB negative Relevant Medications Risankizumab-rzaa (Skyrizi) 360 MG/2.4ML solution cartridge aspirin 81 MG chewable tablet Other Relevant Orders POC Urinalysis Dipstick (Completed) Family history of congenital heart defect Overview Patient's son was born with double aortic arch-surgery x 6 [facility] children's PDC Anatomy scan (us ordered) Relevant Medications aspirin 81 MG chewable tablet Other Relevant Orders POC Urinalysis Dipstick (Completed) Hx of preeclampsia, prior , currently Overview With G1 did not receive Mag according to patient coded during csection. Waiting for medical records Baby aspirin rx to start at 10 weeks. Baseline PEP Baseline 24 hour urine PDC Anatomy scan (us ordered) Relevant Medications aspirin 81 MG chewable tablet Other Relevant Orders POC Urinalysis Dipstick (Completed) Second trimester Relevant Medications aspirin 81 MG chewable tablet Other Relevant Orders POC Urinalysis Dipstick (Completed) Previous section Overview Plans repeat Relevant Medications aspirin 81 MG chewable tablet RESOLVED: Marginal placenta previa Overview Now posterior Relevant Medications aspirin 81 MG chewable tablet at 24w0d status reassuring. PDC scan reviewed 1 hour gtt, CBC, Antibody screen, TDAP, and RPR next visit. Instructions given Discussed/encouraged TDAP vaccination after 28 weeks Reviewed Pre-eclampsia signs/symptoms Activity and Exercise discussed. Return in about 4 weeks (around 05/31/2025) for 28wk labs. Chrissie Fernández MD 05/03/2025 documented in this encounter Plan of Treatment Upcoming Encounters Date Type Department Care Team (Late st Contact Info) Description 06/28/2025 1:15 PM EDT Office Visit [facility] [address] [facility] [address] [place] [phone] 06/28/2025 1:15 PM EDT Appointment [facility] US PER DIAG CTR [address] [place] [address] 06/28/2025 2:10 PM EDT Routine [facility] OBGYN [address] [place] [phone] Chrissie Fernández MD [address] [address] 08/16/2025 3:30 PM EST Pre-Admission Testing [facility] PREADMISSION T [address] [place] [address] 08/17/2025 7:30 AM EST Hospital Encounter [facility] LABOR DELIVERY [address] [place] [address] Chrissie Fernández MD [address] [facility] [place] [phone] 08/17/2025 7:30 AM EST - 08/17/2025 8:30 AM EST Surgery [facility] LABOR DELIVERY [address] [place] [address] Chrissie Fernández MD [address] [facility] [address] [address] SECTION REPEAT Scheduled Procedures Name Priority Associated Diagnoses Date/Ti me SECTION REPEAT 01/2025 7:30 AM EST documented as of this encounter Procedures Procedure Name Priority Date/Time Associated Diagnosis Comments POCT URINALYSIS DIPSTICK, MANUAL Routine 05/03/2025 10:58 AM EDT Lupus erythematosus, unspecified form Family history of congenital heart defect Second trimester Hx of preeclampsia, prior , currently Herpes simplex Crohn's disease with complication, unspecified gastrointestinal tract location documented in this encounter Results * POC Urinalysis Dipstick (05/03/2025 10:58 AM EDT) Glucose, UA Negative Negative mg/dL [facility] Protein, POC Negative Negative mg/dL [facility] Urine 05/03/2025 10:5 8 AM EDT us Chrissie Fernández MD POINT OF CARE TEST OR DERABLES Final Result [facility]
[address] [place] [address], documented in this encounter Visit Diagnoses Diagnosis Lupus erythematosus, unspecified form- Primary Family history of congenital heart defect Second trimester state, incidental Hx of preeclampsia, prior , currently with other poor obstetric history Herpes simplex Herpes simplex without mention of complication Crohn's disease with complication, unspecified gastrointestinal tract location Marginal placenta previa Hemorrhage from placenta previa, unspecified as to episode of care Previous section Other postprocedural status documented in this encounter Care Teams Retail Associate Relationship Specialty Start Date End Date Anna Diane MD [address] [place] [address] [place] [address] PCP - General Nurse Practitioner 12/21/24 documented as of this encounter
--- OUTSIDE RECORDS SUMMARY | 2025-05-25 18:35 | XMS_ITS | Encounter Summary ---
Author Organization [facility] Address [address] [place] [address] Care Team Providers Care Home Appliance Tech Name Role Phone Anna Diane MD Primary Care Provider Reason for Visit * Reason Comments Leaking Fluid Pt states she has be en leaking for weeks * Auth/Cert Specialty Diagnoses / Procedures Referred By Contac t Referred To Contact Procedures SECTION REPEAT Referral ID Status Reason Start Date Expiration Date Visits Re quested Visits Authorized [id number] Encounter Details Date Type Department Care Team (Late st Contact Info) Description 05/25/2025 6:35 PM EDT - 05/25/2025 8:25 PM EDT Hospital Encounter [facility]OR DELIVERY [address] [place] [address] Chrissie Fernández MD [address] [place] [address] Rahul Ceballos MD [address] [place] [address] Discharge Disposition: Home or Self Care Social [...] Sign Reading Time Taken Comments Blood Pressure 126/72 05/25/2025 6:59 PM EDT Pulse 104 05/25/2025 6:59 PM EDT Temperature - - Respiratory Rate 20 05/25/2025 6:59 PM EDT Oxygen Saturation 97% 05/25/2025 6:59 PM EDT Inhaled Oxygen Concentration - - Weight - - Height - - Body Mass Index - - documented in this encounter Functional Status * Question Answer Date of Assessment Author 1. Wish to be (Past 1 Month) No 05/25/2025 6:58 PM EDT Rozina Lowery RN 2. Non-Specific Active Suicidal Thoughts (Past 1 Month) No 05/25/2025 6:58 PM EDT Rozina Lowery RN * Calculated C-SSRS Risk Score (Lifetime/Recent) Answer Date of Assessment Author No Risk Indicated 05/25/2025 6:58 PM EDT Kimberly Ng RN * [facility] Suicide Severity Rating Scale (Screener/Recent Self-Report) Question Answer Date of Assessment Author 6. Suicidal Behavior (Lifetime) No 05/25/2025 6:58 PM EDT Rozina Lowery RN documented as of this encounter Discharge Instructions * Discharge Instr - Other Orders* Rachel Kilgore RN - 05/25/2025 8:08 PM EDT Keep all appointments with office. Call labor johns or your OB with any questions or concerns. Come in with any gush of fluid like your water broke, bleeding like a period, decreased movements, contractions that are regular. documented in this encounter Medications at Time of Discharge [...] as directed. documented as of this encounter H&P Notes * Rahul Ceballos MD - 05/25/2025 8:14 PM EDT Images from the original note were not included. [facility] Obstetric History and Physical Referring Provider: Chrissie Fernández* Chief Complaint Patient presents with Leaking Fluid Pt states she has been leaking for weeks HPI: Patient is a 25 y.o. female currently at 27w1d, who presents with a complaint of vaginal discharge. She is not lisa if her water is broken or what. She has just noticed increased wetness over the last couple of weeks. She did not have this in her last . She denies vaginal bleeding. Denies contractions, N/V/F/C. She says she sometimes feels a little burning with urination, but onlyoccasionally. She is not currently sexually active. She denies burning or odour with urination. Information: Maternal Labs Blood Type No results found for: ABO Rh Status No results found for: RH Antibody Screen No results found for: ABSCRN Gonnorhea No results found for: GCCX Chlamydia No results found for: CLAMYDCU RPR No results found for: RPR Syphilis Antibody No results found for: SYPHILIS Rubella No results found for: RUBELLAIGGIN Hepatitis B Surface Antigen No results found for: HEPBSAG HIV-1 Antibody No results found for: LABHIV1 Hepatitis C Antibody No results found for: HEPCAB Rapid Urin Drug Screen No results found for: AMPMETHU , BARBITSCNUR , LABBENZSCN , LABMETHSCN , LABOPIASCN , THCURSCR , COCAINEUR , AMPHETSCREEN , PROPOXSCN , BUPRENORSCNU , METAMPSCNUR , OXYCODONESCN , TRICYCLICSCN Group B Strep Culture No results found for: GBSANTIGEN External Results Outside Results - Transcribed From Office Records - See Scanned Records For Details Test Value Date Time ABO O 01/08/25 1245 Rh Positive 01/08/25 1245 Antibody Screen Negative 01/08/25 1245 Varicella IgG Rubella 9.99 index 01/08/25 1245 Hgb 12.6 g/dL 01/08/25 1245 Hct 39.5 % 01/08/25 1245 HgB A1c 5.2 % 01/08/25 1245 1h GTT 3h GTT Fasting 3h GTT 1 hour 3h GTT 2 hour 3h GTT 3 hour Gonorrhea (discrete) Negative 01/08/25 1245 Chlamydia (discrete) Negative 01/08/25 1245 RPR Non Reactive 01/08/25 1245 Syphils cascade: TP-Ab (FTA) TP-Ab TP-Ab (EIA) TPPA HBsAg Negative 01/08/25 1245 Herpes Simplex Virus PCR Herpes Simplex VIrus Culture HIV Non Reactive 01/08/25 1245 Hep C RNA Quant PCR Hep C Antibody Non Reactive 01/08/25 1245 AFP NIPT Cystic Fibrosis (Williams) Cystic Fibroisis Spinal Muscular atrophy Fragile X Group B Strep GBS Susceptibility to Clindamycin GBS Susceptibility to Erythromycin Fibronectin Genetic Testing, Maternal Blood Drug Screening Test Value Date Time Urine Drug Screen Amphetamine Screen Negative ng/mL 01/08/25 1245 Barbiturate Screen Negative ng/mL 01/08/25 1245 Benzodiazepine Screen Negative ng/mL 01/08/25 1245 Methadone Screen Negative ng/mL 01/08/25 1245 Phencyclidine Screen Negative ng/mL 01/08/25 1245 Opiates Screen THC Screen Cocaine Screen Propoxyphene Screen Negative ng/mL 01/08/25 1245 Buprenorphine Screen Methamphetamine Screen Oxycodone Screen Tricyclic Antidepressants Screen Legend ^: Historical Past OB History: OB History Para Term AB Living 3 1 0 1 1 1 SAB IAB Ectopic Molar Multiple Live Births 1 0 0 0 0 1 # Outcome Date GA Lbr Vishal/2nd Weight Sex Type Anes PTL Lv 3 Current 2 01/24/23 36w4d 3317 g (7 lb 5 oz) M CS-LTranv EPI, Spinal N MATT Complications: Gestational hypertension, Preeclampsia 1 SAB 2018 5w0d Obstetric Comments FOB 1- 1st preg FOB 2- 2nd to 3rd preg Past Medical History: Past Medical History: Diagnosis Date Asthma as a child Chronic headaches Crohn disease 07/2023 Preeclampsia 2022 Past Surgical History Past Surgical History: Procedure Laterality Date SECTION 2022 COLONOSCOPY W/ BIOPSIES CYST REMOVAL buttock TONSILLECTOMY AND ADENOIDECTOMY WISDOM TOOTH EXTRACTION Family History: Family History Problem Relation Age of Onset Hypertension Mother Diabetes type II Paternal Grandmother Diabetes type II Paternal Aunt Diabetes type II Other Social History: reports that she has never smoked. She has never used smokeless tobacco. reports that she does not currently use alcohol. reports no history of drug use. General ROS Negative Findings: All pertinent positives and negatives are addressed in the HPI Vital Signs Range for the last 24 hours Temperature: Temp Source: BP: BP: (126)/(72) 126/72 Pulse: Heart Rate: [104] 104 Respirations: Resp: [20] 20 SPO2: SpO2: [97 %] 97 % O2 Amount (l/min): O2 Devices Weight: Physical Examination: General: alert, appears stated age, and cooperative Chest: CTAB Heart: Regular rate Abdominal Soft, non-tender, gravid uterus Lower Extremities: +1 edema Cervix: Exam by: Tahira Dilation: Closed Effacement: Thick Station: -1 Heart Rate Assessment Method: Beats/min: Baseline: 140s Varibility: Accels: Decels: Tracing Category: Uterine Assessment Method: Frequency (min): None Ctx Count in 10 min: Duration: Intensity: Intensity by IUPC: Resting Tone: Resting Tone by IUPC: [place] Units: Laboratory Results: Lab Results (last 24 hours) Procedure Component Value Units Date/Time Urinalysis, Microscopic Only - Urine, Clean Catch [[id number]] (Abnormal) Collected: 05/25/251908 Specimen: Urine, Clean Catch Updated: 05/25/252007 RBC, UA 3-5 /HPF WBC, UA 11-20 /HPF Bacteria, UA 1+ /HPF Squamous Epithelial Cells, UA 3-6 /HPF Hyaline Casts, UA 3-6 /LPF Mucus, UA Moderate/2+ /HPF Methodology Manual Light Microscopy Urinalysis With Microscopic If Indicated (No Culture) - Urine, Clean Catch [[id number]] (Abnormal) Collected: 05/25/251908 Specimen: Urine, Clean Catch Updated: 05/25/251947 Color, UA Yellow Appearance, UA Clear pH, UA 6.5 Specific [place], UA 1.021 Glucose, UA Negative Ketones, UA Negative Bilirubin, UA Negative Blood, UA Negative Protein, UA Trace Leuk Esterase, UA Small (1+) Nitrite, UA Negative Urobilinogen, UA 1.0 E.U./dL POC Amnisure [[id number]] (Normal) Collected: 05/25/251933 Specimen: Amniotic Fluid Updated: 05/25/251933 Amnisure Negative Radiology Review: Imaging Results (Last 24 Hours) No results found for the last 24 hours. Other Studies: NST: Indication: Vaginal discharge Start time: 1924 End time: 1999 Accels:Y Decels:N BPM:140s CAT: I NST - Reactive NST Assessment & Plan JON Course / Assessment/Plan 1. All lab and imaging results listed above have been reviewed by me. 2. Intrauterine at 27w1d gestation with reactive status. 3. Vaginal discharge - No S/S or other evidence of PPROM or UTI> 4. Given education and reassurance 5. Reviewed - S/S for her to return or notify her provider 6. Questions answered 7. D/C Home. Rahul Ceballos MD 05/25/2025 20:14 EDT documented in this encounter Plan of Treatment Upcoming Encounters Date Type Department Care Team (Late st Contact Info) Description 06/28/2025 1:15 PM EDT Office Visit [facility] MATERNAL MEDICINE [address] [address] 06/28/2025 1:15 PM EDT Appointment [facility] US PER DIAG [facility] [address] [place] [address] 06/28/2025 2:10 PM EDT Routine [facility] OBGYN [address] [address] Chrissie Fernández MD [address] [address] 08/16/2025 3:30 PM EST Pre-Admission Testing [facility] PREADMISSION T [address] [place] [address] 08/17/2025 7:30 AM EST Hospital Encounter [facility] DELIVERY [address] [place] [address] Chrissie Fernández MD [address] [facility] [address] [place] [address] 08/17/2025 7:30 AM EST - 08/17/2025 8:30 AM EST Surgery [facility] DEL[facility]ERY [address] [place] [address] Chrissie Fernández MD [address] [facility] [address] [place] [address] SECTION REPEAT Scheduled Procedures Name Priority Associated Diagnoses Date/Ti me SECTION REPEAT 01/2025 7:30 AM EST documented as of this encounter Procedures Procedure Name Priority Date/Time Associated Diagnosis Comments POCT AMNISURE ROM TEST Routine 05/25/2025 7:34 PM EDT URINALYSIS, MICROSCOPIC ONLY STAT 05/25/2025 7:09 PM EDT URINALYSIS W/ MICROSCOPIC IF INDICATED (NO CULTURE) STAT 05/25/2025 7:09 PM EDT documented in this encounter Results * POC Amnisure (05/25/2025 7:34 PM EDT) Amnisure Negative Negative [facility] Amniotic Fluid 05/25/2025 7: 34 PM EDT us Rahul Ceballos MD POINT OF CARE TEST ORDERABLES Final Result [facility]
[address] [place] [address], * (ABNORMAL) Urinalysis, Microscopic Only - Urine, Clean Catch (05/25/2025 7:09 PM EDT) RBC, UA 3-5(A) None Seen, 0-2 /HPF 05/25/2025 8:08 PM EDT [facility] WBC, UA 11-20(A) None Seen, 0-2 /HPF 05/25/2025 8:08 PM EDT [facility] Bacteria, UA 1+(A) None Seen /HPF 05/25/2025 8:08 PM EDT [facility] Squamous Epithelial Cells, UA 3-6(A) None Seen, 0-2 /HPF 05/25/2025 8:08 PM EDT [facility] Hyaline Casts, UA 3-6 None Seen /LPF 05/25/2025 8:08 PM EDT [facility] Mucus, UA Moderate/2+(A) None Seen, Trace /HPF 05/25/2025 8:08 PM EDT [facility] Methodology Manual Light Microscopy 05/25/2025 8:08 PM EDT [facility] Urine Urine specimen obtained by clean catch procedure / Unknown Collection / Unknown 05/25/2025 7:09 PM EDT 05/25/2025 7:23 PM EDT Rahul Ceballos MD URINE ORDERABLES Final Result [facility]
[address] [place] [address], [place] [phone] * (ABNORMAL) Urinalysis With Microscopic If Indicated (No Culture) - Urine, Clean Catch (05/25/2025 7:09 PM EDT) Color, UA Yellow Yellow, Straw 05/25/2025 7:48 PM EDT [facility] Appearance, UA Clear Clear 05/25/2025 7:48 PM EDT [facility] pH, UA 6.5 5.0 - 8.0 05/25/2025 7:48 PM EDT [facility] Specific [place], UA 1.021 1.005 - 1.030 05/25/2025 7:48 PM EDT [facility] Glucose, UA Negative Negative 05/25/2025 7:48 PM EDT [facility] Ketones, UA Negative Negative 05/25/2025 7:48 PM EDT [facility] Bilirubin, UA Negative Negative 05/25/2025 7:48 PM EDT [facility] Blood, UA Negative Negative 05/25/2025 7:48 PM EDT [facility] Protein, UA Trace(A) Negative 05/25/2025 7:48 PM EDT [facility] Leuk Esterase, UA Small (1+)(A) Negative 05/25/2025 7:48 PM EDT [facility] Nitrite, UA Negative Negative 05/25/2025 7:48 PM EDT [facility] Urobilinogen, UA 1.0 E.U./dL 0.2 - 1.0 E.U./dL 05/25/2025 7:48 PM EDT [facility] Urine Urine specimen obtained by clean catch procedure / Unknown Collection / Unknown 05/25/2025 7:09 PM EDT 05/25/2025 7:23 PM EDT Rahul Ceballos MD URINE ORDERABLES Final Result [facility]
[address] [place] [address], documented in this encounter Visit Diagnoses Not on filedocumented in this encounter Care Teams Home Appliance Tech Relationship Specialty Start Date End Date Anna Diane MD [address] [place] [address] [place] [address] PCP - General Nurse Practitioner 12/21/24 documented as of this encounter
--- OUTSIDE RECORDS SUMMARY | 2025-05-31 10:30 | XMS_ITS | Encounter Summary ---
[facility] Address [address] [place] [address] Care Team Providers Care Director Of Psychiatry Name Role Phone Anna Diane MD Primary Care Provider Reason for Visit * Reason Comments Routine Visit Encounter Details Date Type Department Care Team (Late st Contact Info) Description 05/31/2025 10:30 AM EDT Routine [facility] OBGYN [address] [place] [address] Luz Elena Craig, LAUNDRY AIDE 1700 [facility] [address] [place] [address] GA: 28w0d Social History Tobacco Use Types [...] encounter Progress Notes * Luz Elena Craig, LAUNDRY AIDE - 05/31/2025 10:30 AM EDT Images from [...] information as entered above. Luz Elena Chaney, LAUNDRY AIDE BP 122/86 Wt 84.4 kg (186 lb) [...] Off this time, > 50% was spent [id number] time coordinating care, answering her questions and counseling regarding pathophysiology ofher presenting problem along with plans for any diagnositc work-up and treatment. Luz Elena Craig APRN 05/31/2025 documented in this encounter Plan of Treatment Upcoming Encounters Date Type Department Care Team (Late st Contact Info) Description 06/28/2025 1:15 PM EDT Office Visit [facility] MATERNAL MEDICINE [id number] [place] [address] 06/28/2025 1:15 PM EDT Appointment [facility] [address] [place] [address] 06/28/2025 2:10 PM EDT Routine [facility] [facility] [address] [place] [address] Chrissie Fernández MD [address] [id number] 08/16/2025 3:30 PM EST Pre-Admission Testing PREADMISSION T [address] [place] [address] 08/17/2025 7:30 AM EST Hospital Encounter LABOR DELIVERY [address] [place] [address] Chrissie Fernández MD [address] [place] [address] 08/17/2025 7:30 AM EST - 08/17/2025 8:30 AM EST Surgery LABOR DELIVERY [address] [place] [address] Chrissie Fernández MD [address] [address] SECTION REPEAT Scheduled Procedures Name Priority Associated [...] 06/02/2025 6:09 AM EDT Performed at: - [address] [id number] Professional Caster: Oscar Purdy PhD, Phone: [phone] Patient Fasting: N Luz Elena Craig LAUNDRY AIDE MICROBIOLOGY - GENERAL OR DERABLES Final Result [facility] [facility] [place] (AMBULATORY) [address] [place] [address], [place] [phone] [facility] [address] [place] [address], * (ABNORMAL) POC Urinalysis Dipstick (05/31/2025 11:44 AM EDT) Color Yellow Yellow, Straw, Dark Yellow, Adali [facility] Clarity, UA Clear Clear [facility] Glucose, UA Negative Negative mg/dL [facility] Bilirubin Negative Negative [facility] Ketones, UA 1+(A) Negative [facility] Specific [place] 1.010 1.005 - 1.030 [facility] Blood, UA 2+(A) Negative [facility] pH, Urine 6.5 5.0 - 8.0 [facility] Protein, POC 1+(A) Negative mg/dL [facility] Urobilinogen, UA Normal Normal, 0.2 E.U./dL [facility] Leukocytes Small (1+)(A) Negative [facility] Nitrite, UA Negative Negative [facility] Urine 05/31/2025 11:4 4 AM EDT Luz Elena Craig LAUNDRY AIDE POINT OF CARE TEST ORDERA BLES Final Result [facility]
[address] [place] [address], * RPR Qualitative with Reflex to Quant (05/31/2025 11:29 AM EDT) Pathologist [facility] RPR Non Reactive Non Reactive [facility] Blood 05/31/2025 11:2 9 AM EDT 05/31/2025 Narrative [facility] ([facility]) - 06/01/2025 10:10 AM EDT Performed at: [address] [place] [id number] Professional Caster: Oscar Purdy PhD, Phone: [phone] Patient Fasting: N Luz Elena Craig APRN LAB BLOOD ORDERABLES Marcella l Result Performing Organization Address City/[facility]/ZIP Co de Phone Number [facility] (AMBULATORY) [address] [place] [address], [place] [phone] [facility] [address] [place] [address], [place] [phone] * Gestational Screen 1 Hr ([facility]) (05/31/2025 11:29 AM EDT) Pathologist [facility] Gestational Diabetes Screen 111 65 - 139 mg/dL [facility] Blood 05/31/2025 11:2 9 AM EDT 05/31/2025 Narrative [facility] ([facility]) - 05/31/2025 8:09 PM EDT Performed at: [address] [place] [id number] Professional Caster: Yakov South MD, Phone: [phone] Patient Fasting: N Luz Elena Craig LAUNDRY AIDE LAB BLOOD ORDERABLES Marcella l Result [facility] (AMBULATORY) [address] [place] [address], [facility] [address] [place] [address], [place] [phone] * (ABNORMAL) CBC (No Diff) (05/31/2025 11:29 AM EDT) [facility] WBC 8.32 3.40 - 10.80 10*3/mm3 [facility] [...] 11:2 9 AM EDT 05/31/2025 Narrative [facility] (AMBULATORY) - 06/01/2025 7:09 AM EDT Performed at: [address] [place] [id number] Professional Caster: Yakov South MD, Phone: [phone] Patient Fasting: N Luz Elena Craig LAUNDRY AIDE LAB BLOOD ORDERABLES Marcella l Result [facility] [address] [place] [address], [place] [phone] [facility] [address] [place] [address], [place] [phone] * Antibody Screen (05/31/2025 11:29 AM EDT) Antibody Screen Negative Negative [facility] Blood 05/31/2025 11:2 9 AM EDT 05/31/2025 Narrative [facility] ([facility]) - 06/01/2025 8:11 AM EDT Performed at: 01 - [facility] [address] [place] [id number] Professional Caster: Oscar Purdy PhD, Phone: [phone] Patient Fasting: N us Luz Elena Craig LAUNDRY AIDE BLOOD BANK TEST ORDERABLE S Final Result [facility] (AMBULATORY) [address] [place] [address], [place] [phone] [facility] [address] [place] [address], [place] [phone] documented in this encounter Visit Diagnoses Diagnosis 28 weeks gestation of - Primary Third trimester state, incidental Back pain affecting Flank pain Abdominal pain, unspecified site documented in this encounter Care Teams Director Of Psychiatry Relationship Specialty Start Date End Date Anna Diane MD [address] [place] [address] TUCKER Singh [address] PCP - General Nurse Practitioner 12/21/24 documented as of this encounter
--- OUTSIDE RECORDS SUMMARY | 2025-06-07 14:45 | XMS_ITS | Encounter Summary ---
[facility] Organization [facility] Address [address] [place] [address] Care Team Providers Care Delphi Developer Name Role Phone Anna Diane MD Primary Care Provider Reason for Visit * Reason Comments Non-stress Test Problem Encounter Details Date Type Department Care Team (Late st Contact Info) Description 06/07/2025 2:45 PM EDT Routine [facility] OBGYN [address] [place] [address] Luz Elena Craig, TAG MACHINE OPERATOR 1700 [facility] [address] [place] [address] GA: 29w0d Social History Tobacco Use Types Packs/Day Years [...] Sign Reading Time Taken Comments Blood Pressure 118/76 06/07/2025 3:14 PM EDT Pulse - - Temperature - - Respiratory Rate - - Oxygen Saturation - - Inhaled Oxygen Concentration - - Weight 84.8 kg (187 lb) 06/07/2025 3:14 PM EDT Height - - Body Mass Index 33.13 01/01/2025 11:33 AM EDT documented in this encounter Progress Notes * Luz Elena Craig Alonso, TAG MACHINE OPERATOR - 06/07/2025 2:45 PM EDT Images from the original note were not included. CC- SOA, contractions Boris Deras is a 25 y.o. 29w0d patient being seen today for SOA, contractions and back pain. Patient called and reports that she lost pieces of her mucus plug yesterday at two different times.She reports last night she had lower back pain that lasted about 2 hours then went away. She reports drinking 68 oz of water yesterday. She has not had the back pain today. She is also reporting SOB today. She denies recent illness. She states she just feels like when she is active, she needs to gosit down to rest more. She reports increased swelling in bilateral legs and feet over the weekend, but none today. She denies MAGALLON, vision changes, or RUQ pain. She has hx of pre-e with prior . She reports good FM, and also reports nausea today. She reported lower back pain at last visit on 05/31 and urine culture was sent and WNL. Her cervix was checked and was closed/thick. She has been using a belly band, but it did not help the pain that she was having. She states the pain comes and goes like contractions. The pain has now subsided. Her care is complicated by (and status) : Patient Active Problem List Diagnosis Crohn's disease Herpes simplex Lupus erythematosus Family history of congenital heart defect Hx of preeclampsia, prior , currently Family history of autosomal aneuploidy Choroid plexus cysts, , affecting care of mother, antepartum Second trimester Previous section Ultrasound Today: No. Non Stress Test: Yes minutes >20 non-stress test: NST: Reactive indication: R/O contractions No contractions noted ROS - Patient Reports : discharge, nausea, back pain, swelling Patient Denies: Loss of Fluid and Vaginal Spotting Movement : normal All other systems reviewed and are negative. The additional following portions of the patient's history were reviewed and updated as appropriate: allergies, current medications, past family history, past medical history, past social history, past surgical history, and problem list. I have reviewed and agree with the HPI, ROS, and historical information as entered above. Luz Elena Chaney APRN BP 118/76 Wt 84.8 kg (187 lb) LMP 11/16/2024 (Exact Date) BMI 33.13 kg/m?? EXAM: Vitals BP: 118/76 Weight: 84.8 kg (187 lb) Heart Rate: NST Dilation/Effacement/Station Dilation: Closed Effacement (%): 0 Assessment and Plan Problem List Items Addressed This Visit None Visit Diagnoses care, subsequent in third trimester - Primary Relevant Orders POC Urinalysis Dipstick (Completed) Urine Culture - Urine, Urine, Clean Catch Shortness of breath due to Back pain affecting CCUA negative. NST reactive with no contractions noted. Cervix closed/thick. Lungs CTAB, heart RRR, O2 sat- 98%, HR-96. SOA is associated with increased activity and not present at rest. Denies CP at 29w0d status reassuring. JAIDA precautions reviewed Call for persistent SOA or associated with chest pain/palpitations Increase PO fluids Advised warm tub bath, heating pad to low back only Return for regularly scheduled OB appointment. RTC for worsening symptoms Return for Next scheduled follow up. discomforts and remedies reviewed. Luz Elena Craig APRN 06/07/2025 documented in this encounter Plan of Treatment Upcoming Encounters Date Type Department Care Team (Late st Contact Info) Description 06/28/2025 1:15 PM EDT Office Visit [facility]ERNAL MEDICINE 1700 [facility] [address] [place] [address] 06/28/2025 1:15 PM EDT Appointment [facility] US PER DIAG CTR [address] [place] [address] 06/28/2025 2:10 PM EDT Routine [facility] OBGYN 1700 [facility] [address] [place] [address] Chrissie Fernández MD [address] [place] [id number] 08/16/2025 3:30 PM EST Pre-Admission Testing [facility] PREADMISSION T [address] [place] [address] 08/17/2025 7:30 AM EST Hospital Encounter [facility] LABOR DELIVERY [address] [place] [address] Chrissie Fernández MD [address] [address] 08/17/2025 7:30 AM EST - 08/17/2025 8:30 AM EST Surgery [facility] LABOR DELIVERY [address] [place] [address] Chrissie Fernández MD [address] [address] SECTION REPEAT Scheduled Procedures Name Priority Associated Diagnoses Date/Ti me SECTION REPEAT 01/2025 7:30 AM EST documented as of this encounter Procedures Procedure Name Priority Date/Time Associated Diagnosis Comments POCT URINALYSIS DIPSTICK, MANUAL Routine 06/07/2025 3:36 PM EDT care, subsequent in third trimester URINE CULTURE Routine 06/07/2025 3:30 PM EDT care, subsequent in third trimester SCANNED - PROCEDURE 06/07/2025 documented in this encounter Results * (ABNORMAL) POC Urinalysis Dipstick (06/07/2025 3:36 PM EDT) Color Yellow Yellow, Straw, Dark Yellow, Adali [facility] Clarity, UA Clear Clear [facility] Glucose, UA Negative Negative mg/dL [facility] Bilirubin Negative Negative [facility] Ketones, UA Trace(A) Negative [facility] Specific [place] 1.015 1.005 - 1.030 [facility] Blood, UA Negative Negative [facility] pH, Urine 6.0 5.0 - 8.0 [facility] Protein, POC Negative Negative mg/dL [facility] Urobilinogen, UA Normal Normal, 0.2 E.U./dL [facility] Leukocytes Negative Negative [facility] Nitrite, UA Negative Negative [facility] Urine 06/07/2025 3:36 PM EDT Luz Elena Craig TAG MACHINE OPERATOR POINT OF CARE TEST ORDERA BLES Final Result [facility]
[address] [place] [address], * Urine Culture - Urine, Urine, Clean Catch (06/07/2025 3:30 PM EDT) [facility] Urine Culture Final report [facility] Result 1 Comment [facility] Comment: Mixed urogenital rodo Less than 10,000 colonies/mL Urine Urine specimen obtained by clean catch procedure / Unknown 06/07/2025 3:30 PM EDT 06/07/2025 Comment: Narrative [facility] - 06/09/2025 6:09 AM EDT Performed at: 01 - [address] [id number] Commercial Attorney: Oscar Purdy PhD, Phone: [phone] Patient Fasting: N Luz Elena Craig TAG MACHINE OPERATOR MICROBIOLOGY - GENERAL OR DERABLES Final Result Performing Organization Address City/[facility]/ZIP Co de Phone Number [facility] [address] [place] [address], [place] [phone] [facility] [address] [place] [address], [place] [phone] * Procedure Scanned (06/07/2025) us Luz Elena Craig TAG MACHINE OPERATOR PROCEDURE/MINOR SURGICAL ORDERABLES Final Result documented in this encounter Visit Diagnoses Diagnosis care, subsequent in third trimester- Primary Shortness of breath due to Back pain affecting documented in this encounter Care Teams Delphi Developer Relationship Specialty Start Date End Date Anna Diane MD [address] [facility] [place] [address] PCP - General Nurse Practitioner 12/21/24 documented as of this encounter
--- OUTSIDE RECORDS SUMMARY | 2025-06-24 15:20 | XMS_ITS | Encounter Summary ---
Author Organization [facility] Address [address] [place] [id number] Care Team Providers Care City Distribution Clerk Name Role Phone Anna Diane MD Primary Care Provider Encounter Details Date Type Department Care Team (Latest Contact Info) Description 06/07/2025 Travel Social History Tobacco Use Types Packs/Day Years [...] on file documented as of this encounter Plan of Treatment Upcoming Encounters Date Type Department Care Team (Late st Contact Info) Description 06/28/2025 1:15 PM EDT Office Visit [facility] MATERNAL MEDICINE 1700 [facility] [address] [place] [address] 06/28/2025 1:15 PM EDT Appointment [facility] US PER DIAG CTR [address] [place] [address] 06/28/2025 2:10 PM EDT Routine [facility] OBGYN 1700 [facility] [address] [place] [address] Chrissie Fernández MD [address] [address] 08/16/2025 3:30 PM EST Pre-Admission Testing [facility] PREADMISSION T [address] [place] [address] 08/17/2025 7:30 AM EST Hospital Encounter [facility] LABOR DELIVERY [address] [facility] [place] [address] Chrissie Fernández MD [address] [address] 08/17/2025 7:30 AM EST - 08/17/2025 8:30 AM EST Surgery [facility] LABOR DELIVERY [address] [facility] [place] [address] Chrissie Fernández MD [address] [address] SECTION REPEAT Scheduled Procedures Name Priority Associated Diagnoses Date/Ti me SECTION REPEAT 01/2025 7:30 AM EST documented as of this encounter Visit Diagnoses Not on filedocumented in this encounter Care Teams City Distribution Clerk Relationship Specialty Start Date End Date Anna Diane MD [address] [place] [address] TUCKER Singh [address] PCP - General Nurse Practitioner 12/21/24 documented as of this encounter
--- OUTSIDE RECORDS SUMMARY | 2025-06-24 15:20 | XMS_ITS | Encounter Summary ---
[facility] Organization [facility] Address [address] [place] [address] Care Team Providers Care Bottle Labeler Name Role Phone Anna Diane MD Primary Care Provider Encounter Details Date Type Department Care Team (Late st Contact Info) Description 06/10/2025 Results Follow-Up [facility] OBGYN [address] [place] [address] Luz Elena Craig, RECREATION ATTENDANT SUPERVISOR 1700 [facility] [address] [place] [address] Social History Tobacco Use Types Packs/Day Years [...] Description 06/28/2025 1:15 PM EDT Office Visit [facility] MATERNAL MEDICINE 1700 [facility] [address] [place] [address] 06/28/2025 1:15 PM EDT Appointment [facility] [address] [place] [address] 06/28/2025 2:10 PM EDT Routine [facility] [address] [place] [address] Chrissie Fernández MD [address] [address] 08/16/2025 3:30 PM EST Pre-Admission Testing [facility] PREADMISSION T [address] [place] [address] 08/17/2025 7:30 AM EST Hospital Encounter [facility] LABOR DELIVERY [address] [place] [address] Chrissie Fernández MD [address] [address] 08/17/2025 7:30 AM EST - 08/17/2025 8:30 AM EST Surgery [facility] LABOR DELIVERY [address] [place] [address] Chrissie Fernández MD [address] [address] SECTION REPEAT Scheduled Procedures Name Priority Associated Diagnoses Date/Ti me SECTION REPEAT 01/2025 7:30 AM EST documented as of this encounter Visit Diagnoses Not on filedocumented in this encounter Care Teams Bottle Labeler Relationship Specialty Start Date End Date Anna Diane MD [address] [place] [address] TUCKER Singh [address] PCP - General Nurse Practitioner 12/21/24 documented as of this encounter
--- OUTSIDE RECORDS SUMMARY | 2025-06-24 15:20 | XMS_ITS | Clinical Summary ---
Author Organization [facility] Address [address] [place] [address] Care Team Providers Care Multimedia Engineer Name Role Phone Anna Diane MD Primary Care Provider Allergies Active Allergy Reactions Criticality Noted Date Comments Adalimumab Swelling,Rash Medium 01/01/2025 Throat swelled but not anaphylaxis Medications Risankizumab-rza a (Skyrizi) 360 MG/2.4ML solution cartridge Inject under the skin into the appropriate area as directed. Active MV & Min w/FA-DHA ( Gummies) 0.18-25 MG chewable tablet Chew. Active fluticasone (FLONASE) 50 MCG/ACT nasal spray Administer 2 sprays into the nostril(s) as directed by provider Daily. Active aspirin 81 MG chewable tabletIndication s:Lupus erythematosus, unspecified form Chew 1 tablet 2 (Two) Times a Day. 60 tablet 2 5 Active ferrous sulfate 325 (65 FE) MG tablet Take 1 tablet by mouth Daily With Breakfast. 30 tablet 2 5 Active Active Problems Problem Noted Date Diagnosed Date Choroid plexus cysts, , affecting care of mother, antepartum 03/31/2025 Assessment & Plan (03/31/2025 12:43 PM EDT): The potential complications associated with choroid plexus cysts were discussed with the patient. Choroid plexus cysts are associated with an increase in risk for trisomies 18 and 21 syndrome. In low risk populations with otherwise normal anatomy and normal growth, however, these likely represent a normal variant as they are present in 2-3% of the population. There are numerous abnormal ultrasonographic findings in trisomy 18 syndrome including clenching of the hands, rockerbottom feet, cleft lip, congenital heart defects, abdominal wall defects, diaphragmatic hernia, neural tube defects, cystic hygroma, single umbilical artery as well as choroid plexus cysts. As the ultrasonographic evaluation is negative for these findings except for the presence of a choroid plexus cyst (please see above complete ultrasound description), the likelihood of trisomy 18 syndrome is small particularly if 1st and/or 2nd trimester screening are negative. Choroid plexus cysts pose no concern for abnormal brain growth or development in isolation. Typically these cysts will resolve by 26 weeks' gestation. Second trimester 03/31/2025 Previous section 03/31/2025 Overview (03/31/2025): Plans repeat Family history of autosomal aneuploidy 5 Hx of preeclampsia, prior , currently p regnant 01/08/2025 Overview (01/08/2025): With G1 did not receive Mag according to patient coded during csection. Waiting for medical records Baby aspirin rx to start at 10 weeks. Baseline PEP Baseline 24 hour urine PDC Anatomy scan (us ordered) Herpes simplex 01/01/2025 Overview (01/01/2025): pt unsure Family history of congenital heart defect 2024 Overview (01/08/2025): Patient's son was born with double aortic arch-surgery x 6 [facility] children's PDC Anatomy scan (us ordered) Assessment & Plan (05/03/2025 9:42 AM EDT): Patient presents for echo secondary to 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 We discussed the limitations of echo including diagnosing valvular abnormalities and small VSDs. Today's echo overall appears normal. Plan for repeat evaluation at 32 weeks. Assessment & Plan (03/31/2025 1:05 PM EDT): Patient referred for complicated by previous child with congenital heart disease. Patient had a previous child born with a double aortic arch. Patient additionally has Crohn's disease. There is some question is whether she has lupus but patient does not currently believe so. Patient reports during scan that during workup for her child subaortic arch she was discovered to have a deletion on chromosome #21. Patient reports no other complications at present. Ultrasound today demonstrates a normally grown fetus. Unilateral choroid plexus cyst was seen today. No other abnormalities were seen and no other markers for trisomy were seen. Amniotic fluid volume and cervical length were normal. Mechanical OR interval was normal for gestational age. This fetus is an increased risk for congenital heart disease given patient's history. With a left-sided lesion in her previous child this fetus may be at is much as a 10% risk of congenital heart disease. No abnormalities are seen today but was too early to perform an anatomic survey. We additionally performed mechanical OR testing as the patient has never had SSA and SSB antibodies performed. We will order these today to ensure that the patient does not have antibodies that would increase the risk of congenital heart block. We will rescan the patient again in 4 weeks time perform an anatomic survey. With the possibility that her previous child had a chromosomal abnormality we discussed that serum screening might not detect a partial chromosome #21 deletion. We discussed that the only method to detect this abnormality in utero would be an amniocentesis. Amniocentesis was discussed with the patient. The procedure was explained the risks including risk of loss were outlined. After careful consideration the patient declines amniocentesis. We additionally discussed with the patient the risk of chronic disease notably Crohn's disease and possible lupus on the . We would recommend serial scans for growth at 28 and 32 weeks gestation. Patient was informed of the tendency for autoimmune diseases to flare in the period and will contact her providers for these diseases early if she notices any increasing symptoms. Crohn's disease 01/22/2024 Overview (01/01/2025): Diagnosed by MCKAY Glover Lupus erythematosus 06/08/2019 Overview (04/12/2025): Patient states today that she does not have Lupus, that some lab was pos in the past (?CATRINA) but she has never been treated for lupus. SSA, SSB negative Estimated Date of Delivery Comme nts Yes 08/23/2025 Based on last me nstrual period of 11/16/2024 (Exact Date) Resolved Problems Problem Noted Date Diagnosed Date Resolved Date Marginal placenta previa 01/08/2025 Overview (05/03/2025): Now posterior Preeclampsia 01/08/2025 Encounters Date Type Department Care Team Description 06/10/2025 Results Follow-Up [facility] OBGYN [address] [place] [address] Luz Elena Craig, AMPHIBIOUS OPERATIONS OFFICER 06/07/2025 2:45 PM EDT Routine [facility] O[facility]YN [address] [place] [address] Luz Elena Craig, AMPHIBIOUS OPERATIONS OFFICER GA: 29w0d 06/07/2025 Travel 06/07/2025 Telephone [facility] [address] [facility] [address] [place] [phone] Fernández MD DR[address] TRACEY CARBAJAL-MUCUS PLUG 06/01/2025 Results Follow-Up [facility] OBGYN [address] [place] [address] Luz Elena Craig, AMPHIBIOUS OPERATIONS OFFICER 05/31/2025 10:30 AM EDT Routine [facility] [place] [address] Luz Elena Craig, AMPHIBIOUS OPERATIONS OFFICER GA: 28w0d 05/31/2025 Travel 05/25/2025 6:35 PM EDT - 05/25/2025 8:25 PM EDT Hospital Encounter [facility] LABOR DELIVERY [address] [place] [address] Chrissie Fernández MD O'Broin, Seamus, MD Discharge Disposition: Home or Self Care 05/25/2025 Travel 05/25/2025 Telephone [facility] OBGYN [address] [place] [address] Chrissie Fernández MD 05/03/2025 10:10 AM EDT Routine [facility] O[facility]YN [address] [facility] [address] [place] [phone] Chrissie Fernández MD GA: 24w0d 05/03/2025 9:15 AM EDT Office Visit [facility] MATERNAL MEDICINE [address] [facility] [address] [place] [phone] Brandan Taylor MD Family history of congenital heart defect (Primary Dx) 05/03/2025 8:39 AM EDT - 05/03/2025 11:59 PM EDT Hospital Encounter [facility] US PER DIAG CTR [address] [place] [address] Brayden Garner MD Family history of congenital heart defect; Lupus erythematosus, unspecified form; Crohn's disease with complication, unspecified gastrointestinal tract location; Marginal placenta previa; Choroid plexus cyst of fetus affecting care of mother, antepartum, single or unspecified fetus Discharge Disposition: Home or Self Care 05/03/2025 Travel 04/22/2025 Telephone [facility] O[facility]YN [address] [facility] [address] [place] [address] Chrissie Fernández MD 04/13/2025 Telephone [facility] O[facility]YN [address] [facility] [address] [place] [address] Chrissie Fernández MD 04/06/2025 Results Follow-Up [facility] MATERNAL MEDICINE [address] [facility] [address] [place] [address] Brayden Garner MD Results (Called and informed patient of negative antibodies. Patient verbalized understanding.) 03/31/2025 1:50 PM EDT Lab [facility]OR[facility]ORY [address] [place] [id number] Family history of congenital heart defect; Lupus erythematosus, unspecified form; Crohn's disease with complication, unspecified gastrointestinal tract location; Marginal placenta previa; Choroid plexus cyst of fetus affecting care of mother, antepartum, single or unspecified fetus 03/31/2025 1:40 PM EDT Routine [facility] OBGYN [address] [facility] [address] [place] [address] Chrissie Fernández MD GA: 19w2d 03/31/2025 12:30 PM EDT Office Visit [facility] MATERNAL MEDICINE [address] [facility] [address] [place] [address] Brayden Garner MD Family history of congenital heart defect (Primary Dx); Lupus erythematosus, unspecified form; Crohn's disease with complication, unspecified gastrointestinal tract location; Marginal placenta previa; Choroid plexus cyst of fetus affecting care of mother, antepartum, single or unspecified fetus 03/31/2025 12:05 PM EDT - 03/31/2025 11:59 PM EDT Hospital Encounter [facility] US PER DIAG CTR [address] [place] [address] Hx of preeclampsia, prior , currently ; Family history of congenital heart defect Discharge Disposition: Home or Self Care 03/31/2025 Travel from Last 3 Months Immunizations Immunization Administration Dates Next Due Tdap 05/31/2025 Family History Medical History Relation Name Comments Hypertension Mother Diabetes type II Other maternal first cousin Diabetes type II Paternal Aunt Diabetes type II Paternal Grandmother Relation Name Status Comments Brother Born without thyroid Father Alive Mother Alive Other maternal first cousin Alive Paternal Aunt Alive Paternal Grandmother Alive Social History Tobacco Use Types Packs/Day Years Used Date Smoking Tobacco: Never Smokeless Tobacco: Never Tobacco Cessation:Counseling Given: Not Answered Alcohol Use Standard Drinks/Week Comments Not Currently [...] on file Sexual Orientation Not on file Last Filed Vital Signs Vital Sign Reading Time Taken Comments Blood Pressure 118/76 06/07/2025 3:14 PM EDT Pulse 104 05/25/2025 6:59 PM EDT Temperature - - Respiratory Rate 20 05/25/2025 6:59 PM EDT Oxygen Saturation 97% 05/25/2025 6:59 PM EDT Inhaled Oxygen Concentration - - Weight 84.8 kg (187 lb) 06/07/2025 3:14 PM EDT Height 160 cm (5' 3 ) 01/01/2025 11:33 AM EDT Body Mass Index 33.13 01/01/2025 11:33 AM EDT Plan of Treatment Upcoming Encounters Date Type Department Care Team (Late st Contact Info) Description 06/28/2025 1:15 PM EDT Office Visit [facility] MATERNAL MEDICINE [address] [facility] [address] [place] [phone] 06/28/2025 1:15 PM EDT Appointment [facility] US PER DIAG CTR [address] [place] [address] 06/28/2025 2:10 PM EDT Routine [facility] OBGYN [address] [address] Chrissie Fernández MD [address] [id number] 08/16/2025 3:30 PM EST Pre-Admission Testing [facility] PREADMISSION T [address] [place] [address] 08/17/2025 7:30 AM EST Hospital Encounter [facility] LABOR DELIVERY [address] [place] [address] Chrissie Fernández MD [address] [facility] [address] [place] [address] 08/17/2025 7:30 AM EST - 08/17/2025 8:30 AM EST Surgery [facility] LABOR DELIVERY [address] [place] [address] Chrissie Fernández MD [address] [facility] [address] [place] [address] SECTION REPEAT Scheduled Procedures Name Priority Associated Diagnoses Date/Ti me SECTION REPEAT 01/2025 7:30 AM EST Health Maintenance Due Date Last Done Comments Annual Gynecologic Pelvic an d Breast Exam 1999 PAP SMEAR 02/06/2020 ANNUAL PHYSICAL 12/23/2024 COVID-19 Vaccine ( - 2023-2 5 season) 2025 RSV Vaccine - Adults (1 - Risk 1-dose series) 06/28/2025 INFLUENZA VACCINE 07/14/2025 08/19/2023, 07/10/2017 TDAP/TD VACCINES (2 - Td or Tdap) 05/31/2035 05/31/2025 HPV VACCINES Completed 01/05/2020, 08/10/2019, 06/08/2019 Pneumococcal Vaccine 0-49 Aged Out 08/19/2023 No longer eligible based on patient's age to complete this topic HEPATITIS C SCREENING Completed 01/08/2025 Procedures Procedure Name Priority Date/Time Associated Diagnosis Comments POCT URINALYSIS DIPSTICK, MANUAL Routine 06/07/2025 3:36 PM EDT care, subsequent in third trimester URINE CULTURE Routine 06/07/2025 3:30 PM EDT care, subsequent in third trimester SCANNED - PROCEDURE 06/07/2025 URINE CULTURE Routine 05/31/2025 12:00 PM EDT 28 weeks gestation of POCT URINALYSIS DIPSTICK, MANUAL Routine 05/31/2025 11:44 AM EDT 28 weeks gestation of ANTIBODY SCREEN Routine 05/31/2025 11:29 AM EDT 28 weeks gestation of RPR Routine 05/31/2025 11:29 AM EDT 28 weeks gestation of GESTATIONAL SCREEN 1 HR Routine 05/31/2025 11:29 AM EDT 28 weeks gestation of CBC (NO DIFF) Routine 05/31/2025 11:29 AM EDT 28 weeks gestation of POCT AMNISURE ROM TEST Routine 05/25/2025 7:34 PM EDT URINALYSIS, MICROSCOPIC ONLY STAT 05/25/2025 7:09 PM EDT URINALYSIS W/ MICROSCOPIC IF INDICATED (NO CULTURE) STAT 05/25/2025 7:09 PM EDT POCT URINALYSIS DIPSTICK, MANUAL Routine 05/03/2025 10:58 AM EDT Lupus erythematosus, unspecified form Family history of congenital heart defect Second trimester Hx of preeclampsia, prior , currently Herpes simplex Crohn's disease with complication, unspecified gastrointestinal tract location [facility] Routine 05/03/2025 9:34 AM EDT Family history of congenital heart defect Lupus erythematosus, unspecified form Crohn's disease with complication, unspecified gastrointestinal tract location Marginal placenta previa Choroid plexus cyst of fetus affecting care of mother, antepartum, single or unspecified fetus POCT URINALYSIS DIPSTICK, MANUAL Routine 03/31/2025 2:37 PM EDT Second trimester SJOGREN'S AB, ANTI-SS-A/-SS-B Routine 03/31/2025 1:21 PM EDT Family history of congenital heart defect Lupus erythematosus, unspecified form Crohn's disease with complication, unspecified gastrointestinal tract location Marginal placenta previa Choroid plexus cyst of fetus affecting care of mother, antepartum, single or unspecified fetus [facility] Routine 03/31/2025 1:07 PM EDT Hx of preeclampsia, prior , currently Family history of congenital heart defect OBSTETRIC PANEL Routine 01/08/2025 12:45 PM EDT from Last 3 Months or Most Recently Relevant to Health Maintenance Results * (ABNORMAL) POC Urinalysis Dipstick (06/07/2025 3:36 PM EDT) Only the most recent of4 resultswithin the time period is included. Color Yellow Yellow, Straw, Dark Yellow, Adali [facility] Clarity, UA Clear Clear [facility] Glucose, UA Negative Negative mg/dL [facility] Bilirubin Negative Negative [facility] Ketones, UA Trace(A) Negative [facility] Specific [place] 1.015 1.005 - 1.030 [facility] Blood, UA Negative Negative [facility] pH, Urine 6.0 5.0 - 8.0 [facility] Protein, POC Negative Negative mg/dL [facility] Urobilinogen, UA Normal Normal, 0.2 E.U./dL [facility] Leukocytes Negative Negative [facility] Nitrite, UA Negative Negative [facility] Urine 06/07/2025 3:36 PM EDT Luz Elena Craig AMPHIBIOUS OPERATIONS OFFICER POINT OF CARE TEST ORDERA BLES Final Result [facility]
[address] [place] [address], * Urine Culture - Urine, Urine, Clean Catch (06/07/2025 3:30 PM EDT) Only the most recent of2 resultswithin the time period is included. Urine Culture Final report [facility] Result 1 Comment [facility] Comment: Mixed urogenital rodo Less than 10,000 colonies/mL Urine Urine specimen obtained by clean catch procedure / Unknown 06/07/2025 3:30 PM EDT 06/07/2025 Comment: Narrative [facility] ([facility]) - 06/09/2025 6:09 AM EDT Performed at: [address] [place] [address] [address] [place], [place] [id number] Activity Aid: Oscar Purdy PhD, Phone: [phone] Patient Fasting: N Luz Elena Craig APRN MICROBIOLOGY - GENERAL OR DERABLES Final Result Performing Organization Address City/[facility]/ZIP Co de Phone Number [facility] [address] [place] [address], [place] [phone] [facility] [address] [place] [address], [place] [phone] * Procedure Scanned (06/07/2025) Luz Elena Craig APRN PROCEDURE/MINOR SURGICAL ORDERABLES Final Result * Gestational Screen 1 Hr ([facility]) (05/31/2025 11:29 AM EDT) Gestational Diabetes Screen 111 65 - 139 mg/dL [facility] Blood 05/31/2025 11:2 9 AM EDT 05/31/2025 Narrative [facility] ([facility]) - 05/31/2025 8:09 PM EDT Performed at: [address] [place] [id number] Activity Aid: Yakov South MD, Phone: [phone] Patient Fasting: N Luz Elena Craig APRN LAB BLOOD ORDERABLES Marcella l Result Performing Organization Address City/[facility]/ZIP Co de Phone Number [facility] (AMBULATORY) [address] [place] [address], [place] [phone] [facility] [address] [place] [address], [place] [phone] * RPR Qualitative with Reflex to Quant (05/31/2025 11:29 AM EDT) Pathologist [facility] RPR Non Reactive Non Reactive [facility] Blood 05/31/2025 11:2 9 AM EDT 05/31/2025 Narrative [facility] ([facility]) - 06/01/2025 10:10 AM EDT Performed at: [address] [place] [address] [address] [place], [place] [id number] Activity Aid: Oscar Purdy PhD, Phone: [phone] Patient Fasting: N Luz Elena Craig AMPHIBIOUS OPERATIONS OFFICER LAB BLOOD ORDERABLES Marcella l Result [facility] ([facility]) [address] [place] [address], [facility] [address] [place] [address], * (ABNORMAL) CBC (No Diff) (05/31/2025 11:29 AM EDT) Pathologist [facility] WBC 8.32 3.40 - 10.80 10*3/mm3 [facility] [...] - 06/01/2025 7:09 AM EDT Performed at: [address] [place] [id number] Activity Aid: Yakov South MD, Phone: [phone] Patient Fasting: N Luz Elena Craig APRN LAB BLOOD ORDERABLES Marcella l Result Performing Organization Address City/[facility]/ZIP Co de Phone Number [facility] [address] [place] [address], [place] [phone] [facility] [address] [place] [address], [place] [phone] * Antibody Screen (05/31/2025 11:29 AM EDT) [facility] Antibody Screen Negative Negative [facility] Blood 05/31/2025 11:2 9 AM EDT 05/31/2025 Narrative [facility] - 06/01/2025 8:11 AM EDT Performed at: [address] [place] [address] [place] [id number] Activity Aid: Oscar Purdy PhD, Phone: [phone] Patient Fasting: N Luz Elena Craig APRN BLOOD BANK TEST ORDERABLE S Final Result Performing Organization Address [facility] Co de Phone Number [facility] (AMBULATORY) [address] [place] [address], [place] [phone] [facility] [address] [place] [address], [place] [phone] * POC Amnisure (05/25/2025 7:34 PM EDT) [facility] Signature Amnisure Negative Negative [facility] Amniotic Fluid 05/25/2025 7: 34 PM EDT Rahul Ceballos MD POINT OF CARE TEST ORDERABLES Final Result Performing Organization Address City/[facility]/ZIP Co de Phone Number [facility]
[address] [place] [address], * (ABNORMAL) Urinalysis, Microscopic Only - Urine, Clean Catch (05/25/2025 7:09 PM EDT) RBC, UA 3-5(A) None Seen, 0-2 /HPF 05/25/2025 8:08 PM EDT [facility] WBC, UA 11-20(A) None Seen, 0-2 /HPF 05/25/2025 8:08 PM EDT [facility] Bacteria, UA 1+(A) None Seen /HPF 05/25/2025 8:08 PM EDT [facility] Squamous Epithelial Cells, UA 3-6(A) None Seen, 0-2 /HPF 05/25/2025 8:08 PM EDT [facility] Hyaline Casts, UA 3-6 None Seen /LPF 05/25/2025 8:08 PM EDT [facility] Mucus, UA Moderate/2+(A) None Seen, Trace /HPF 05/25/2025 8:08 PM EDT [facility] Methodology Manual Light Microscopy 05/25/2025 8:08 PM EDT [facility] Urine Urine specimen obtained by clean catch procedure / Unknown Collection / Unknown 05/25/2025 7:09 PM EDT 05/25/2025 7:23 PM EDT Rahul Ceballos MD URINE ORDERABLES Final Result [facility]
[address] [place] [address], * (ABNORMAL) Urinalysis With Microscopic If Indicated (No Culture) - Urine, Clean Catch (05/25/2025 7:09 PM EDT) Color, UA Yellow Yellow, Straw 05/25/2025 7:48 PM EDT [facility] Appearance, UA Clear Clear 05/25/2025 7:48 PM EDT [facility] pH, UA 6.5 5.0 - 8.0 05/25/2025 7:48 PM EDT [facility] Specific [place], UA 1.021 1.005 - 1.030 05/25/2025 7:48 PM EDT [facility] Glucose, UA Negative Negative 05/25/2025 7:48 PM EDT [facility] Ketones, UA Negative Negative 05/25/2025 7:48 PM EDT [facility] Bilirubin, UA Negative Negative 05/25/2025 7:48 PM EDT [facility] Blood, UA Negative Negative 05/25/2025 7:48 PM EDT [facility] Protein, UA Trace(A) Negative 05/25/2025 7:48 PM EDT [facility] Leuk Esterase, UA Small (1+)(A) Negative 05/25/2025 7:48 PM EDT [facility] Nitrite, UA Negative Negative 05/25/2025 7:48 PM EDT [facility] Urobilinogen, UA 1.0 E.U./dL 0.2 - 1.0 E.U./dL 05/25/2025 7:48 PM EDT [facility] Urine Urine specimen obtained by clean catch procedure / Unknown Collection / Unknown 05/25/2025 7:09 PM EDT 05/25/2025 7:23 PM EDT Rahul Ceballos MD URINE ORDERABLES Final Result [facility]
[address] [place] [address], * [facility] (05/03/2025 9:34 AM EDT) Only the most recent of2 resultswithin the time period is included. Anatomical Region Laterality Modality Ultrasound 05/03/2025 9:02 AM EDT Narrative 05/03/2025 9:44 AM EDT PAT NAME: BORIS WHARTON [facility] REC#: [id number] DA: [id number] PAT GEND: F PAT TYPE: O EXAM CHAN: [id number] REF PHYS JACKELINE GOMEZ Comparison Studies The findings of this [...] EFW (oz) 5 oz EFW by: [place] ([id number]-FL) Extended Cav. septi pel. tr 5.0 mm Rubber Cutter 4.2 mm CM 7.6 mm 89% Nicolaides [...] IVC: Appears Normal 3-vessel view: Appears normal 9-klkubb-vccaoph view: Appears normal Cardiac axis: Normal Cord insertion: Normal Stomach: Normal Bladder: Normal Wants to know gender: yes Echocardiogram 2D Echo (Qualitatively) 4-chamber view: Appears normal LVOT view: Appears normal RVOT view: visualized 3-vessel view: Appears normal 6-upetat-vphtagw view: Appears normal Aortic arch view: Appears [...] by: Beny AoV annulus syst Z-score by: Bney PA main Zscore (FL) -1.24 PA main [...] 32 week growth ultrasound Coding ======= Description: 05716-20 Follow Up Ultrasound Description: 26425-85 Echo 2D, heart - initial Description: 76789-36 Doppler echo color flow Dishwasher Busser: RT All Seo , [facility] Physician: Brandan Taylor MD, FACOG Electronically signed by: Brandan Taylor MD, FACOG at: 09:44 Procedure Note Brandan Taylor MD - 05/03/2025 PAT NAME: BORIS WHARTON [facility] REC#: [id number] DA: [id number] PAT GEND: F PAT TYPE: O EXAM CHAN: [id number] REF PHYS JACKELINE GOMEZ Comparison Studies The findings of this study are compared to the prior ultrasound studydated 03/31/25 Patient Status Outpatient Indication ======== 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 Hx PTD 36 - preeclampsia. Maternal Crohn's disease. Possible Lupusdiagnosis. Previous c/s x 1. Obesity BMI 32. Maternal Assessment Pjbnrv496 cm Height (ft)5 ft Height (in)3 in Mjwcro14 kg Weight (lb)182 lb BMI32.25 kg/m Method [...] GA24 w + 0 d Assigned KATHLEEN:08/23/2025 qeyprx821 d Biometry Standard BPD56.0 mm 23w 1d 15% Hadlock OFD77.9 mm 25w 3d 92% Mariam HC215.6 mm 23w 4d 19% Hadlock Cerebellum tr27.6 mm 24w 3d 79% Hill AC184.4 mm 23w 2d 20% Hadlock Femur42.5 mm 23w 6d 33% Hadlock Ejbmwdd27.9 mm 24w 2d 48% Mariam HC / AC1.17 FTG555 g 23w 2d 22% Hadlock EFW (lb)1 lb EFW (oz)5 oz EFW by:Hadlock (VMW-HM-GR-FL) Extended Cav. septi pel. tr5.0 mm Vp4.2 mm CM7.6 mm 89% Nicolaides Nasal bone7.9 mm Head / Face / Neck Cephalic index0.72 2% Nicolaides Thorax / Lungs Thoracic ysig960.6 mm 50% [place] Thoracic area23.2 cm ThC [...] / HC0.20 FL / AC0.23 Other Structures HYS333 bpm General Evaluation Cardiac activity present. FHR [...] SVC:Appears Normal IVC:Appears Normal 3-vessel view:Appears normal 5-tykgfy-ioeoezh view:Appears normal Cardiac axis:Normal Cord insertion:Normal Stomach:Normal Bladder:Normal Wants to know gender:yes Echocardiogram 2D Echo (Qualitatively) 4-chamber view:Appears normal LVOT view:Appears normal RVOT view:visualized 3-vessel view:Appears normal 2-crzjwv-cufsvuu view:Appears normal Aortic arch view:Appears normal Ductal [...] pulmonary artery B and M-Mode Measurements Thoracic vvyi235.6 mm 50% [place] Thoracic area23.2 cm ThC [...] RV inlet Zscore (GA)-2.89 RV inlet Zscore by:Swan LV inlet Zscore (FL)-3.79 LV inlet Zscore [...] Structures Uterus / Cervix Cervix:Visualized Approach:Transabdominal Cervical .7 mm Consultation / Office Visit Office note [...] Recommendation 32 week growth ultrasound Coding ======= Description:76506-93 Follow Up Ultrasound Description:50412-24 Echo 2D, heart - initial Description:76758-63 Doppler echo color flow Dishwasher Busser: Keke Paula RT All , [facility] Physician: Brandan Taylor MD, FACOG Electronically signed by: Brandan Taylor MD, FACOG at: 09:44 Brayden Garner MD IMG US ORDERABLES Final Re sult * Sjogren's Antibody, Anti-SS-A / -SS-B (03/31/2025 1:21 PM EDT) Sjogren's Anti-SS-A <0.2 0.0 - 0.9 AI 04/01/2025 3:10 PM EDT [facility] Sjogren's Anti-SS-B <0.2 0.0 - 0.9 AI 04/01/2025 3:10 PM EDT [facility] Blood Venipuncture / Unknown 03/31/2025 1:21 PM EDT 03/31/2025 1:21 PM EDT Narrative [facility] - 04/01/2025 3:10 PM EDT Performed at: - [address] [id number] Activity Aid: Oscar Purdy PhD, Phone: [phone] Brayden Garner MD LAB BLOOD ORDERABLES Final Result [facility] [address] [place] [address], * Obstetric Panel (01/08/2025 12:45 PM EDT) Hepatitis B Surface Ag Negative Negative [facility] Hep C Virus Ab Non Reactive Non Reactive [facility] Comment: HCV antibody alone does not differentiate between previously resolved infection and active infection. Equivocal and Reactive HCV antibody results should be followed up with an HCV RNA test to support the diagnosis of active HCV infection. RPR Non Reactive Non Reactive [facility] Rubella Antibodies, IgG 9.99 Immune >0.99 index [facility] Comment: Non-immune <0.90 Equivocal 0.90 - 0.99 Immune >0.99 ABO Type O [facility] Rh Factor Positive [facility] Comment: Please note: Prior records for this patient's ABO / Rh type are not available for additional verification. Antibody Screen Negative Negative [facility] WBC 7.7 3.4 - 10.8 x10E3/uL [facility] RBC 4.31 3.77 - 5.28 x10E6/uL [facility] Hemoglobin 12.6 11.1 - 15.9 g/dL [facility] Hematocrit 39.5 34.0 - 46.6 % [facility] MCV 92 79 - 97 fL [facility] MCH 29.2 26.6 - 33.0 pg [facility] MCHC 31.9 31.5 - 35.7 g/dL [facility] RDW 13.3 11.7 - 15.4 % [facility] Platelets 287 150 - 450 x10E3/uL [facility] Neutrophil Rel % 67 Not Estab. % [facility] Lymphocyte Rel % 23 Not Estab. % [facility] Monocyte Rel % 7 Not Estab. % [facility] Eosinophil Rel % 2 Not Estab. % [facility] Basophil Rel % 1 Not Estab. % [facility] Neutrophils Absolute 5.1 1.4 - 7.0 x10E3/uL [facility] Lymphocytes Absolute 1.7 0.7 - 3.1 x10E3/uL [facility] Monocytes Absolute 0.6 0.1 - 0.9 x10E3/uL [facility] Eosinophils Absolute 0.2 0.0 - 0.4 x10E3/uL [facility] Basophils Absolute 0.0 0.0 - 0.2 x10E3/uL [facility] Immature Granulocyte Rel % 0 Not Estab. % [facility] Immature Grans Absolute 0.0 0.0 - 0.1 x10E3/uL [facility] 01/08/2025 12:4 5 PM EDT 01/08/2025 Comment:[facility]- [id number] Narrative [facility] - 01/09/2025 8:36 AM EDT Performed at: 01 - [facility] [address] [place], [place] [id number] Activity Aid: Oscar Purdy PhD, Phone: [phone] us Jackeline Gomez AMPHIBIOUS OPERATIONS OFFICER LAB BLOOD ORDERABLES Final R esult [facility] [address] [place] [address], [facility] [address] [place] [address], from Last 3 Months or Most Recently Relevant to Health Maintenance Insurance [employer] Care Teams Multimedia Engineer Relationship Specialty Start Date End Date Anna Diane MD [address] [place] [address] TUCKER Singh [address] PCP - General Nurse Practitioner 12/21/24
--- OUTSIDE RECORDS SUMMARY | 2025-06-24 15:21 | XMS_ITS | Encounter Summary ---
Author Organization [facility] Address [address] [place] [id number] Care Team Providers Care Pondman Name Role Phone Anna Diane MD Primary Care Provider Encounter Details Date Type Department Care Team (Latest Contact Info) Description 05/03/2025 Travel Social History Tobacco Use Types Packs/Day [...] Description 06/28/2025 1:15 PM EDT Office Visit [facility] MATERNAL MEDICINE [address] [facility] [address] [place] [address] 06/28/2025 1:15 PM EDT Appointment [facility] US PER DIAG CTR [address] [place] [address] 06/28/2025 2:10 PM EDT Routine [facility] OBGYN 1700 [facility] [address] [place] [address] Chrissie Fernández MD [address] [address] 08/16/2025 3:30 PM EST Pre-Admission Testing [facility] PREADMISSION T [address] [place] [address] 08/17/2025 7:30 AM EST Hospital Encounter [facility] LABOR DELIVERY [address] [facility] [place] [address] Chrissie Fernández MD [address] [address] 08/17/2025 7:30 AM EST - 08/17/2025 8:30 AM EST Surgery [facility] LABOR DELIVERY [address] [facility] [place] [address] Chrissie Fernández MD [address] [address] SECTION REPEAT Scheduled Procedures Name Priority Associated Diagnoses Date/Ti me SECTION REPEAT 01/2025 7:30 AM EST documented as of this encounter Visit Diagnoses Not on filedocumented in this encounter Care Teams Pondman Relationship Specialty Start Date End Date Anna Diane MD [address] [place] [address] TUCKER Singh [address] PCP - General Nurse Practitioner 12/21/24 documented as of this encounter
--- OUTSIDE RECORDS SUMMARY | 2025-06-24 15:21 | XMS_ITS | Encounter Summary ---
Author Organization [facility] Address [address] [place] [address] Care Team Providers Care Optical Brightener Maker Helper Name Role Phone Emiliano Lutz MD Primary Care Provider [phone] Encounter Details Date Type Department Care Team (Late st Contact Info) Description 07/16/2023 Lab Requisition [facility] [address] [place] [address] Frank Calvillo MD [address] [place] [address] [place] [address] Hemorrhage of anus and rectum Social History Tobacco Use Types Packs/Day Years Used Date Smoking Tobacco: Never Alcohol Use Standard Drinks/Week Comments No 0 (1 standard drink = 0.6 oz pur e alcohol) Comments Unknown Sex and Gender Information Value Date Recorded Sex Assigned at Not on file Legal Sex Female 7:18 PM EDT Gender Identity Not on file Sexual Orientation Not on file documented as of this encounter Plan of Treatment Not on file documented as of this encounter Procedures Procedure Name Priority Date/Time Associated Diagnosis Comments SURGICAL PATHOLOGY CONSULT Routine 07/16/2023 1:17 PM EDT Hemorrhage of anus and rectum documented in this encounter Results * Surgical Pathology Consult (07/16/2023 1:17 PM EDT) Case Report Sugical Pathology Consult Case: [id number] Authorizing Provider: Frank Calvillo MD Collected: 07/16/2023 1317 Ordering Location: [facility] Received: 07/16/2023 1318 Pathologist: Mandie Land MD Specimen: Rectal, [id number] 9:50 AM EDT [facility] Final Diagnosis SMALL INTESTINE, TERMINAL ILEUM, BIOPSY (OUTSIDE: [id number]; COLLECTION: 07/12/2023): - ULCERATION WITH SEVERE ACUTE AND CHRONIC INFLAMMATION (SEE COMMENT). 9:50 AM EDT [facility] at 0949 EDT Comment Sections show areas of ulceration with severe acute and chronic inflammation and focal crypt disarray. The necrotic tissue contains one multinucleated giant cell but no well-formed granulomas are identified on the submitted biopsy. No viral cytopathic effects are seen. Special stains for organisms (AFB and GMS) are negative. The detailed clinical information is not available for this review. The findings are nonspecific but could be associated with the Crohn's disease in the proper clinical context. The features could also be associated with infection (e.g.: Yersinia infection). Other possible etiologies include NSAIDs associated ileitis although presence of multinucleated giant cell is somewhat unusual. Further clinical workup and correlation is recommended. 9:50 AM EDT [facility] Clinical Information K62.5 - Hemorrhage of anus and rectum [ICD-10-CM] Chronic diarrhea and rectal bleeding. Terminal ileitis noted with scarring of the ic valve, this is worrisome for IBD, multiple biopsies were obtained; normal appearing colonic mucosa; hemorrhoids. 9:50 AM EDT [facility] Special and Immunohistochemical Stains Special Stain: A2-1 GMS Negative A2-2 Acid Fast Bacteria Negative All controls show appropriate reactivity. All immunohistochemi stry, in situ hybridization, and histochemical tests were developed by and are performed at the [facility], [address] [place] [address]. All tests reported here, except those addressing HER2 (breast) and PD-L1 expression as predictive markers, have not been cleared by or approved by the US Food and Drug Administration (FDA). The FDA has determined that such clearance or approval is not necessary. The laboratory is regulated under CLIA as qualified to perform high-complexity testing. The tests are used for clinical purposes. They should not be regarded as investigational or for research. This assay has not been validated on decalcified tissues. Results should be interpreted with caution given the likelihood of false negativity on decalcified specimens. 3 9:50 AM EDT [facility] Gross Description A. [id number] Received along with a corresponding pathology report from [facility] are 2 slide(s) and 1 Block labeled outside case: [id number] collected on 07/12/2023. 3 9:50 AM EDT [facility] Note: A resident was involved in the service. I attest I examined the relevant preparations for the specimens and confirmed the diagnosis or interpretation. 3 9:50 AM EDT [facility] Tissue Specimen from rectum / Unknown 07/16/2023 1:17 PM EDT 07/16/2023 1:18 PM EDT us Frank Calvillo MD LAB PATHOLOGY ORDERABLES Marcella osei Result Performing Organization Address City/State/[facility] Co de Phone Number [facility] [address] [place] [address] documented in this encounter Visit Diagnoses Diagnosis Hemorrhage of anus and rectum Hemorrhage of rectum and anus documented in this encounter Care Teams Optical Brightener Maker Helper Relationship Specialty Start Date End Date Emiliano Lutz MD [address] [place] [address] PCP - General 02/24/21 documented as of this encounter
--- OUTSIDE RECORDS SUMMARY | 2025-06-24 15:21 | XMS_ITS | Encounter Summary ---
Author Organization [facility] Address [address] [place] [phone] Care Team Providers Care Accident Examiner Name Role Phone Anna Diane MD Primary Care Provider Reason for Visit * Reason Onset Date Comments DR. CHRISSIE FERNÁNDEZ-MUCUS PLUG 06/07/2025 Encounter Details Date Type Department Care Team (Late st Contact Info) Description 06/07/2025 Telephone [facility] OBGYN [address] [address] Chrissie Fernández MD [address] [place] [phone] CHRISSIE FERNÁNDEZ-MUCUS PLUG Social History Tobacco Use Types Packs/Day Years [...] on file documented as of this encounter Miscellaneous Notes * Telephone Encounter - Ciera Ngo RN - 06/07/2025 11:59 AM EDT [facility] patient 29w0d Patient called stating she lost pieces of her mucus plug yesterday at two different times. She reports last night she had lower back pain that lasted about 2 hours then went away. She states she is unsure if they are contractions. She reports drinking 68 oz of water yesterday. She has not had the back pain today. She is also reporting SOB today. She denies recent illness. She states she just feels like when she is active, she needs to go sit down to rest more. She reports increased swelling in bilateral legs and feet over the weekend. She denies MAGALLON, vision changes, or RUQ pain. She has hx of pre-e with prior . She reports good FM. She reported lower back pain at last visit on 05/31 and urine culture was sent and WNL. Her cervix was checked and was closed/thick. She has been using a belly band. She states the pain comes and goeslike contractions. Patient does not have a way to check BP at home at time of call. Will discuss with DIGITAL PRINT OPERATOR and call patient back. Per Keke, patient needs to be seen to r/o contractions and assess SOB. Patient does not have BP machine at home currently. She requests to be seen at [facility] office if possible. Appt made with Luz Elena Craig APRN at 245 PM. Patient VU * Telephone Encounter - Shae Garcia RegSched Rep - 06/07/2025 9:53 AM EDT Caller: Boris Deras Relationship: Self Best call back number: [phone] What is the best time to reach you: ANY Who are you requesting to speak with (clinical staff, provider, specific staff member): ANY Do you know the name of the person who called: BORIS DERAS What was the call regarding: PT SAID SHE JUST WANTED TO LET SOMEONE KNOW HER MUSCUS PLUG HAS COME OUT BUT NOT ALL OF IT. AND SOME OF IT COMES OUT LATER IN THE DAY. SHE IS 29WKS AND THIS HAS NEVER HAPPENED BEFORE IN PREVIOUS . Is it okay if the provider responds through MyChart: YES documented in this encounter Plan of Treatment Upcoming Encounters Date Type Department Care Team (Late st Contact Info) Description 06/28/2025 1:15 PM EDT Office Visit [facility] MATERNAL MEDICINE [address] [facility] [address] [place] [address] 06/28/2025 1:15 PM EDT Appointment [facility] US PER DIAG CTR [address] [place] [address] 06/28/2025 2:10 PM EDT Routine [facility] OBGYN [address] [address] Chrissie Fernández MD [address] [address] 08/16/2025 3:30 PM EST Pre-Admission Testing [facility] PREADMISSION T [address] [place] [address] 08/17/2025 7:30 AM EST Hospital Encounter [facility] LABOR DELIVERY [address] [facility] [place] [address] Chrissie Fernández MD [address] [address] 08/17/2025 7:30 AM EST - 08/17/2025 8:30 AM EST Surgery [facility] LABOR DELIVERY [address] [facility] [place] [address] Chrissie Fernández MD [address] [address] SECTION REPEAT Scheduled Procedures Name Priority Associated Diagnoses Date/Ti me SECTION REPEAT 01/2025 7:30 AM EST documented as of this encounter Visit Diagnoses Not on filedocumented in this encounter Care Teams Accident Examiner Relationship Specialty Start Date End Date Anna Diane MD [address] [facility] [place] [address] PCP - General Nurse Practitioner 12/21/24 documented as of this encounter
--- OUTSIDE RECORDS SUMMARY | 2025-06-24 15:21 | XMS_ITS | Encounter Summary ---
Author Organization [facility] Address [address] [place] [address] Care Team Providers Care Gynecologist Name Role Phone Anna Diane MD Primary Care Provider Encounter Details Date Type Department Care Team (Late st Contact Info) Description 02/07/2025 Results Follow-Up [facility] OBGYN [address] [place] [address] Chrissie Fernández MD [address]00 [facility] [address] [place] [address] Social History Tobacco Use Types Packs/Day Years [...] on file documented as of this encounter Progress Notes * Chrissie Fernández MD - 02/07/2025 6:54 PM EDT All normal documented in this encounter Plan of Treatment Upcoming Encounters Date Type Department Care Team (Late st Contact Info) Description 06/28/2025 1:15 PM EDT Office Visit [facility] MATERNAL MEDICINE [address]00 [facility] [address] [place] [address] 06/28/2025 1:15 PM EDT Appointment [facility] US PER DIAG CTR [address] [place] [address] 06/28/2025 2:10 PM EDT Routine [facility] OBGYN [address] [place] [phone] Chrissie Fernández MD [address] [address] 08/16/2025 3:30 PM EST Pre-Admission Testing [facility] PREADMISSION T [address] [place] [address] 08/17/2025 7:30 AM EST Hospital Encounter [facility] LABOR DELIVERY [address] [place] [address] Chrissie Fernández MD [address] [place] [phone] 08/17/2025 7:30 AM EST - 08/17/2025 8:30 AM EST Surgery [facility] LABOR DELIVERY 17[address] [facility] [place] [address] Chrissie Fernández MD [address] [address] SECTION REPEAT Scheduled Procedures Name Priority Associated Diagnoses Date/Ti me SECTION REPEAT 01/2025 7:30 AM EST documented as of this encounter Visit Diagnoses Not on filedocumented in this encounter Care Teams Gynecologist Relationship Specialty Start Date End Date Anna Diane MD [address] [facility] TUCKER Singh [address] PCP - General Nurse Practitioner 12/21/24 documented as of this encounter
--- OUTSIDE RECORDS SUMMARY | 2025-06-24 15:21 | XMS_ITS | Encounter Summary ---
Author Organization [facility] Address [address] [place] [phone] Care Team Providers Care Customer Response Representative Name Role Phone Anna Diane MD Primary Care Provider Encounter Details Date Type Department Care Team (Latest Contact Info) Description 05/31/2025 Travel Social History Tobacco Use Types Packs/Day [...] Office Visit [facility] MATERNAL MEDICINE 1700 [facility] [address] [place] [address] 06/28/2025 1:15 PM EDT [facility]ointment [facility] [address] [place] [address] 06/28/2025 2:10 PM EDT Routine [facility] OBGYN 1700 [facility] [address] [place] [address] Chrissie Fernández MD [address] [address] 08/16/2025 3:30 PM EST Pre-Admission Testing [facility] PREADMISSION T [address] [place] [address] 08/17/2025 7:30 AM EST Hospital Encounter [facility] [address] [facility] [place] [address] Chrissie Fernández MD [address] [address] 08/17/2025 7:30 AM EST - 08/17/2025 8:30 AM EST Surgery [facility] [address] [facility] [place] [place] [address] Chrissie Fernández MD [address] [address] SECTION REPEAT Scheduled Procedures Name Priority Associated Diagnoses Date/Ti me SECTION REPEAT 01/2025 7:30 AM EST documented as of this encounter Visit Diagnoses Not on filedocumented in this encounter Care Teams Customer Response Representative Relationship Specialty Start Date End Date Anna Diane MD [address] [place] [address] TUCKER Singh [address] PCP - General Nurse Practitioner 12/21/24 documented as of this encounter
--- OUTSIDE RECORDS SUMMARY | 2025-06-24 15:21 | XMS_ITS | Encounter Summary ---
[facility] Address [address] [place] [id number] Care Team Providers Care Aerospace Engineer Name Role Phone Anna Diane MD Primary Care Provider Encounter Details Date Type Department Care Team (Late st Contact Info) Description 05/25/2025 Telephone [facility] OBGYN [address] [address] Chrissie Fernández MD [address] [place] [id number] Social History Tobacco Use Types Packs/Day Years [...] encounter Miscellaneous Notes * Telephone Encounter - Yanely Rodriguez APRN - 05/25/2025 4:24 PM EDT 27w1d Intermittent d/c with vaginal burning, pain on right side, possibly leaking fluid, constantlychanging underwear. Panties are wet sometimes with discharge (green/yellow) and sometimes wet without d/c. Pain is intermittent, lower pelvic pain on right side. Rated 8/10. Worse in the middle of day to evening, then goes away. No vaginal or fluid smell. Denies DFM and vaginal bleeding. Discussed need for evaluation. The time is 4:30pm. She lives an hour away. Instructed to go to [facility] for evaluation. * Telephone Encounter - Kimberly Catherine RegSched Rep - 05/25/2025 4:18 PM EDT Pt called and stated she is 28 weeks and states for the past 3 weeks she has been having yellow and green discharge along with burning. Pt also states she has had pain on her right side and today her discharge has been more liquid than discharge consistency documented in this encounter Plan of Treatment Upcoming Encounters Date Type Department Care Team (Late st Contact Info) Description 06/28/2025 1:15 PM EDT Office Visit [facility] MATERNAL MEDICINE [address] [address] 06/28/2025 1:15 PM EDT Appointment [facility] US PER DIAG CTR [address] [place] [address] 06/28/2025 2:10 PM EDT Routine [facility] OBGYN [address] [address] Chrissie Fernández MD [address] [address] 08/16/2025 3:30 PM EST Pre-Admission Testing [facility] PREADMISSION T [address] [place] [address] 08/17/2025 7:30 AM EST Hospital Encounter [facility] LABOR DELIVERY [address] [place] [address] Chrissie Fernández MD 1700 [facility] [address] [place] [address] 08/17/2025 7:30 AM EST - 08/17/2025 8:30 AM EST Surgery [facility] LABOR DELIVERY [address] [place] [address] Chrissie Fernández MD [address] [address] SECTION REPEAT Scheduled Procedures Name Priority Associated Diagnoses Date/Ti me SECTION REPEAT 01/2025 7:30 AM EST documented as of this encounter Visit Diagnoses Not on filedocumented in this encounter Care Teams Aerospace Engineer Relationship Specialty Start Date End Date Anna Diane MD [address] [place] [address] [place] Singh [address] PCP - General Nurse Practitioner 12/21/24 documented as of this encounter
--- OUTSIDE RECORDS SUMMARY | 2025-06-24 15:21 | XMS_ITS | Encounter Summary ---
[facility] Address [address] [place] [address] Care Team Providers Care Optical Mechanic Apprentice Name Role Phone Anna Diane MD Primary Care Provider [phone] Encounter Details Date Type Department Care Team (Late st Contact Info) Description 06/01/2025 Results Follow-Up [facility] OBGYN [address] [place] [address] Luz Elena Craig, ACTION INSTALLER 1700 [facility] [address] [place] [address] Social History Tobacco Use Types Packs/Day Years [...] [facility] MATERNAL MEDICINE 1700 [facility] 703 [place] [address] 06/28/2025 1:15 PM EDT Appointment [facility] US PER DIAG CTR 1700 [place] [address] 06/28/2025 2:10 PM EDT Routine [facility] OBGYN [address] [facility] [address] [place] [address] Chrissie Fernández MD [address] [address] 08/16/2025 3:30 PM EST Pre-Admission Testing [facility] PREADMISSION T [address] [place] [address] 08/17/2025 7:30 AM EST Hospital Encounter [facility] LABOR DELIVERY [address] [place] [address] Chrissie Fernández MD [address] [address] 08/17/2025 7:30 AM EST - 08/17/2025 8:30 AM EST Surgery [facility] LABOR DELIVERY 1700 [place] [address] Chrissie Fernández MD [address] [address] SECTION REPEAT Scheduled Procedures Name Priority Associated Diagnoses Date/Ti me SECTION REPEAT 01/2025 7:30 AM EST documented as of this encounter Visit Diagnoses Not on filedocumented in this encounter Care Teams Optical Mechanic Apprentice Relationship Specialty Start Date End Date Anna Diane MD [address] [place] [address] [place] Singh [address] PCP - General Nurse Practitioner 12/21/24 documented as of this encounter
--- OUTSIDE RECORDS SUMMARY | 2025-06-24 15:21 | XMS_ITS | Clinical Summary ---
Author Organization Healthcare Address [address] [phone] Care Team Providers Care Dish Person Name Role Phone Emiliano Lutz MD Primary Care Provider [phone] Family History Medical History Relation Name Comments Cardiac disorder Other 1 Diabetes Other 2 Hypertension Other 3 Relation Name Status Comments Other 1 Other 2 Other 3 Social History Tobacco Use Types Packs/Day Years [...] Sign Reading Time Taken Comments Blood Pressure 119/69 07/03/2019 7:45 AM EDT Pulse 71 07/03/2019 7:45 AM EDT Temperature 36.7 C (98.1 F) 07/03/2019 7:45 AM EDT Respiratory Rate - - Oxygen Saturation - - Inhaled Oxygen Concentration - - Weight 72.8 kg (160 lb 7.6 oz) 07/03/2019 7:45 A M EDT Height 160 cm (5' 3 ) 07/03/2019 7:45 AM EDT Body Mass Index 28.43 07/03/2019 7:45 AM EDT Plan of Treatment Not on file Insurance [facility] MEDICAID Care Teams Dish Person Relationship Specialty Start Date End Date Emiliano Lutz MD [address] [place] [address] PCP - General 02/24/21
--- OUTSIDE RECORDS SUMMARY | 2025-06-24 15:21 | XMS_ITS | Encounter Summary ---
Author Organization [facility] Address [address] [place] [address] Care Team Providers Care Stave Planer Tender Name Role Phone Anna Diane MD Primary Care Provider Encounter Details Date Type Department Care Team (Latest Contact Info) Description 05/25/2025 Travel Social History Tobacco Use Types Packs/Day [...] on file documented as of this encounter Functional Status * Question Answer [...] 6:58 PM EDT Kimberly Ng RN * [place] Suicide Severity Rating Scale (Screener/Recent Self-Report) Question Answer Date of Assessment Author 6. Suicidal Behavior (Lifetime) No 05/25/2025 6:58 PM EDT Rozina Lowery RN documented as of this encounter Plan of Treatment Upcoming Encounters Date Type Department Care Team (Late st Contact Info) Description 06/28/2025 1:15 PM EDT Office Visit [facility] MATERNAL MEDICINE [address] [address] 06/28/2025 1:15 PM EDT Appointment [facility] US PER DIAG CTR 1700 [place] [address] 06/28/2025 2:10 PM EDT Routine [facility] OBGYN [address] [address] Chrissie Fernández MD [address] [address] 08/16/2025 3:30 PM EST Pre-Admission Testing [facility] PREADMISSION T [address] [place] [address] 08/17/2025 7:30 AM EST Hospital Encounter [facility] LABOR DELIVERY 1700 [facility] [address] Chrissie Fernández MD [address] [address] 08/17/2025 7:30 AM EST - 08/17/2025 8:30 AM EST Surgery [facility] LABOR DELIVERY 1700 [facility] [address] Chrissie Fernández MD [address] [address] SECTION REPEAT Scheduled Procedures Name Priority Associated Diagnoses Date/Ti me SECTION REPEAT 01/2025 7:30 AM EST documented as of this encounter Visit Diagnoses Not on filedocumented in this encounter Care Teams Stave Planer Tender Relationship Specialty Start Date End Date Anna Diane MD [address] [facility] [address] [place], [place] [address] PCP - General Nurse Practitioner 12/21/24 documented as of this encounter
--- OUTSIDE RECORDS SUMMARY | 2025-06-24 15:22 | XMS_ITS | Encounter Summary ---
Author Organization [facility] Address [address] [place] [id number] Care Team Providers Care School Librarian Name Role Phone Anna Diane MD Primary Care Provider Encounter Details Date Type Department Care Team (Late st Contact Info) Description 01/04/2025 Results Follow-Up [facility] OBGYN 1700 [facility] 701 [place] [address] Jackeline Cote, PUMPER GAUGER 1700 [facility] [address] [place] [address] Social History Tobacco Use Types Packs/Day Years Used Date Smoking Tobacco: Never Alcohol Use Standard Drinks/Week Comments Not Currently 0 (1 standard drink = 0.6 oz pur e alcohol) occ Comments Unknown Sex and Gender Information Value Date Recorded Sex Assigned at Not on file Legal Sex Female 8:40 AM EDT Gender Identity Not on file Sexual Orientation Not on file documented as of this encounter Plan of Treatment Upcoming Encounters Date Type Department Care Team (Late st Contact Info) Description 06/28/2025 1:15 PM EDT Office Visit [facility] MATERNAL MEDICINE 1700 [facility] Y[facility]ET [address]03 [place] [address] 06/28/2025 1:15 PM EDT Appointment [facility] US PER DIAG CTR 1700 [place] [address] 06/28/2025 2:10 PM EDT Routine [facility] OBGYN [address] [facility] [address] Chrissie Fernández MD [address] [address] 08/16/2025 3:30 PM EST Pre-Admission Testing [facility] PREADMISSION T [address] [facility] [address] 08/17/2025 7:30 AM EST Hospital Encounter [facility] LABOR DELIVERY 1700 [place] [address] Chrissie Fernández MD [address] [address] 08/17/2025 7:30 AM EST - 08/17/2025 8:30 AM EST Surgery [facility] LABOR DELIVERY [address] [facility] [place] [address] Chrissie Fernández MD [address] [address] SECTION REPEAT Scheduled Procedures Name Priority Associated Diagnoses Date/Ti me SECTION REPEAT 01/2025 7:30 AM EST documented as of this encounter Visit Diagnoses Not on filedocumented in this encounter Care Teams School Librarian Relationship Specialty Start Date End Date Anna Diane MD [address] [place] [address] [place] Singh [address] PCP - General Nurse Practitioner 12/21/24 documented as of this encounter
--- OUTSIDE RECORDS SUMMARY | 2025-06-24 15:22 | XMS_ITS | Encounter Summary ---
[facility] Organization [facility] Address [address] [place] [id number] Care Team Providers Care Resilient Tile Installer Name Role Phone Anna Diane MD Primary Care Provider Encounter Details Date Type Department Care Team (Late st Contact Info) Description 01/09/2025 Results Follow-Up [facility] OBGYN 1700 [facility] [address] [place] [address] Jackeline Cote, TABLET TESTER 1700 [facility] [address] [place] [address] Social History Tobacco Use Types Packs/Day Years [...] 1:15 PM EDT Office Visit [facility] MATERNAL MEDICINE 1700 [facility] YANET 703 [place] [address] 06/28/2025 1:15 PM EDT Appointment [facility] US PER DIAG CTR 1700 [place] [address] 06/28/2025 2:10 PM EDT Routine [facility] OBGYN [address] [address] Chrissie Fernández MD [address] [address] 08/16/2025 3:30 PM EST Pre-Admission Testing [facility] PREADMISSION T [address] [place] [address] 08/17/2025 7:30 AM EST Hospital Encounter [facility] LABOR DELIVERY [address] [place] [address] Chrissie Fernández MD [address] [address] 08/17/2025 7:30 AM EST - 08/17/2025 8:30 AM EST Surgery [facility] LABOR DELIVERY 1700 [facility] [place] [address] Chrissie Fernández MD [address] [address] SECTION REPEAT Scheduled Procedures Name Priority Associated Diagnoses Date/Ti me SECTION REPEAT 01/2025 7:30 AM EST documented as of this encounter Visit Diagnoses Diagnosis Urinary tract infection in mother during first trimester of - Primary documented in this encounter Care Teams Resilient Tile Installer Relationship Specialty Start Date End Date Anna Diane MD [address] [place] [address] [place] [address] PCP - General Nurse Practitioner 12/21/24 documented as of this encounter
--- OUTSIDE RECORDS SUMMARY | 2025-06-24 15:22 | XMS_ITS | Encounter Summary ---
[facility] Address [address] [place] [address] Care Team Providers Care Lining Feller Blindstitch Name Role Phone Anna Diane MD Primary Care Provider Encounter Details Date Type Department Care Team (Late st Contact Info) Description 03/15/2025 Results Follow-Up [facility] OBGYN [address] [place] [address] Luz Elena Craig, PLAYER DEVELOPMENT EXECUTIVE 1700 [facility] 701 [place] [address] Social History Tobacco Use Types Packs/Day Years [...] Description 06/28/2025 1:15 PM EDT Office Visit [facility] MATERNAL MEDICINE 1700 [facility] 703 [place] [address] 06/28/2025 1:15 PM EDT Appointment [facility] US PER DIAG CTR 1700 [place] [address] 06/28/2025 2:10 PM EDT Routine [facility] [address] [place] [address] Chrissie Fernández MD [address] [address] 08/16/2025 3:30 PM EST Pre-Admission Testing [facility] PREADMISSION T [address] [place] [address] 08/17/2025 7:30 AM EST Hospital Encounter [facility] LABOR DELIVERY [address] [place] [address] Chrissie Fernández MD [address] [address] 08/17/2025 7:30 AM EST - 08/17/2025 8:30 AM EST Surgery [facility] LABOR DELIVERY 1700 [facility] [place] [address] Chrissie Fernández MD [address] [address] SECTION REPEAT Scheduled Procedures Name Priority Associated Diagnoses Date/Ti me SECTION REPEAT 01/2025 7:30 AM EST documented as of this encounter Visit Diagnoses Not on filedocumented in this encounter Care Teams Lining Feller Blindstitch Relationship Specialty Start Date End Date Anna Diane MD [address] [place] [address] [place] Singh [address] PCP - General Nurse Practitioner 12/21/24 documented as of this encounter
--- OUTSIDE RECORDS SUMMARY | 2025-06-24 15:22 | XMS_ITS | Encounter Summary ---
Author Organization [facility] Address [address] [place] [phone] Care Team Providers Care Rehabilitation Clerk Name Role Phone Anna Diane MD Primary Care Provider Encounter Details Date Type Department Care Team (Late st Contact Info) Description 01/28/2025 Results Follow-Up [facility] OBGYN 1700 [facility] [address] [place] [phone] Karen Turk, GLASS TECHNOLOGIST 1700 [facility] 701 [place] [address] Social History Tobacco Use Types Packs/Day Years [...] Description 06/28/2025 1:15 PM EDT Office Visit [facility] MATERNAL MEDICINE 1700 [facility] 703 [place] [address] 06/28/2025 1:15 PM EDT Appointment [facility] US PER DIAG CTR 1700 [place] [address] 06/28/2025 2:10 PM EDT Routine [facility] OBGYN [address] [address] Chrissie Fernández MD [address] [address] 08/16/2025 3:30 PM EST Pre-Admission Testing [facility] PREADMISSION T [address]40 [facility] [place] [address] 08/17/2025 7:30 AM EST Hospital Encounter [facility] LABOR DELIVERY 1700 [facility] [address] Chrissie Fernández MD [address] [address] 08/17/2025 7:30 AM EST - 08/17/2025 8:30 AM EST Surgery [facility] LABOR DELIVERY 17[address] [facility] [address] Chrissie Fernández MD [address] [address] SECTION REPEAT Scheduled Procedures Name Priority Associated Diagnoses Date/Ti me SECTION REPEAT 01/2025 7:30 AM EST documented as of this encounter Visit Diagnoses Not on filedocumented in this encounter Care Teams Rehabilitation Clerk Relationship Specialty Start Date End Date Anna Diane MD [address] [place] [address] [place] [address] PCP - General Nurse Practitioner 12/21/24 documented as of this encounter
[2025-06-24 15:33] VITALS: BP 117/80; PULSE 101; RESP 18; TEMP 36.9; O2SAT 98; BMI 33.1
--- NOTE | 2025-06-24 17:15 | US_ITS ---
PROCEDURE INFORMATION: Exam: US , Limited and US , Transvaginal Exam date and time: 06/24/2025 5:51 PM Clinical indication: Other: Dec movement; ; Additional info: Decreased movement TECHNIQUE: Imaging protocol: Real-time ultrasound of the maternal uterus with image documentation. Transvaginal imaging was used for better evaluation of the fetus, adnexa, and/or cervix. Exam focused on the clinical indication. COMPARISON: No relevant prior studies available. FINDINGS: Gestation: Single intrauterine gestation. heart rate: 132 bpm presentation and position: Cephalic. Placenta: Posterior location. Low-lying measuring 0.87 cm to the internal cervical os. No retroplacental bleed. Amniotic fluid index: 14.28 cm MATERNAL: Cervix: Measures 3.5 cm in length. Closed. IMPRESSION: 1. Single intrauterine gestation in cephalic presentation. 2. Low-lying placenta. PROCEDURE INFORMATION: Exam: US Biophysical Profile Without Non-Stress Test Exam date and time: 06/24/2025 5:51 PM Age: 25 years old Clinical indication: Other: Dec movement; ; Additional info: Decreased movement TECHNIQUE: Imaging protocol: US biophysical profile without non-stress testing. COMPARISON: US OB BIOPHYSICAL PROFILE 01/11/2023 2:47 PM FINDINGS: BIOPHYSICAL PROFILE: breathing (BPP): 2 out of 2. gross body movement (BPP): 2 out of 2. tone (BPP): 2 out of 2. Amniotic fluid (BPP): 2 out of 2. IMPRESSION: Biophysical profile score is 8 out of 8.
== END 2025-06-24 18:43 | disposition home or self-care (01) ==
LOC: OBOUT 15:18 → OB 15:27
PROVIDERS: PCP Nurse Practitioner Family; Visit Provider Obstetrics & Gynecology
DX: O36.8130 Decreased fetal movements, third trimester, not applicable or unspecified (principal); O44.43 Low lying placenta NOS or without hemorrhage, third trimester; Z3A.32 32 weeks gestation of pregnancy
CPT/HCPCS: 59025; 76819; 99212; G0463

== ENCOUNTER 2025-07-27 16:11 | Outpatient (CLI) | payer MEDICAID, SELFPAY ==
--- OUTSIDE RECORDS SUMMARY | 2025-05-31 10:30 | XMS_ITS | Encounter Summary ---
[facility] Address [address] [place] [address] Care Team Providers Care Insurance Coordinator Name Role Phone Anna Diane MD Primary Care Provider Reason for Visit * Reason Comments Routine Visit Encounter Details Date Type Department Care Team (Late st Contact Info) Description 05/31/2025 10:30 AM EDT Routine [facility] OBGYN [address] [place] [address] Luz Elena Craig, ASSOCIATE PROFESSOR OF LAW [address] [facility] [address] [place] [address] GA: 28w0d Social History Tobacco Use Types Packs/Day Years [...] Sign Reading Time Taken Comments Blood Pressure 122/86 05/31/2025 11:07 AM EDT Pulse - - Temperature - - Respiratory Rate - - Oxygen Saturation - - Inhaled Oxygen Concentration - - Weight 84.4 kg (186 lb) 05/31/2025 11:07 AM EDT Height - - Body Mass Index 32.95 01/01/2025 11:33 AM EDT documented in this encounter Progress Notes * Luz Elena Craig, ASSOCIATE PROFESSOR OF LAW - 05/31/2025 10:30 AM EDT Images from the original note were not included. OB FOLLOW UP CC- Here for care of Boris Deras is a 25 y.o. 28w0d patient being seen today for her obstetrical followup. Patient reports patient reports a sharp pain that is staring in her lower back on the right side and radiates to her lower right pelvic area. Patient undergoing Glucola testing today. She is due for her testing at 11:26am. MBT: O+ Rhogam: is not indicated. 28 week packet: reviewed with patient , counseled on movement , breast pump discussed, and childbirth classes reviewed TDAP: given today Flu Status: Declines Ultrasound Today: No Does patient need tubal consent or consent signed? no Her care is complicated by (and status) : see below. Patient Active Problem List Diagnosis Crohn's disease Herpes simplex Lupus erythematosus Family history of congenital heart defect Hx of preeclampsia, prior , currently Family history of autosomal aneuploidy Choroid plexus cysts, , affecting care of mother, antepartum Second trimester Previous section ROS - Patient Denies: Loss of Fluid, Vaginal Spotting, Vision Changes, Headaches, Nausea , Vomiting , Contractions, and skin itching Movement : normal Other than what is documented in the HPI, all other systems reviewed and are negative. The additional following portions of the patient's history were reviewed and updated as appropriate: allergies, current medications, past family history, past medical history, past social history, past surgical history, and problem list. I have reviewed and agree with the HPI, ROS, and historical information as entered above. Luz Elena Chaney, ASSOCIATE PROFESSOR OF LAW BP 122/86 Wt 84.4 kg (186 lb) LMP 11/16/2024 (Exact Date) BMI 32.95 kg/m?? EXAM: Vitals BP: 122/86 Weight: 84.4 kg (186 lb) Heart Rate: pos Dilation/Effacement/Station Dilation: Closed Effacement (%): 0 Station: -3 Fundal Height (cm): 29 cm Urine Glucose Read-only: Negative Urine Protein Read-only: (!) 1+ Assessment and Plan Problem List Items Addressed This Visit None Visit Diagnoses 28 weeks gestation of - Primary Relevant Orders Antibody Screen CBC (No Diff) Gestational Screen 1 Hr ([facility]) RPR Qualitative with Reflex to Quant Tdap Vaccine Greater Than or Equal To 7yo IM (Completed) POC Urinalysis Dipstick (Completed) Urine Culture - Urine, Urine, Clean Catch Third trimester Back pain affecting Flank pain CCUA repeated and blood only was noted. Urine sent for culture. Discussed could be kidney stone or MS discomforts of . I advised tylenol, push fluids, heat to back. To L&D for severe pain or fever. Cervix closed/thick. Can try belly band at 28w0d 1 hr Glucola, CBC, RPR. Antibody screen and TDAP today movement/PTL or Labor precautions Activity and Exercise discussed. Return for Next scheduled follow up with PDC and KRISTAL. Total time spent today with Boris was 30 minutes (level 4). Off this time, > 50% was spent [id number] time coordinating care, answering her questions and counseling regarding pathophysiology ofher presenting problem along with plans for any diagnositc work-up and treatment. Luz Elena Craig APRN 05/31/2025 documented in this encounter Plan of Treatment Upcoming Encounters Date Type Department Care Team (Late st Contact Info) Description 07/28/2025 3:00 PM EDT Routine [facility] OBGYN [address] [place] [phone] Karen Turk, ASSOCIATE PROFESSOR OF LAW [address] [address] 08/05/2025 10:20 AM EDT Routine [facility] OBGYN [address] [place] [phone] Chrissie Fernández MD [address] [address] 08/16/2025 3:30 PM EST Pre-Admission Testing [facility] PREADMISSION T [address] [place] [address] 08/17/2025 7:30 AM EST Hospital Encounter [facility] LABOR DELIVERY [address] [place] [address] Chrissie Fernández MD [address] [address] 08/17/2025 7:30 AM EST - 08/17/2025 8:30 AM EST Surgery [facility] LABOR DELIVERY [address] [place] [address] Chrissie Fernández MD [address] [address] SECTION REPEAT Scheduled Procedures Name Priority Associated Diagnoses Date/Ti me SECTION REPEAT 01/2025 7:30 AM EST documented as of this encounter Procedures Procedure Name Priority Date/Time Associated Diagnosis Comments URINE CULTURE Routine 05/31/2025 12:00 PM EDT 28 weeks gestation of POCT URINALYSIS DIPSTICK, MANUAL Routine 05/31/2025 11:44 AM EDT 28 weeks gestation of GESTATIONAL SCREEN 1 HR Routine 05/31/2025 11:29 AM EDT 28 weeks gestation of RPR Routine 05/31/2025 11:29 AM EDT 28 weeks gestation of CBC (NO DIFF) Routine 05/31/2025 11:29 AM EDT 28 weeks gestation of ANTIBODY SCREEN Routine 05/31/2025 11:29 AM EDT 28 weeks gestation of documented in this encounter Results * Urine Culture - Urine, Urine, Clean Catch (05/31/2025 12:00 PM EDT) Urine Culture Final report [facility] Result 1 Comment [facility] Comment: Culture shows less than 10,000 colony forming units of bacteria per milliliter of urine. This colony count is not generally considered to be clinically significant. Urine Urine specimen obtained by clean catch procedure / Unknown 05/31/2025 12:00 PM EDT 05/31/2025 Comment:UC Narrative [facility] ([facility]BULATORY) - 06/02/2025 6:09 AM EDT Performed at: - Lab[address] [id number] Single End Sewer: Oscar Purdy PhD, Phone: [phone] Patient Fasting: N Luz Elena Craig ASSOCIATE PROFESSOR OF LAW MICROBIOLOGY - GENERAL OR DERABLES Final Result Performing Organization Address City/State/[facility] [[email or web address]] Co de Phone Number [facility] [employer] [place] (AMBULATORY) [address] [place] [address], [place] [phone] [facility] [address] [place] [address], [place] [phone] * (ABNORMAL) POC Urinalysis Dipstick (05/31/2025 11:44 AM EDT) Color Yellow Yellow, Straw, Dark Yellow, Adali [facility] Clarity, UA Clear Clear [facility] Glucose, UA Negative Negative mg/dL [facility] Bilirubin Negative Negative [facility] Ketones, UA 1+(A) Negative [facility] Specific [place] 1.010 1.005 - 1.030 [facility] Blood, UA 2+(A) Negative [facility] pH, Urine 6.5 5.0 - 8.0 [facility] Protein, POC 1+(A) Negative mg/dL [facility] Urobilinogen, UA Normal Normal, 0.2 E.U./dL [facility] Leukocytes Small (1+)(A) Negative [facility] Nitrite, UA Negative Negative [facility] Urine 05/31/2025 11:4 4 AM EDT Luz Elena Craig ASSOCIATE PROFESSOR OF LAW POINT OF CARE TEST ORDERA BLES Final Result [facility]
[address] [place] [address], * RPR Qualitative with Reflex to Quant (05/31/2025 11:29 AM EDT) Pathologist [facility] RPR Non Reactive Non Reactive [facility] Blood 05/31/2025 11:2 9 AM EDT 05/31/2025 Narrative [facility] ([facility]) - 06/01/2025 10:10 AM EDT Performed at: [address] [place] [id number] Single End Sewer: Oscar Purdy PhD, Phone: [phone] Patient Fasting: N Luz Elena Craig ASSOCIATE PROFESSOR OF LAW LAB BLOOD ORDERABLES Marcella l Result Performing Organization Address City/[facility]/ZIP Co de Phone Number [facility] (AMBULATORY) [address] [place] [address], [place] [phone] [facility] [address] [place] [address], [place] [phone] * Gestational Screen 1 Hr ([facility]) (05/31/2025 11:29 AM EDT) [facility] Gestational Diabetes Screen 111 65 - 139 mg/dL [facility] Blood 05/31/2025 11:2 9 AM EDT 05/31/2025 Narrative [facility] ([facility]) - 05/31/2025 8:09 PM EDT Performed at: [address] [place] [id number] Single End Sewer: Yakov South MD, Phone: [phone] Patient Fasting: N Luz Elnea Craig ASSOCIATE PROFESSOR OF LAW LAB BLOOD ORDERABLES Marcella l Result [facility] (AMBULATORY) [address] [place] [address], [facility] [address] [place] [address], * (ABNORMAL) CBC (No Diff) (05/31/2025 11:29 AM EDT) [facility] WBC 8.32 3.40 - 10.80 10*3/mm3 [facility] RBC 3.74(L) 3.77 - 5.28 10*6/mm3 [facility] Hemoglobin 10.7(L) 12.0 - 15.9 g/dL [facility] Hematocrit 33.4(L) 34.0 - 46.6 % [facility] MCV 89.3 79.0 - 97.0 fL [facility] MCH 28.6 26.6 - 33.0 pg [facility] MCHC 32.0 31.5 - 35.7 g/dL [facility] RDW 12.7 12.3 - 15.4 % [facility] Platelets 218 140 - 450 10*3/mm3 [facility] Blood 05/31/2025 11:2 9 AM EDT 05/31/2025 Narrative [facility] ([facility]) - 06/01/2025 7:09 AM EDT Performed at: [address] [place] [id number] Single End Sewer: Yakov South MD, Phone: [phone] Patient Fasting: N Luz Elena Craig ASSOCIATE PROFESSOR OF LAW LAB BLOOD ORDERABLES Marcella l Result [facility] (AMBULATORY) [address] [place] [address], [place] [phone] [facility] [address] [place] [address], [place] [phone] * Antibody Screen (05/31/2025 11:29 AM EDT) [facility] Antibody Screen Negative Negative [facility] Blood 05/31/2025 11:2 9 AM EDT 05/31/2025 Narrative [facility] ([facility]) - 06/01/2025 8:11 AM EDT Performed at: [facility] - [facility] [address] [place] [id number] Single End Sewer: Oscar Purdy PhD, Phone: [phone] Patient Fasting: N Luz Elena Craig ASSOCIATE PROFESSOR OF LAW BLOOD BANK TEST ORDERABLE S Final Result [facility] ([facility]) [address] [place] [address], [place] [phone] [facility] [address] [place] [address], [place] [phone] documented in this encounter Visit Diagnoses Diagnosis 28 weeks gestation of - Primary Third trimester state, incidental Back pain affecting Flank pain Abdominal pain, unspecified site documented in this encounter Care Teams Insurance Coordinator Relationship Specialty Start Date End Date Anna Diane MD [address] [place] [address] [place] [address] PCP - General Nurse Practitioner 12/21/24 documented as of this encounter
--- OUTSIDE RECORDS SUMMARY | 2025-06-07 14:45 | XMS_ITS | Encounter Summary ---
[facility] Address [address] [place] [address] Care Team Providers Care Fluoroscope Operator Name Role Phone Anna Diane MD Primary Care Provider Reason for Visit * Reason Comments Non-stress Test Problem Encounter Details Date Type Department Care Team (Late st Contact Info) Description 06/07/2025 2:45 PM EDT Routine [facility] OBGYN [address] [place] [address] Luz Elena Craig, FLIGHT DECK OFFICER 1700 [facility] [address] [place] [address] GA: 29w0d Social History Tobacco Use Types [...] Progress Notes * Luz Elena Craig Alonso, FLIGHT DECK OFFICER - 06/07/2025 2:45 PM EDT Images from [...] Info) Description 07/28/2025 3:00 PM EDT Routine [facility] OBGYN [address] [place] [address] Karen Turk, FLIGHT DECK OFFICER [address] [place] [address] 08/05/2025 10:20 AM EDT Routine [facility] OBGYN [address] [place] [address] Chrissie Fernández MD [address] [address] 08/16/2025 3:30 PM EST Pre-Admission Testing [facility] PREADMISSION T [address] [place] [address] 08/17/2025 7:30 AM EST Hospital Encounter [facility] LABOR DELIVERY [address] [place] [address] Chrissie Fernández MD 1700 [facility] [address] [place] [address] 08/17/2025 7:30 AM EST - 08/17/2025 8:30 AM EST Surgery [facility] LABOR DELIVERY [address] [place] [address] Chrissie Fernández MD [facility] [facility] [address] [address] SECTION REPEAT Scheduled Procedures Name Priority Associated [...] Color Yellow Yellow, Straw, Dark Yellow, Adali [facility] Clarity, UA Clear Clear [facility] Glucose, UA Negative Negative mg/dL [facility] Bilirubin Negative Negative [facility] Ketones, UA Trace(A) Negative [facility] Specific [place] 1.015 1.005 - 1.030 [facility] Blood, UA Negative Negative [facility] pH, Urine 6.0 5.0 - 8.0 [facility] Protein, POC Negative Negative mg/dL [facility] Urobilinogen, UA Normal Normal, 0.2 E.U./dL [facility] Leukocytes Negative Negative [facility] Nitrite, UA Negative Negative [facility] Urine 06/07/2025 3:36 PM EDT Luz Elena Craig FLIGHT DECK OFFICER POINT OF CARE TEST ORDERA BLES Final Result [facility]
[address] [place] [address], * Urine Culture - Urine, Urine, Clean Catch (06/07/2025 3:30 PM EDT) [facility] Urine Culture Final report [facility] Result 1 Comment [facility] Comment: Mixed urogenital rodo Less than 10,000 colonies/mL Urine Urine specimen obtained by clean catch procedure / Unknown 06/07/2025 3:30 PM EDT 06/07/2025 Comment: Narrative [facility] - 06/09/2025 6:09 AM EDT Performed at: 01 - [address] [id number] Nurse Informaticist: Oscar Purdy PhD, Phone: [phone] Patient Fasting: N Luz Elena Craig FLIGHT DECK OFFICER MICROBIOLOGY - GENERAL OR DERABLES Final Result Performing Organization Address City/[facility]/ZIP Co de Phone Number [facility] [address] [place] [address], [place] [phone] [facility] [address] [place] [address], [place] [phone] * Procedure Scanned (06/07/2025) us Luz Elena M Kiara FLIGHT DECK OFFICER PROCEDURE/MINOR SURGICAL ORDERABLES Final Result documented in this encounter Visit Diagnoses Diagnosis care, subsequent in third trimester- Primary Shortness of breath due to Back pain affecting documented in this encounter Care Teams Fluoroscope Operator Relationship Specialty Start Date End Date Anna Diane MD 7 [facility] [place] [address] PCP - General Nurse Practitioner 12/21/24 documented as of this encounter
--- OUTSIDE RECORDS SUMMARY | 2025-06-28 12:49 | XMS_ITS | Encounter Summary ---
Author Organization [facility] Address [address] [place] [id number] Care Team Providers Care Reel Slitter Name Role Phone Anna Diane MD Primary Care Provider [phone] Reason for Referral * Diagnostic Imaging (Routine) - Closed Specialty Diagnoses / Procedures Referred By Contac t Referred To Contact Radiology Diagnoses Family history of congenital heart defect Procedures [facility] Brandan Taylor MD [address] [place] [address] Phone: tel: fax: Referral ID Status Reason Start Date Expiration Date Visits Re quested Visits Authorized [id number] Closed 05/03/2025 08/02/2026 1 1 Reason for Visit * Diagnostic Imaging (Routine) - Closed Specialty Diagnoses / Procedures Referred By Contac t Referred To Contact Radiology Diagnoses Family history of congenital heart defect Procedures [facility] [place] Brandan Taylor MD [address] [place], [place] [address] Phone: tel: fax: Referral ID Status Reason Start Date Expiration Date Visits Re quested Visits Authorized [id number] Closed 05/03/2025 08/02/2026 1 1 Encounter Details Date Type Department Care Team (Late st Contact Info) Description 06/28/2025 12:49 PM EDT - 06/28/2025 11:59 PM EDT Hospital Encounter [facility] [address] [place] [id number] Brandan Taylor MD [address] [place] [address] Family history of congenital heart defect Discharge Disposition: Home or Self Care Social [...] Times a Day. 60 tablet 2 04/13/2025 ferrous sulfate 325 (65 FE) MG tablet Take 1 tablet by mouth Daily With Breakfast. 30 tablet 2 06/01/2025 fluticasone (FLONASE) 50 MCG/ACT nasal spray Administer [...] Info) Description 07/28/2025 3:00 PM EDT Routine [facility] OBGYN [address] [place] [address] Karen Turk, [employer] [address] [facility] [address] [place] [address] 08/05/2025 10:20 AM EDT Routine [facility] OBGYN [address] [place] [address] Holland Fernández MD [address] [address] 08/16/2025 3:30 PM EST Pre-Admission Testing [facility] PREADMISSION T [address] [facility] [place] [address] 08/17/2025 7:30 AM EST Hospital Encounter [facility] DEL[facility] [address] [facility] [place] [address] Holland Fernández MD [address] [address] 08/17/2025 7:30 AM EST - 08/17/2025 8:30 AM EST Surgery [facility] DELIVERY [address] [place] [address] Holland Fernández MD [address] [address] SECTION REPEAT Scheduled Procedures Name Priority Associated Diagnoses Date/Ti me SECTION REPEAT 01/2025 7:30 AM EST documented as of this encounter Procedures Procedure Name Priority Date/Time Associated Diagnosis Comments [facility] Routine 06/28/2025 1:27 PM EDT Family history of congenital heart defect documented in this encounter Results * [facility] (06/28/2025 1:27 PM EDT) Anatomical Region Laterality Modality Ultrasound 06/28/2025 1:00 PM EDT Narrative 06/28/2025 1:44 PM EDT PAT NAME: BORIS DERAS MED REC#: [id number] DA: [id number] PAT GEND: F PAT TYPE: O EXAM CHAN: [id number] REF PHYS HOLLAND FERNÁNDEZ Comparison Studies The findings of this study are compared to the prior ultrasound study dated 05/03/25 Patient Status Outpatient Indication ======== 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 Hx PTD 36 - preeclampsia. Maternal Crohn's disease. Possible Lupus diagnosis. Previous c/s x 1. Obesity BMI 33. Maternal Assessment Height 160 cm Height (ft) 5 ft Height (in) 3 in Weight 85 kg Weight (lb) 187 lb BMI 33.13 kg/m Method ======= Transabdominal ultrasound examination. View: Suboptimal view: limited by late gestational age ========= Estes . Number of fetuses: 1 Dating ====== LMP on: 11/16/2024 GA by LMP 32 w + 0 d KATHLEEN by LMP: 08/23/2025 Ultrasound examination on: 06/28/2025 GA by U/S based upon: AC, BPD, Femur, HC GA by U/S 33 w + 2 d KATHLEEN by U/S: 08/14/2025 Method of dating: Restore dating from previous exam Previous dating: based on the LMP, selected on 03/31/2025 Agreed KATHLEEN of previous datin08/23/2025 Assigned: based on the LMP, selected on 03/31/2025 Assigned GA 32 w + 0 d Assigned KATHLEEN: 08/23/2025 length 280 d Biometry Standard BPD 84.7 mm 34w 1d 92% Hadlock OFD 106.1 mm 35w 0d 95% Mariam HC 303.8 mm 33w 5d 61% Hadlock Cerebellum tr 42.1 mm 33w 2d 67% Hill AC 292.9 mm 33w 2d 83% Hadlock Femur 61.7 mm 32w 0d 37% Hadlock Humerus 56.9 mm 33w 1d 78% Mariam HC / AC 1.04 EFW 2,105 g 32w 5d 72% Hadlock EFW (lb) 4 lb EFW (oz) 10 oz EFW by: Hadlock ([id number]) Extended Cav. septi pel. tr 5.5 mm Offset Second Press Operator 7.6 mm CM 7.0 mm 45% Nicolaides Head / Face / Neck Cephalic index 0.80 51% Nicolaides Extremities / Bony Struc FL / BPD 0.73 FL / HC 0.20 FL / AC 0.21 Other Structures FHR 131 bpm General Evaluation Cardiac activity present. FHR 131 bpm. movements present. Presentation cephalic. Placenta Placental site: posterior. Umbilical cord Cord vessels: 3 vessel cord. Amniotic fluid Amount of AF: normal. MVP 5.3 cm. KALEE 16.5 cm. Q1 5.3 cm, Q2 4.8 cm, Q3 4.2 cm, Q4 2.2 cm. Anatomy Cranium: Normal Cavum septi pellucidi: Normal Cerebellum: Normal Cisterna magna: Normal Head / Neck Rt lateral ventricle: Normal Lt lateral ventricle: Normal Lips: Appear normal Profile: Appears normal Nose: Appears normal 4-chamber view: Appears normal RVOT view: Appears normal LVOT view: Appears normal Heart / Thorax Aortic arch view: Appears normal Ductal arch view: Appears normal SVC: Appears Normal IVC: Appears Normal 3-vessel view: Appears normal 0-wpjtqn-lixjyor view: Appears normal Cord insertion: Normal Stomach: Appears normal Kidneys: Appears normal Bladder: Appears normal Wants to know gender: yes Doppler Arterial Umbilical A PI 1.05 76% Rico Umbilical A RI 0.63 59% Rico Umbilical A PS -59.92 cm/s Umbilical A ED -22.38 cm/s Umbilical A TAmax -35.60 cm/s Umbilical A MD -20.67 cm/s Umbilical A S / D 2.68 51% Rico Biophysical Profile 2: breathing movements 2: Gross body movements 2: tone 2: Amniotic fluid volume 05/21 Biophysical profile score Interpretation: normal Impression Boris presents for a follow-up ultrasound to assess interval growth and wellbeing. On today's exam, SIUP is noted in cephalic presentation with biometry measuring consistent with dates. EFW overall measures at the 72nd percentile. AC measures at the 83rd percentile. There is a normal amount of amniotic fluid. Placenta is posterior. BPP is 8/8. UA Dopplers are normal. Limited but normal appearing anatomy is visualized. Specifically, no cardiac abnormalities are noted today. Recommendation Further scans at your discretion. Recommend echo. 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 Hx PTD 36 - preeclampsia. Maternal Crohn's disease. Possible Lupusdiagnosis. Previous c/s x 1. Obesity BMI 33. Maternal Assessment [id number] cm Height (ft)5 ft Height (in)3 in Avzjtg01 kg Weight (lb)187 lb BMI33.13 kg/m Method ======= Transabdominal ultrasound examination. View: Suboptimal view: limited bylate gestational age ========= Estes . Number of fetuses: 1 Dating ====== LMP on:11/16/2024 GA by LMP32 w + 0 d KATHLEEN by LMP:08/23/2025 Ultrasound examination on:06/28/2025 GA by U/S based upon:AC, BPD, Femur, HC GA by U/S33 w + 2 d KATHLEEN by U/S:08/14/2025 Method of dating:Restore dating from previous exam Previous dating:based on the LMP, selected on 03/31/2025 Agreed KATHLEEN of previous datin08/23/2025 Assigned:based on the LMP, selected on 03/31/2025 Assigned GA32 w + 0 d Assigned KATHLEEN:08/23/2025 d Biometry Standard BPD84.7 mm 34w 1d 92% Hadlock SRT410.1 mm 35w 0d 95% Mariam HC303.8 mm 33w 5d 61% Hadlock Cerebellum tr42.1 mm 33w 2d 67% Hill AC292.9 mm 33w 2d 83% Hadlock Femur61.7 mm 32w 0d 37% Hadlock Xfmobcd30.9 mm 33w 1d 78% Mariam HC / AC1.04 EFW2,105 g 32w 5d 72% Hadlock EFW (lb)4 lb EFW (oz)10 oz EFW by:Hadlock ([id number]) Extended Cav. septi pel. tr5.5 mm Vp7.6 mm CM7.0 mm 45% Nicolaides Head / Face / Neck Cephalic index0.80 51% Nicolaides Extremities / Bony Struc FL / BPD0.73 FL / HC0.20 FL / AC0.21 Other Structures [id number] bpm General Evaluation Cardiac activity present. FHR 131 bpm. movements present. Presentation cephalic. Placenta Placental site: posterior. Umbilical cord Cord vessels: 3 vessel cord. Amniotic fluid Amount of AF: normal. MVP 5.3 cm. KALEE 16.5 cm. Q1 5.3 cm,Q2 4.8 cm, Q3 4.2 cm, Q4 2.2 cm. Anatomy Cranium:Normal Cavum septi pellucidi:Normal Cerebellum:Normal Cisterna magna:Normal Head / Neck Rt lateral ventricle:Normal Lt lateral ventricle:Normal Lips:Appear normal Profile:Appears normal Nose:Appears normal 4-chamber view:Appears normal RVOT view:Appears normal LVOT view:Appears normal Heart / Thorax Aortic arch view:Appears normal Ductal arch view:Appears normal SVC:Appears Normal IVC:Appears Normal 3-vessel view:Appears normal 1-vslhgt-pjzphvg view:Appears normal Cord insertion:Normal Stomach:Appears normal Kidneys:Appears normal Bladder:Appears normal Wants to know gender:yes Doppler Arterial Umbilical A PI1.05 76% Rico Umbilical A RI0.63 59% Rico Umbilical A PS-59.92 cm/s Umbilical A ED-22.38 cm/s Umbilical A TAmax-35.60 cm/s Umbilical A MD-20.67 cm/s Umbilical A S / D2.68 51% Rico Biophysical Profile 2: breathing movements 2: Gross body movements 2: tone 2: Amniotic fluid volume 8/8 Biophysical profile score Interpretation: normal Impression Boris presents for a follow-up ultrasound to assess interval growth andfetal wellbeing. On today's exam, SIUP is noted in cephalic presentation with biometrymeasuring consistent with dates. EFW overall measures at the 72ndpercentile. AC measures at the 83rd percentile. There is a normal amount of amniotic fluid. Placentais posterior. BPP is 8/8. UA Dopplers are normal. Limited but normal appearing anatomy is visualized. Specifically, nocardiac abnormalities are noted today. Recommendation Further scans at your discretion. Recommend echo. Coding ======= Description:42225-24 Follow Up Ultrasound Description:30492-32 BPP without NST House Superintendent: RT Gabbi R , [facility] Physician: Dominga Mccormick MD Electronically signed by: Dominga Mccormick MD at: 13:44 Brandan Taylor MD IMG US ORDERABLES Final Result documented in this encounter Visit Diagnoses Diagnosis Family history of congenital heart defect documented in this encounter Care Teams Reel Slitter Relationship Specialty Start Date End Date Anna Diane MD [address] [place] [address] [place] [address] PCP - General Nurse Practitioner 12/21/24 documented as of this encounter
--- OUTSIDE RECORDS SUMMARY | 2025-06-28 13:15 | XMS_ITS | Encounter Summary ---
Author Organization [facility] Address [address] [place] [id number] Care Team Providers Care Engineering Writer Name Role Phone Anna Diane MD Primary Care Provider Reason for Visit * Reason Comments Maternal Crohn's Disease; Prev C/S x 1; Prev child with sofi Encounter Details Date Type Department Care Team (Late st Contact Info) Description 06/28/2025 1:15 PM EDT Office Visit [facility]ERNAL MEDICINE [address] [place] [id number] Dominga Mccormick MD [address] [place] [address] Choroid plexus cyst of fetus affecting care of mother, antepartum, single or unspecified fetus (Primary Dx); Crohn's disease with complication, unspecified gastrointestinal tract location; Family history of autosomal aneuploidy; Family history of congenital heart defect; Hx of preeclampsia, prior , currently ; Lupus erythematosus, unspecified form; Previous section; 32 weeks gestation of Social History Tobacco Use Types Packs/Day Years [...] Sign Reading Time Taken Comments Blood Pressure 120/68 06/28/2025 12:54 PM EDT Pulse - - Temperature - - Respiratory Rate - - Oxygen Saturation - - Inhaled Oxygen Concentration - - Weight 84.9 kg (187 lb 3.2 oz) 06/28/2025 12:54 PM EDT Height - - Body Mass Index 33.16 01/01/2025 11:33 AM EDT documented in this encounter Progress Notes * Dominga Mccormick MD - 06/28/2025 1:37 PM EDTAssociated Problem(s): Hx of preeclampsia, prior , currently BP today is 120/68. Patient takes a daily ASA. growth and amniotic fluid are excellent. * Dominga Mccormick MD - 06/28/2025 1:37 PM EDTAssociated Problem(s): Family history of congenital heart defect No evidence of cardiac abnormality on today's scan. - Recommend echo * Dominga Mccormick MD - 06/28/2025 1:36 PM EDTAssociated Problem(s): Choroid plexus cysts, , affecting care of mother, antepartum Resolved. * Dhara Leggett RN - 06/28/2025 1:15 PM EDT NIPT negative. F/U with OB today. Pt denies contractions, cramping, leaking of fluid, vaginal bleeding. Reports +FM. * Dominga Mccormick MD - 06/28/2025 1:15 PM EDT Images from the original note were not included. Maternal/ Medicine Consult Note Name: Boris Deras : 2000 Referring Provider: Chrissie Fernández* Chief Complaint Maternal Crohn's Disease; Prev C/S x 1; Prev child with sofi Subjective History of Present Illness: Boris Deras is a 25 y.o. 32w0d who presents today for follow-up ultrasound. Pt is s/p low risk NIPT. Pt denies LOF/VB/ctx's. +FM. KATHLEEN: Estimated Date of Delivery: 08/23/25 ROS: As noted in HPI. Past Medical History: Diagnosis Date Asthma as a child Chronic headaches Crohn disease 07/2023 Preeclampsia 2022 Past Surgical History: Procedure Laterality Date SECTION 2022 COLONOSCOPY W/ BIOPSIES CYST REMOVAL buttock TONSILLECTOMY AND ADENOIDECTOMY WISDOM TOOTH EXTRACTION OB History 3 Para 1 Term 0 1 AB 1 Living 1 SAB 1 IAB 0 Ectopic 0 Molar 0 Multiple 0 Live Births 1 Obstetric Comments FOB 1- 1st preg FOB 2- 2nd to 3rd preg Objective Vital Signs BP 120/68 Wt 84.9 kg (187 lb 3.2 oz) LMP 11/16/2024 (Exact Date) Estimated body mass index is 33.16 kg/m?? as calculated from the following: Height as of 01/01/25: 160 cm (63 ). Weight as of this encounter: 84.9 kg (187 lb 3.2 oz). Physical Exam Constitutional: Appearance: Normal appearance. HENT: Head: Normocephalic and atraumatic. Cardiovascular: Rate and Rhythm: Normal rate. Pulmonary: Effort: Pulmonary effort is normal. Musculoskeletal: General: Normal range of motion. Cervical back: Normal range of motion and neck supple. Neurological: General: No focal deficit present. Mental Status: She is alert and oriented to person, place, and time. Psychiatric: Mood and Affect: Mood normal. Behavior: Behavior normal. Thought Content: Thought content normal. Judgment: Judgment normal. Ultrasound Impression: Vtx, S=D, nl KALEE, posterior placenta, nl anatomy, BPP 8/8, UA Dopplers nl. Assessment and Plan Diagnoses and all orders for this visit: 1. Choroid plexus cyst of fetus affecting care of mother, antepartum, single or unspecified fetus (Primary) Assessment & Plan: Resolved. 2. Crohn's disease with complication, unspecified gastrointestinal tract location 3. Family history of autosomal aneuploidy 4. Family history of congenital heart defect Assessment & Plan: No evidence of cardiac abnormality on today's scan. - Recommend echo 5. Hx of preeclampsia, prior , currently Assessment & Plan: BP today is 120/68. Patient takes a daily ASA. 6. Lupus erythematosus, unspecified form 7. Previous section 8. 32 weeks gestation of Follow Up No follow-ups on file. Recommend echo. I spent 10 minutes caring for the [...] other procedures such as amniocentesis or [facility]. Dominga Mccormick MD 06/28/2025 documented in this encounter Plan of Treatment Upcoming Encounters Date Type Department Care Team (Late st Contact Info) Description 07/28/2025 3:00 PM EDT Routine [facility] OBGYN [address] [place] [address] Karen Turk, [employer]OTATO PANCAKE FRIER [address] [facility] [address] [place] [address] 08/05/2025 10:20 AM EDT Routine [facility] OBGYN [address] [place] [address] Chrissie Fernández MD [address] [facility] [address] [place] [address] 08/16/2025 3:30 PM EST Pre-Admission Testing [facility] P[facility]ION T [address] [place] [address] 08/17/2025 7:30 AM EST Hospital Encounter [facility] DELIV[facility] [address] [place] [address] Chrissie Fernández MD [address] [facility] [address] 08/17/2025 7:30 AM EST - 08/17/2025 8:30 AM EST Surgery [facility] DEL[facility] [address] [place] [address] Chrissie Fernández MD [address] [address] SECTION REPEAT Scheduled Procedures Name Priority Associated Diagnoses Date/Ti me SECTION REPEAT 01/2025 7:30 AM EST documented as of this encounter Visit Diagnoses Diagnosis Choroid plexus cyst of fetus affecting care of mother, antepartum, single or unspecified fetus- Primary Crohn's disease with complication, unspecified gastrointestinal tract location Family history of autosomal aneuploidy Family history of congenital heart defect Hx of preeclampsia, prior , currently with other poor obstetric history Lupus erythematosus, unspecified form Previous section Other postprocedural status 32 weeks gestation of documented in this encounter Care Teams Engineering Writer Relationship Specialty Start Date End Date Anna Diane MD [address] [place] [address] TUCKER Singh [id number] PCP - General Nurse Practitioner 12/21/24 documented as of this encounter
--- OUTSIDE RECORDS SUMMARY | 2025-06-28 14:10 | XMS_ITS | Encounter Summary ---
Author Organization [facility] Address [address] [place] [id number] Care Team Providers Care Cloth Dye Range Operator Name Role Phone Anna Diane MD Primary Care Provider Reason for Visit * Reason Comments Routine Visit Encounter Details Date Type Department Care Team (Late st Contact Info) Description 06/28/2025 2:10 PM EDT Routine [facility] OBGYN [address] [address] Chrissie Fernández MD 1700 [place] [address] GA: 32w0d Social History Tobacco Use Types Packs/Day Years [...] Sign Reading Time Taken Comments Blood Pressure 112/60 06/28/2025 2:27 PM EDT Pulse - - Temperature - - Respiratory Rate - - Oxygen Saturation - - Inhaled Oxygen Concentration - - Weight 84.4 kg (186 lb) 06/28/2025 2:27 PM EDT Height - - Body Mass Index 32.95 01/01/2025 11:33 AM EDT documented in this encounter Progress Notes * Chrissie Fernández MD - 06/28/2025 2:10 PM EDT Images from the original note were not included. OB FOLLOW UP CC- Here for care of Boris Deras is a 25 y.o. 32w0d patient being seen today for her obstetrical followup visit. Patient reports occasional headaches, low back and pelvic pressure, and right sciatic pain. . Her care is complicated by (and status) : see below. Patient Active Problem List Diagnosis Crohn's disease Herpes simplex Lupus erythematosus Family history of congenital heart defect Hx of preeclampsia, prior , currently Family history of autosomal aneuploidy Choroid plexus cysts, , affecting care of mother, antepartum Second trimester Previous section 32 weeks gestation of Multigravida in third trimester Encounter for sterilization Flu Status: not in stock TDAP status: received at last visit RSV vaccine: discuss wiith provider Rhogam status: was not indicated 28 week labs: Reviewed Ultrasound Today: Yes at PDC Non Stress Test: No. ROS - Patient Denies: Loss of Fluid, Vaginal Spotting, Vision Changes, Nausea , Vomiting , Contractions, Epigastric pain, and skin itching Movement : normal Other [...] as entered above. Chrissie Fernández MD BP 112/60 Wt 84.4 kg (186 lb) LMP 11/16/2024 (Exact Date) BMI 32.95 kg/m?? EXAM: Vitals BP: 112/60 Weight: 84.4 kg (186 lb) Heart Rate: pdc Urine Glucose Read-only: Negative Urine Protein Read-only: Negative Assessment and Plan Problem List Items Addressed This Visit Hx of preeclampsia, prior , currently Overview With G1 did not receive Mag according to patient coded during csection. Waiting for medical records Baby aspirin rx to start at 10 weeks. Baseline PEP Baseline 24 hour urine PDC Anatomy scan (us ordered) Relevant Medications aspirin 81 MG chewable tablet ferrous sulfate 325 (65 FE) MG tablet Previous section Overview Plans repeat, would consider TOLAC if labors Relevant Medications aspirin 81 MG chewable tablet ferrous sulfate 325 (65 FE) MG tablet 32 weeks gestation of Relevant Medications aspirin 81 MG chewable tablet ferrous sulfate 325 (65 FE) MG tablet Other Relevant Orders POC Urinalysis Dipstick (Completed) Multigravida in third trimester - Primary Relevant Medications aspirin 81 MG chewable tablet ferrous sulfate 325 (65 FE) MG tablet Other Relevant Orders POC Urinalysis Dipstick (Completed) Encounter for sterilization Relevant Medications Risankizumab-rzaa (Skyrizi) 360 MG/2.4ML solution cartridge ferrous sulfate 325 (65 FE) MG tablet at 32w0d status reassuring. 28 week labs reviewed. Activity and Exercise discussed. movement/PTL or Labor precautions Patient is on vitamins Reviewed Pre-eclampsia signs/symptoms Discussed bASA for PIH prevention from 12 to 36wk Desires Sterilization: Reviewed risks/benefits of BTL vs bilateral salpingectomy. Consent has been signed. Reviewed PP contraception options Return in about 2 weeks (around 07/12/2025) for Next scheduled follow up. Chrissie Fernández MD 06/28/2025 documented in this encounter Plan of Treatment Upcoming Encounters Date Type Department Care Team (Late st Contact Info) Description 07/28/2025 3:00 PM EDT Routine [facility] OBGYN [address] [place] [address] Karen Turk, TITLE I DIRECTOR [facility] [address] [place] [address] 08/05/2025 10:20 AM EDT Routine [facility] OBGYN [address] [place] [address] Chrissie Fernández MD [address] [facility] [address] [place], [place] [id number] 08/16/2025 3:30 PM EST Pre-Admission Testing [facility] PREADMISSION T [address] [place] [address] 08/17/2025 7:30 AM EST Hospital Encounter [facility] LABOR DELIVERY [address] [place] [address] Chrissie Fernández MD [address] [address] 08/17/2025 7:30 AM EST - 08/17/2025 8:30 AM EST Surgery [facility] LABOR DELIVERY [address] [place] [address] Chrissie Fernández MD [address] [address] SECTION REPEAT Scheduled Procedures Name Priority Associated Diagnoses Date/Ti me SECTION REPEAT 01/2025 7:30 AM EST documented as of this encounter Procedures Procedure Name Priority Date/Time Associated Diagnosis Comments POCT URINALYSIS DIPSTICK, MANUAL Routine 06/28/2025 2:35 PM EDT Multigravida in third trimester 32 weeks gestation of documented in this encounter Results * POC Urinalysis Dipstick (06/28/2025 2:35 PM EDT) Glucose, UA Negative Negative mg/dL [facility] Protein, POC Negative Negative mg/dL [facility] Urine 06/28/2025 2:35 PM EDT Chrissie Fernández MD POINT OF CARE TEST OR DERABLES Final Result [facility]
[address] [place] [address], documented in this encounter Visit Diagnoses Diagnosis Multigravida in third trimester- Primary 32 weeks gestation of Previous section Other postprocedural status Hx of preeclampsia, prior , currently with other poor obstetric history Encounter for sterilization Sterilization documented in this encounter Care Teams Cloth Dye Range Operator Relationship Specialty Start Date End Date Anna Diane MD 7 [facility] [address] PCP - General Nurse Practitioner 12/21/24 documented as of this encounter
--- OUTSIDE RECORDS SUMMARY | 2025-07-14 12:30 | XMS_ITS | Encounter Summary ---
Author Organization [facility] Address [address] [place] [address] Care Team Providers Care Bid Writer Name Role Phone Anna Diane MD Primary Care Provider Reason for Visit * Reason Comments Routine Visit Encounter Details Date Type Department Care Team (Late st Contact Info) Description 07/14/2025 12:[address] [facility] OBGYN [address] [place] [address] Karen Turk, RUGBY UNION FOOTBALLER [address] [place] [address] GA: 34w2d Social History Tobacco Use Types Packs/Day Years [...] Sign Reading Time Taken Comments Blood Pressure 118/80 07/14/2025 12:26 PM EDT Pulse - - Temperature - - Respiratory Rate - - Oxygen Saturation - - Inhaled Oxygen Concentration - - Weight 85.8 kg (189 lb 3.2 oz) 07/14/2025 12:26 PM EDT Height - - Body Mass Index 33.52 01/01/2025 11:33 AM EDT documented in this encounter Progress Notes * Karen Turk, RUGBY UNION FOOTBALLER - 07/14/2025 12:30 PM EDT Images from the original note were not included. OB FOLLOW UP CC- Here for care of Boris Deras is a 25 y.o. 34w2d patient being seen today for her obstetrical followup visit. Patient reports back pain and lower abdominal cramping and pressure. Baby's movement pattern has changed lately. Her care is complicated by (and status) [...] third trimester Encounter for sterilization Flu Status: Declines RSV: already given Ultrasound Today: No Non Stress Test: yes. 20+ minutes, reactive with no ctxs, indication: decreased fm ROS - Patient Denies: Loss of Fluid, Vaginal Spotting, Vision Changes, Headaches, Nausea , Vomiting , Contractions, Epigastric pain, and skin itching Movement : change in movement pattern lately Other than what is documented in the HPI, all other systems reviewed and are negative. The additional following portions of the patient's history were reviewed and updated as appropriate: allergies, current medications, past family history, past medical history, past social history, past surgical history, and problem list. I have reviewed and agree with the HPI, ROS, and historical information as entered above. Karen Turk, RUGBY UNION FOOTBALLER BP 118/80 Wt 85.8 kg (189 lb 3.2 oz) LMP 11/16/2024 (Exact Date) BMI 33.52 kg/m?? EXAM: Vitals BP: 118/80 Weight: 85.8 kg (189 lb 3.2 oz) Heart Rate: + Urine Glucose Read-only: Negative Urine Protein Read-only: Negative Assessment and Plan Problem List Items Addressed This Visit Gravid and Previous section Overview Plans repeat, would consider TOLAC if labors Relevant Medications aspirin 81 MG chewable tablet ferrous sulfate 325 (65 FE) MG tablet Multigravida in third trimester - Primary Relevant Medications aspirin 81 MG chewable tablet ferrous sulfate 325 (65 FE) MG tablet Other Relevant Orders POC Urinalysis Dipstick (Completed) Other Visit Diagnoses 34 weeks gestation of Relevant Orders POC Urinalysis Dipstick (Completed) Decreased movements in third trimester, single or unspecified fetus at 34w2d status reassuring. Activity and Exercise discussed. movement/PTL or Labor precautions Patient is on vitamins Reviewed Pre-eclampsia signs/symptoms GBS next visit Return in about 2 weeks (around 07/28/2025). Karen Turk APRN 07/14/2025 documented in this encounter Plan of Treatment Upcoming Encounters Date Type Department Care Team (Late st Contact Info) Description 07/28/2025 3:[address] [facility] OBGYN [address] [place] [address] Karen Turk APRN [address] [address] 08/05/2025 10:[address] [facility] OBGYN [address] [place] [address] Chrissie Fernández MD [address] [address] 08/16/2025 3:30 PM EST [facility] [address] [place] [address] 08/17/2025 7:30 AM EST Hospital Encounter [facility] [address] [place] [address] Chrissie Fernández MD [facility] [facility] [address] [place] [address] 08/17/2025 7:30 AM EST - 08/17/2025 8:30 AM EST Surgery [facility] [address] [place] [address] Chrissie Fernández MD [address] [place] [address] SECTION REPEAT Scheduled Procedures Name Priority Associated Diagnoses Date/Ti me SECTION REPEAT 01/2025 7:30 AM EST documented as of this encounter Procedures Procedure Name Priority Date/Time Associated Diagnosis Comments POCT URINALYSIS DIPSTICK, MANUAL Routine 07/14/2025 12:22 PM EDT Multigravida in third trimester 34 weeks gestation of SCANNED - PROCEDURE 07/14/2025 documented in this encounter Results * POC Urinalysis Dipstick (07/14/2025 12:22 PM EDT) Glucose, UA Negative Negative mg/dL [facility] Protein, POC Negative Negative mg/dL [facility] Urine 07/14/2025 12:2 2 PM EDT us Karen Turk APRN POINT OF CARE TEST ORDERABLES Final Result [facility]
[address] [place] [address], [place] [phone] * Procedure Scanned (07/14/2025) us Karen Turk APRN PROCEDURE/MINOR SURGICAL ORDE RABLES Final Result documented in this encounter Visit Diagnoses Diagnosis Multigravida in third trimester- Primary 34 weeks gestation of Previous section Other postprocedural status Decreased movements in third trimester, single or unspecified fetus documented in this encounter Care Teams Bid Writer Relationship Specialty Start Date End Date Anna Diane MD [address] [place] [address] [place] [address] PCP - General Nurse Practitioner 12/21/24 documented as of this encounter
--- OUTSIDE RECORDS SUMMARY | 2025-07-20 11:45 | XMS_ITS | Encounter Summary ---
Author Organization [facility] Address [address] [place] [address] Care Team Providers Care Plant Controller Name Role Phone Anna Diane MD Primary Care Provider Reason for Visit * Reason Comments Work In OB Encounter Details Date Type Department Care Team (Late st Contact Info) Description 07/20/2025 11:45 AM EDT Routine [facility] OBGYN [address] [address] Karen Turk, MAINTENANCE SHOP CLERK [address] [facility] [address] [place], [place] [id number] GA: 35w1d Social History Tobacco Use Types Packs/Day Years [...] Sign Reading Time Taken Comments Blood Pressure 108/70 07/20/2025 12:55 PM EDT Pulse - - Temperature - - Respiratory Rate - - Oxygen Saturation - - Inhaled Oxygen Concentration - - Weight 85.7 kg (189 lb) 07/20/2025 12:55 PM EDT Height - - Body Mass Index 33.48 01/01/2025 11:33 AM EDT documented in this encounter Progress Notes * Karen Turk, MAINTENANCE SHOP CLERK - 07/20/2025 11:45 AM EDT Images from the original note were not included. CC- Work In OB Boris Marlee Deras is a 25 y.o. 35w1d patient being seen today for swelling in both calves and ankles since Saturday, sees spots occasionally when moving around, lost some of her mucus plug last night, low back pain, low abdominal cramping, and pelvic pressure. Her care is complicated by (and status) : Patient Active Problem List Diagnosis Crohn's disease Herpes simplex Lupus erythematosus Family history of congenital heart defect Hx of preeclampsia, prior , currently Family history of autosomal aneuploidy Choroid plexus cysts, , affecting care of mother, antepartum Second trimester Previous section 32 weeks gestation of Multigravida in third trimester Encounter for sterilization Ultrasound Today: No. ROS - Patient Denies: Loss of Fluid, Vaginal Spotting, Headaches, Vomiting , Contractions, Epigastric pain, and skin itching Movement : normal All other systems reviewed and are negative. The additional following portions of the patient's history were reviewed and updated as appropriate: allergies, current medications, past family history, past medical history, past social history, past surgical history, and problem list. I have reviewed and agree with the HPI, ROS, and historical information as entered above. Karen Turk, MAINTENANCE SHOP CLERK BP 108/70 Wt 85.7 kg (189 lb) LMP 11/16/2024 (Exact Date) BMI 33.48 kg/m?? EXAM: Vitals BP: 108/70 Weight: 85.7 kg (189 lb) Heart Rate: + Dilation/Effacement/Station Dilation: Closed Assessment and Plan Problem List Items Addressed This Visit Gravid and Hx of preeclampsia, prior , currently Overview With G1 did not receive Mag according to patient coded during csection. Waiting for medical records Baby aspirin rx to start at 10 weeks. Baseline PEP Baseline 24 hour urine PDC Anatomy scan (us ordered) Relevant Medications aspirin 81 MG chewable tablet ferrous sulfate 325 (65 FE) MG tablet Other Relevant Orders AlP+ALT+AST+Creat+LD+TBili+.. Multigravida in third trimester - Primary Relevant Medications aspirin 81 MG chewable tablet ferrous sulfate 325 (65 FE) MG tablet Other Relevant Orders POC Urinalysis Dipstick (Completed) Other Visit Diagnoses 35 weeks gestation of Relevant Orders POC Urinalysis Dipstick (Completed) Swelling of lower extremity during in third trimester Relevant Orders POC Urinalysis Dipstick (Completed) AlP+ALT+AST+Creat+LD+TBili+.. at 35w1d status reassuring. Increase PO fluids RTC for worsening symptoms Return in about 1 week (around 07/27/2025). BP wnl, no proteinuria, cervix closed. PEP now. Karen Turk APRN 07/20/2025 documented in this encounter Plan of Treatment Upcoming Encounters Date Type Department Care Team (Late st Contact Info) Description 07/28/2025 3:00 PM EDT Routine [facility] OBGYN [address] [place] [address] Karne Turk APRN [address] [place] [id number] 08/05/2025 10:20 AM EDT Routine [facility] OBGYN [address] [place] [address] Chrissie Fernández MD [address] [place] [id number] 08/16/2025 3:30 PM EST Pre-Admission Testing [facility] PREADMISSION T [address] [place] [address] 08/17/2025 7:30 AM EST Hospital Encounter [facility] LABOR DELIVERY [address] [place] [address] Chrissie Fernández MD [address] [address] 08/17/2025 7:30 AM EST - 08/17/2025 8:30 AM EST Surgery [facility] LABOR DELIVERY [address] [address] Chrissie Fernández MD [address] [place] [address] SECTION REPEAT Scheduled Procedures Name Priority Associated Diagnoses Date/Ti me SECTION REPEAT 01/2025 7:30 AM EST documented as of this encounter Procedures Procedure Name Priority Date/Time Associated Diagnosis Comments ALP+ALT+AST+CREAT+LD +TBILI+.. Routine 07/20/2025 1:43 PM EDT Swelling of lower extremity during in third trimester Hx of preeclampsia, prior , currently POCT URINALYSIS DIPSTICK, MANUAL Routine 07/20/2025 1:06 PM EDT Multigravida in third trimester 35 weeks gestation of Swelling of lower extremity during in third trimester documented in this encounter Results * (ABNORMAL) AlP+ALT+AST+Creat+LD+TBili+.. (07/20/2025 1:43 PM EDT) Uric Acid 2.8 2.4 - 5.7 mg/dL [facility] Creatinine 0.37(L) 0.57 - 1.00 mg/dL [facility] EGFR Result 142.8 >60.0 mL/min/1.7 3 [facility] Comment: GFR Categories in Chronic Kidney Disease (CKD) GFR Category GFR (mL/min/1.73) Interpretation G1 90 or greater Normal or high (1) G2 60-89 Mild decrease (1) G3a 45-59 Mild to moderate decrease G3b 30-44 Moderate to severe decrease G4 15-29 Severe decrease G5 14 or less Kidney failure (1)In the absence of evidence of kidney disease, neither GFR category G1 or G2 fulfill the criteria for CKD. eGFR calculation 2020 CKD-EPI creatinine equation, which does not include race as a factor Total Bilirubin <0.2 0.0 - 1.2 mg/dL [facility] Alkaline Phosphatase 146(H) 39 - 117 U/L [facility] LDH 179 135 - 214 U/L [facility] AST (SGOT) 17 1 - 32 U/L [facility] ALT (SGPT) 11 1 - 33 U/L [facility] WBC 8.23 3.40 - 10.80 10*3/mm3 [facility] RBC 4.03 3.77 - 5.28 10*6/mm3 [facility] Hemoglobin 11.0(L) 12.0 - 15.9 g/dL [facility] Hematocrit 35.1 34.0 - 46.6 % [facility] MCV 87.1 79.0 - 97.0 fL [facility] MCH 27.3 26.6 - 33.0 pg [facility] MCHC 31.3(L) 31.5 - 35.7 g/dL [facility] RDW 13.1 12.3 - 15.4 % [facility] Platelets 197 140 - 450 10*3/mm3 [facility] Neutrophil Rel % 71.9 42.7 - 76.0 % [facility] Lymphocyte Rel % 18.7(L) 19.6 - 45.3 % [facility] Monocyte Rel % 6.3 5.0 - 12.0 % [facility] Eosinophil Rel % 2.3 0.3 - 6.2 % [facility] Basophil Rel % 0.2 0.0 - 1.5 % [facility] Neutrophils Absolute 5.91 1.70 - 7.00 10*3/mm3 [facility] Lymphocytes Absolute 1.54 0.70 - 3.10 10*3/mm3 [facility] Monocytes Absolute 0.52 0.10 - 0.90 10*3/mm3 [facility] Eosinophils Absolute 0.19 0.00 - 0.40 10*3/mm3 [facility] Basophils Absolute 0.02 0.00 - 0.20 10*3/mm3 [facility] Immature Granulocyte Rel % 0.6(H) 0.0 - 0.5 % [facility] Immature Grans Absolute 0.05 0.00 - 0.05 10*3/mm3 [facility] nRBC 0.0 0.0 - 0.2 /100 WBC [facility] Blood 07/20/2025 1:43 PM EDT 07/20/2025 Narrative [facility] - 07/21/2025 3:35 AM EDT Performed at: [address] [place] [id number] Senior Programmer: Yakov South MD, Phone: [phone] Karen Turk APRN LAB BLOOD ORDERABLES Final Re sult [facility] [address] [place] [address], [place] [phone] [facility] [address] [place] [address], [place] [phone] * POC Urinalysis Dipstick (07/20/2025 1:06 PM EDT) [facility] Glucose, UA Negative Negative mg/dL [facility] Protein, POC Negative Negative mg/dL [facility] Urine 07/20/2025 1:06 PM EDT Karen Turk APRN POINT OF CARE TEST ORDERABLES Final Result [facility]
[address] [place] [address], [place] [phone] documented in this encounter Visit Diagnoses Diagnosis Multigravida in third trimester- Primary 35 weeks gestation of Swelling of lower extremity during in third trimester Hx of preeclampsia, prior , currently with other poor obstetric history documented in this encounter Care Teams Plant Controller Relationship Specialty Start Date End Date Anna Diane MD [address] [place] [address] TUCKER Singh [address] PCP - General Nurse Practitioner 12/21/24 documented as of this encounter
--- OUTSIDE RECORDS SUMMARY | 2025-07-27 16:15 | XMS_ITS | Encounter Summary ---
Author Organization [facility] Address [address] [place] [id number] Care Team Providers Care Java Lead Engineer Name Role Phone Anna Diane MD Primary Care Provider Encounter Details Date Type Department Care Team (Late st Contact Info) Description 07/20/2025 Telephone [facility] OBGYN [address] [address] Chrissie Fernández MD 1700 [facility] [address] [place], [place] [id number] Social History Tobacco Use Types Packs/Day Years [...] encounter Miscellaneous Notes * Telephone Encounter - Porsche Saavedra RN - 07/20/2025 11:40 AM EDT Appointment scheduled. * Telephone Encounter - Teresa Silverman RegSched Rep - 07/20/2025 11:21 AM EDT Patient spoke with Porsche about coming in today for an appointment. Patient said Porsche told her to come in around 11:30 am to be seen. I do not see appointment scheduled for today. Patient said its stroming really bad and her ETA is 11: 55am documented in this encounter Plan of Treatment Upcoming Encounters Date Type Department Care Team (Late st Contact Info) Description 07/28/2025 3:00 PM EDT Routine [facility] OBGYN [address] [place] [address] Karen Turk, JUNIOR GRAPHIC DESIGNER [address] [facility] [address] 08/05/2025 10:20 AM EDT Routine [facility] OBGYN [address] [place] [address] Chrissie Fernández MD [address] [address] 08/16/2025 3:30 PM EST Pre-Admission Testing [facility] PREADMISSION T [address] [place] [address] 08/17/2025 7:30 AM EST Hospital Encounter [facility] LABOR DELIVERY [address] [place] [address] Chrissie Fernández MD [address] [address] 08/17/2025 7:30 AM EST - 08/17/2025 8:30 AM EST Surgery [facility] LABOR DELIVERY [address] [place] [address] Chrissie Fernández MD 1700 [facility] [address] [place] [address] SECTION REPEAT Scheduled Procedures Name Priority Associated Diagnoses Date/Ti me SECTION REPEAT 01/2025 7:30 AM EST documented as of this encounter Visit Diagnoses Not on filedocumented in this encounter Care Teams Java Lead Engineer Relationship Specialty Start Date End Date Anna Diane MD [address] [place] [address] [place] [facility] [address] PCP - General Nurse Practitioner 12/21/24 documented as of this encounter
--- OUTSIDE RECORDS SUMMARY | 2025-07-27 16:15 | XMS_ITS | Encounter Summary ---
Author Organization [facility] Address [address] [place] [address] Care Team Providers Care Stock Dealer Name Role Phone Anna Diane MD Primary Care Provider Encounter Details Date Type Department Care Team (Latest Contact Info) Description 07/14/2025 Travel Social History Tobacco Use Types Packs/Day [...] Info) Description 07/28/2025 3:00 PM EDT Routine [facility] OBGYN [address] [place] [address] Karen Turk, MACHINE CLOTHING WORKER [address] [place] [address] 08/05/2025 10:20 AM EDT Routine [facility] OBGYN [address] [place] [address] Chrissie Fernández MD [address] [place] [phone] 08/16/2025 3:30 PM EST Pre-Admission Testing [facility] PREADMISSION T [address] [place] [address] 08/17/2025 7:30 AM EST Hospital Encounter [facility] LABOR DELIVERY [address] [place] [address] Chrissie Fernández MD [address] [facility] [address] [place] [address] 08/17/2025 7:30 AM EST - 08/17/2025 8:30 AM EST Surgery [facility] LABOR DELIVERY [address] [place] [address] Chrissie Fernández MD [address] [address] SECTION REPEAT Scheduled Procedures Name Priority Associated Diagnoses Date/Ti me SECTION REPEAT 01/2025 7:30 AM EST documented as of this encounter Visit Diagnoses Not on filedocumented in this encounter Care Teams Stock Dealer Relationship Specialty Start Date End Date Anna Diane MD [address] [place] [address] TUCKER Singh [id number] PCP - General Nurse Practitioner 12/21/24 documented as of this encounter
--- OUTSIDE RECORDS SUMMARY | 2025-07-27 16:15 | XMS_ITS | Encounter Summary ---
[facility] Organization [facility] Address [address] [place] [id number] Care Team Providers Care Exterminator Name Role Phone Anna Diane MD Primary Care Provider Encounter Details Date Type Department Care Team (Late st Contact Info) Description 07/20/2025 Telephone [facility] OBGYN [address] [address] Chrissie Fernández MD [address] [place] [phone] Social History Tobacco Use Types Packs/Day Years [...] Encounter - Porsche Saavedra RN - 07/20/2025 9:39 AM EDT Patient of Dr. Fernández; @ 35w 1d with hx preeclampsia. VARGHESE 07/14/25; NOV 07/28/25. See patient message thread from 07/18/25 through 07/20/25. Called patient to discuss need to evaluate her symptoms. She agreed to an appointment here today. documented in this encounter Plan of Treatment Upcoming Encounters Date Type Department Care Team (Late st Contact Info) Description 07/28/2025 3:00 PM EDT Routine [facility] OBGYN [address] [place] [address] Karen Turk, WAREHOUSE SHIPPING SUPERVISOR [address] [address] 08/05/2025 10:20 AM EDT Routine [facility] OBGYN [address] [place] [address] Chrissie Fernández MD [address] [address] 08/16/2025 3:30 PM EST Pre-Admission Testing [facility] PREADMISSION T [address] [facility] [place] [address] 08/17/2025 7:30 AM EST Hospital Encounter [facility] LABOR DELIVERY [address] [facility] [place] [address] Chrissie Fenrández MD [address] [address] 08/17/2025 7:30 AM EST - 08/17/2025 8:30 AM EST Surgery [facility] LABOR DELIVERY [address] [facility] [place] [address] Chrissie Fernández MD [address] [address] SECTION REPEAT Scheduled Procedures Name Priority Associated Diagnoses Date/Ti me SECTION REPEAT 01/2025 7:30 AM EST documented as of this encounter Visit Diagnoses Not on filedocumented in this encounter Care Teams Exterminator Relationship Specialty Start Date End Date Anna Diane MD [address] [place] [address] PCP - General Nurse Practitioner 12/21/24 documented as of this encounter
--- OUTSIDE RECORDS SUMMARY | 2025-07-27 16:15 | XMS_ITS | Clinical Summary ---
Author Organization [facility] Address [address] [place] [address] Care Team Providers Care Roast Master Name Role Phone Anna Diane MD Primary [...] Active Problems Problem Noted Date Diagnosed Date 32 weeks gestation of 06/28/2025 Multigravida in third trimester 06/28/2025 Encounter for sterilization 06/28/2025 Choroid plexus cysts, , affecting care of mother, antepartum 03/31/2025 Assessment & Plan (06/28/2025 1:36 PM EDT): Resolved. Assessment & Plan (03/31/2025 12:43 PM EDT): [...] Second trimester 03/31/2025 Previous section 03/31/2025 Overview (06/28/2025): Plans repeat, would consider TOLAC if labors Family history of autosomal aneuploidy 5 Hx of preeclampsia, prior , currently p regnant 01/08/2025 Overview (01/08/2025): With G1 did not receive Mag according to patient coded during csection. Waiting for medical records Baby aspirin rx to start at 10 weeks. Baseline PEP Baseline 24 hour urine PDC Anatomy scan (us ordered) Assessment & Plan (06/28/2025 1:45 PM EDT): BP today is 120/68. Patient takes a daily ASA. growth and amniotic fluid are excellent. Herpes simplex 01/01/2025 Overview (01/01/2025): pt unsure Family history of congenital heart defect 2024 Overview (01/08/2025): Patient's son was born with double aortic arch-surgery x 6 [facility] children's PDC Anatomy scan (us ordered) Assessment & Plan (06/28/2025 1:37 PM EDT): No evidence of cardiac abnormality on today's scan. - Recommend echo Assessment & Plan (05/03/2025 9:42 AM EDT): [...] volume and cervical length were normal. Mechanical ID interval was normal for gestational age. This fetus is an increased risk for congenital heart disease given patient's history. With a left-sided lesion in her previous child this fetus may be at is much as a 10% risk of congenital heart disease. No abnormalities are seen today but was too early to perform an anatomic survey. We additionally performed mechanical ID testing as the patient has never had [...] Encounters Date Type Department Care Team Description 07/21/2025 Results Follow-Up [facility] OBGYN [address] [address] Karen Turk APRN 07/20/2025 11:45 AM EDT Routine [facility] [address] [address] Karen Turk, DIGITAL CONTENT COORDINATOR GA: 35w1d 07/20/2025 Travel 07/20/2025 Telephone [facility] [address]00 [facility] [address] [place] [phone] Holland Amos MD 07/20/2025 Telephone [facility] 1700 [facility] [address] [place] [address] Holland Amos MD 07/14/2025 12:30 PM EDT Routine [facility] O[facility]YN [address] [place] [address] BurkeOusmaneprashanth Velázquez, CHAITANYA GA: 34w2d 07/14/2025 Travel 06/28/2025 2:10 PM EDT Routine [facility]YN 1700 [facility] [address] [place] [address] Hollnad Amos MD GA: 32w0d 06/28/2025 1:15 PM EDT Office Visit [facility] MATERNAL MEDICINE 1700 [facility] [address] [place] [address] Dominga Mccormick MD Choroid plexus cyst of fetus affecting care of mother, antepartum, single or unspecified fetus (Primary Dx); Crohn's disease with complication, unspecified gastrointestinal tract location; Family history of autosomal aneuploidy; Family history of congenital heart defect; Hx of preeclampsia, prior , currently ; Lupus erythematosus, unspecified form; Previous section; 32 weeks gestation of 06/28/2025 12:49 PM EDT - 06/28/2025 11:59 PM EDT Hospital Encounter [facility] US PER DIAG CTR [address] [place] [address] Brandan Taylor MD Family history of congenital heart defect Discharge Disposition: Home or Self Care 06/28/2025 Travel 06/10/2025 Results Follow-Up [facility] O[facility]YN [address] [place] [address] Luz Elena Craig, CHAITANYA 06/07/2025 2:45 PM EDT Routine [facility] O[facility] [address] [place] [address] Luz Elena Craig, DIGITAL CONTENT COORDINATOR GA: 29w0d 06/07/2025 Travel 06/07/2025 Telephone [facility] 1700 [facility] [address] [place] [address] TRACEY CARBAJAL-MUCUS PLUG 06/01/2025 Results Follow-Up [facility] O[facility]YN [address] [place] [address] Luz Elena Craig, DIGITAL CONTENT COORDINATOR 05/31/2025 10:30 AM EDT Routine [facility] O[facility]YN [address] [place] [address] Luz Elena Craig, DIGITAL CONTENT COORDINATOR GA: 28w0d 05/31/2025 Travel 05/25/2025 6:35 PM EDT - 05/25/2025 8:25 PM EDT Hospital Encounter [facility] LABOR DELIVERY [address] [place] [address] Holland Amos MD O'Broin, Seamus, MD Discharge Disposition: Home or Self Care 05/25/2025 Travel 05/25/2025 Telephone [facility] OBGYN [address] [address] Holland Amos MD 05/03/2025 10:10 AM EDT Routine [facility] O[facility] 1700 [facility] [address] [place] [address] Holland Amos MD GA: 24w0d 05/03/2025 9:15 AM EDT Office Visit [facility] MATERNAL MEDICINE 1700 [facility] [address] [place] [phone] Brandan Taylor MD Family history of congenital heart defect (Primary Dx) 05/03/2025 8:39 AM EDT - 05/03/2025 11:59 PM EDT Hospital Encounter [facility] US PER DIAG CTR [address] [place] [address] Brayden Garner MD Family history of congenital heart defect; Lupus erythematosus, unspecified form; Crohn's disease with complication, unspecified gastrointestinal tract location; Marginal placenta previa; Choroid plexus cyst of fetus affecting care of mother, antepartum, single or unspecified fetus Discharge Disposition: Home or Self Care 05/03/2025 Travel from Last 3 Months Immunizations Immunization Administration Dates Next Due ABRYSVO (RSV, 60+ or women 32-36 wks) 0 06/28/2025 Tdap 05/31/2025 Family History Medical History Relation [...] Pressure 108/70 07/20/2025 12:55 PM EDT Pulse 104 05/25/2025 6:59 PM EDT Temperature - - Respiratory Rate 20 05/25/2025 6:59 PM EDT Oxygen Saturation 97% 05/25/2025 6:59 PM EDT Inhaled Oxygen Concentration - - Weight 85.7 kg (189 lb) 07/20/2025 12:55 PM EDT Height 160 cm (5' 3 ) 01/01/2025 11:33 AM EDT Body Mass Index 33.48 01/01/2025 11:33 AM EDT Plan of Treatment Upcoming Encounters Date Type Department Care Team (Late st Contact Info) Description 07/28/2025 3:00 PM EDT Routine [facility] OBGYN [address] [place] [address] Karen Turk, DIGITAL CONTENT COORDINATOR 1700 [facility] [address] [place] [phone] 08/05/2025 10:20 AM EDT Routine [facility] O[facility]YN [address] [place] [phone] Holland Amos MD [address] [facility] [address] [place] [address] 08/16/2025 3:30 PM EST Pre-Admission Testing [facility] PREADMISSION T [address] [place] [address] 08/17/2025 7:30 AM EST Hospital Encounter [facility] LABOR DELIVERY [address] [place] [address] Holland Amos MD 1700 [facility] [address] [place] [address] 08/17/2025 7:30 AM EST - 08/17/2025 8:30 AM EST Surgery [facility] LABOR DELIVERY [address] [place] [address] Holland Amos MD [address] [address] SECTION REPEAT Scheduled Procedures Name Priority Associated Diagnoses Date/Ti me SECTION REPEAT 01/2025 7:30 AM EST Health Maintenance Due Date Last Done Comments Annual Gynecologic Pelvic an d Breast Exam 1999 PAP SMEAR 02/06/2020 ANNUAL PHYSICAL 12/23/2024 INFLUENZA VACCINE 05/14/2025 08/19/2023, 07/10/2017 TDAP/TD VACCINES (2 - Td or Tdap) 05/31/2035 05/31/2025 HPV VACCINES Completed 01/05/2020, 08/10/2019, 06/08/2019 Pneumococcal Vaccine 0-49 Aged Out 08/19/2023 No longer eligible based on patient's age to complete this topic HEPATITIS C SCREENING Completed 01/08/2025 RSV Vaccine - Adults Completed 06/28/2025 Procedures Procedure Name Priority Date/Time Associated Diagnosis Comments ALP+ALT+AST+CREAT+L D+TBILI+.. Routine 07/20/2025 1:43 PM EDT Swelling of lower extremity during in third trimester Hx of preeclampsia, prior , currently POCT URINALYSIS DIPSTICK, MANUAL Routine 07/20/2025 1:06 PM EDT Multigravida in third trimester 35 weeks gestation of Swelling of lower extremity during in third trimester POCT URINALYSIS DIPSTICK, MANUAL Routine 07/14/2025 12:22 PM EDT Multigravida in third trimester 34 weeks gestation of SCANNED - PROCEDURE 07/14/2025 POCT URINALYSIS DIPSTICK, MANUAL Routine 06/28/2025 2:35 PM EDT Multigravida in third trimester 32 weeks gestation of [facility] Routine 06/28/2025 1:27 PM EDT Family history of congenital heart defect POCT URINALYSIS DIPSTICK, MANUAL Routine 06/07/2025 3:36 [...] disease with complication, unspecified gastrointestinal tract location [facility] Routine 05/03/2025 9:34 AM EDT Family history of congenital heart defect Lupus erythematosus, unspecified form Crohn's disease with complication, unspecified gastrointestinal tract location Marginal placenta previa Choroid plexus cyst of fetus affecting care of mother, antepartum, single or unspecified fetus OBSTETRIC PANEL Routine 01/08/2025 12:45 PM EDT from Last 3 Months or Most Recently Relevant to Health Maintenance Results * (ABNORMAL) AlP+ALT+AST+Creat+LD+TBili+.. (07/20/2025 1:43 PM [...] - 07/21/2025 3:35 AM EDT Performed at: [address] [place] [id number] Floor Polisher: Yakov South MD, Phone: [phone] us Karen Turk APRN LAB BLOOD ORDERABLES Final Re sult Performing Organization Address City/[facility]/ZIP Co de Phone Number [facility] (AMBULATORY) [address] [place] [id number], [place] [phone] [facility] [address] [place] [address], [place] [phone] * POC Urinalysis Dipstick (07/20/2025 1:06 PM EDT) Only the most recent of6 resultswithin the time period is included. Glucose, UA Negative Negative mg/dL [facility] Protein, POC Negative Negative mg/dL [facility] Urine 07/20/2025 1:06 PM EDT us Karen Turk APRN POINT OF CARE TEST ORDERABLES Final Result [facility]
[address] [place] [address], [place] [phone] * Procedure Scanned (07/14/2025) us Karen Turk DIGITAL CONTENT COORDINATOR PROCEDURE/MINOR SURGICAL AFSANEHE TACOS Final Result * [facility] (06/28/2025 1:27 PM EDT) Only the most recent of2 resultswithin the time period is included. Anatomical Region Laterality Modality Ultrasound 06/28/2025 1:00 PM EDT Narrative 06/28/2025 1:44 PM EDT PAT NAME: BORIS WHARTON MED REC#: [id number] DA: [id number] PAT GEND: F PAT TYPE: O EXAM CHAN: [id number] REF PHYS HOLLAND AMOS Comparison Studies The findings of this study [...] EFW (oz) 10 oz EFW by: Hadlock (ITC-SI-XS-FL) Extended Cav. septi pel. tr 5.5 mm Customer Service Representative Teacher 7.6 mm CM 7.0 mm 45% Nicolaides [...] IVC: Appears Normal 3-vessel view: Appears normal 3-bnhbgc-qewxkxo view: Appears normal Cord insertion: Normal Stomach: [...] your discretion. Recommend echo. Coding ======= Description: 75779-28 Follow Up Ultrasound Description: 15006-55 BPP without NST Shaving Machine Operator: RT All Seo , [facility] Physician: Dominga Mccormick MD Electronically signed by: Dominga Mccormick MD at: 13:44 Procedure Note Dominga Mccormick MD - 06/28/2025 PAT NAME: BORIS WHARTON MED REC#: [id number] DA: [id number] PAT GEND: F PAT TYPE: O EXAM CHAN: [id number] REF PHYS [place] AMOS Comparison Studies The findings of this study are compared to the prior ultrasound studydated 05/03/25 Patient Status Outpatient Indication ======== Previous child with double aortic arch & possible deletion of vpghvuumby82. Hx PTD 35 - preeclampsia. Maternal Crohn's disease. Possible Lupusdiagnosis. Previous c/s x 1. Obesity BMI 33. Maternal Assessment Mmdehl483 cm Height (ft)5 ft Height (in)3 in Lsumvm51 kg Weight (lb)187 lb BMI33.13 kg/m Method [...] Standard BPD84.7 mm 34w 1d 92% Hadlock WKY568.1 mm 35w 0d 95% Mariam HC303.8 mm 33w 5d 61% Hadlock Cerebellum tr42.1 mm 33w 2d 67% Hill AC292.9 mm 33w 2d 83% Hadlock Femur61.7 mm 32w 0d 37% Hadlock Spjkwhm76.9 mm 33w 1d 78% Mariam HC / AC1.04 EFW2,105 g 32w 5d 72% Hadlock EFW (lb)4 lb EFW (oz)10 oz EFW by:Hadlock (WRN-SC-SP-FL) Extended Cav. septi pel. tr5.5 mm Vp7.6 mm CM7.0 mm 45% Nicolaides Head / Face / Neck Cephalic index0.80 51% Nicolaides Extremities / Bony Struc FL / BPD0.73 FL / HC0.20 FL / AC0.21 Other Structures SZX464 bpm General Evaluation Cardiac activity present. FHR [...] SVC:Appears Normal IVC:Appears Normal 3-vessel view:Appears normal 0-dueycs-svjluaj view:Appears normal Cord insertion:Normal Stomach:Appears normal Kidneys:Appears [...] at your discretion. Recommend echo. Coding ======= Description:39726-23 Follow Up Ultrasound Description:00760-93 BPP without NST Shaving Machine Operator: Keke Paula RT R , MS Physician: Dominga Mccormick MD Electronically signed by: Dominga Mccormick MD at: 13:44 Brandan Taylor MD IMG US ORDERABLES Final Result * Urine Culture - Urine, Urine, Clean Catch (06/07/2025 3:30 PM EDT) Only the most recent of2 resultswithin the time period is included. Pathologist [facility] Urine Culture Final report [facility] Result 1 Comment [facility] Comment: Mixed urogenital rodo Less than 10,000 colonies/mL Urine Urine specimen obtained by clean catch procedure / Unknown 06/07/2025 3:30 PM EDT 06/07/2025 Comment:UC Narrative [facility] (AMBULATORY) - 06/09/2025 6:09 AM EDT Performed at: - [address] [id number] Floor Polisher: Oscar Purdy PhD, Phone: [phone] Patient Fasting: N Luz Elena Craig APRN MICROBIOLOGY - GENERAL OR DERABLES Final Result [facility] (AMBULATORY) [address] [place] [address], [facility] [address] [place] [address], [place] [phone] * Procedure Scanned (06/07/2025) Luz Elena Craig APRN PROCEDURE/MINOR SURGICAL ORDERABLES Final Result * Gestational Screen 1 Hr ([facility]) (05/31/2025 11:29 AM EDT) Pathologist [facility] Gestational Diabetes Screen 111 65 - 139 mg/dL [facility] Blood 05/31/2025 11:2 9 AM EDT 05/31/2025 Narrative [facility] (AMBULAT[facility]) - 05/31/2025 8:09 PM EDT Performed at: [address] [place] [address] [place], [place] [id number] Floor Polisher: Yakov South MD, Phone: [phone] Patient Fasting: N Luz Elena Craig APRN LAB BLOOD ORDERABLES Marcella l Result Performing Organization Address [facility]/ZIP Co de Phone Number [facility] (AMBULATORY) [address] [place] [address], [facility] [address] [place] [address], * RPR Qualitative with Reflex to Quant (05/31/2025 11:29 AM EDT) Pathologist [facility] RPR Non Reactive Non Reactive [facility] Blood 05/31/2025 11:2 9 AM EDT 05/31/2025 Narrative [facility] (AMBUL[facility]) - 06/01/2025 10:10 AM EDT Performed at: [address] [place] [id number] Floor Polisher: Oscar Purdy PhD, Phone: [phone] Patient Fasting: N Luz Elena Craig APRN LAB BLOOD ORDERABLES Marcella l Result Performing Organization Address [facility]/ZIP Co de Phone Number [facility] [address] [place] [address], [facility] [address] [place] [address], * (ABNORMAL) CBC (No Diff) (05/31/2025 11:29 AM EDT) Pathologist [facility] WBC 8.32 3.40 - 10.80 10*3/mm3 [facility] [...] - 06/01/2025 7:09 AM EDT Performed at: [address] [place] [id number] Floor Polisher: Yakov South MD, Phone: [phone] Patient Fasting: N Luz Elena Craig APRN LAB BLOOD ORDERABLES Marcella l Result [facility] (AMBUL[facility]) [address] [place] [address], [facility] [address] [place] [address], * Antibody Screen (05/31/2025 11:29 AM EDT) [facility] Antibody Screen Negative Negative [facility] Blood 05/31/2025 11:2 9 AM EDT 05/31/2025 Narrative [facility] (AM[facility]) - 06/01/2025 8:11 AM EDT Performed at: [address] [place] [id number] Floor Polisher: Oscar Purdy PhD, Phone: [phone] Patient Fasting: N Luz Elena Craig APRN BLOOD BANK TEST ORDERABLE S Final Result [facility] ([facility]BUL[facility]) [address] [place] [address], [place] [phone] [facility] [address] [place] [address], [place] [phone] * POC Amnisure (05/25/2025 7:34 PM EDT) Amnisure Negative Negative [facility] Amniotic Fluid 05/25/2025 7: 34 PM EDT Rahul Cebalols MD POINT OF CARE TEST ORDERABLES Final Result [facility]
[address] [place] [address], * (ABNORMAL) Urinalysis, Microscopic Only - Urine, Clean Catch (05/25/2025 7:09 PM EDT) RBC, UA 3-5(A) None Seen, 0-2 /HPF 05/25/2025 8:08 PM EDT [facility] WBC, UA 11-20(A) None Seen, 0-2 /HPF 05/25/2025 8:08 PM EDT [facility] Bacteria, UA 1+(A) None Seen /HPF 05/25/2025 8:08 PM EDT [facility] Squamous Epithelial Cells, UA 3-6(A) None Seen, 0-2 /HPF 05/25/2025 8:08 PM EDT [facility] Hyaline Casts, UA 3-6 None Seen /LPF 05/25/2025 8:08 PM EDT [facility] Mucus, UA Moderate/2+(A) None Seen, Trace /HPF 05/25/2025 8:08 PM EDT [facility] Methodology Manual Light Microscopy 05/25/2025 8:08 PM EDT [facility] Urine Urine specimen obtained by clean catch procedure / Unknown Collection / Unknown 05/25/2025 7:09 PM EDT 05/25/2025 7:23 PM EDT us Rahlu Ceballos MD URINE ORDERABLES Final Result [facility]
[address] [place] [address], * (ABNORMAL) Urinalysis With Microscopic If Indicated (No Culture) - Urine, Clean Catch (05/25/2025 7:09 PM EDT) Color, UA Yellow Yellow, Straw 05/25/2025 7:48 PM EDT [facility] Appearance, UA Clear Clear 05/25/2025 7:48 PM EDT [facility] pH, UA 6.5 5.0 - 8.0 05/25/2025 7:48 PM EDT [facility] Specific [place], UA 1.021 1.005 - 1.030 05/25/2025 7:48 PM EDT [facility] Glucose, UA Negative Negative 05/25/2025 7:48 PM EDT [facility] Ketones, UA Negative Negative 05/25/2025 7:48 PM EDT [facility] Bilirubin, UA Negative Negative 05/25/2025 7:48 PM EDT [facility] Blood, UA Negative Negative 05/25/2025 7:48 PM EDT [facility] Protein, UA Trace(A) Negative 05/25/2025 7:48 PM EDT [facility] Leuk Esterase, UA Small (1+)(A) Negative 05/25/2025 7:48 PM EDT [facility] Nitrite, UA Negative Negative 05/25/2025 7:48 PM EDT [facility] Urobilinogen, UA 1.0 E.U./dL 0.2 - 1.0 E.U./dL 05/25/2025 7:48 PM EDT [facility] Urine Urine specimen obtained by clean catch procedure / Unknown Collection / Unknown 05/25/2025 7:09 PM EDT 05/25/2025 7:23 PM EDT us Rahul Ceballos MD URINE ORDERABLES Final Result [facility]
[address] [place] [address], * Obstetric Panel (01/08/2025 12:45 PM EDT) [...] LAB 01/08/2025 12:4 5 PM EDT 01/08/2025 Comment:[facility]- [id number] Narrative [facility] (AMBULAT[facility]) - 01/09/2025 8:36 AM EDT Performed at: - [facility] [address] [place] [id number] Floor Polisher: Oscar Purdy PhD, Phone: [phone] Jackeline Cote APRN LAB BLOOD ORDERABLES Final R esult [facility] (AMBULATORY) [address] [place] [address], [place] [phone] [facility] [address] [place] [address], from Last 3 Months or Most Recently Relevant to Health Maintenance Insurance [employer] Care Teams Roast Master Relationship Specialty Start Date End Date Anna Diane MD [address] [place], [place] [address] PCP - General Nurse Practitioner 12/21/24
--- OUTSIDE RECORDS SUMMARY | 2025-07-27 16:15 | XMS_ITS | Encounter Summary ---
[facility] Address [address] [place] [address] Care Team Providers Care Director Of Cardiology Service Line Name Role Phone Anna Diane MD Primary Care Provider Encounter Details Date Type Department Care Team (Late st Contact Info) Description 06/10/2025 Results Follow-Up [facility] O[facility]YN [address] [place] [address] Luz Elena Craig, AIR BRUSH ARTIST 1700 [facility] [address] [place], [place] [id number] Social History Tobacco Use Types Packs/Day Years [...] Info) Description 07/28/2025 3:00 PM EDT Routine [facility] OBGYN [address] [place] [address] Karen Turk, AIR BRUSH ARTIST [address] [address] 08/05/2025 10:20 AM EDT Routine [facility] OBGYN [address] [place] [address] Chrissie Fernández MD [address] [address] 08/16/2025 3:30 PM EST Pre-Admission Testing [facility] PREADMISSION T [address] [place] [address] 08/17/2025 7:30 AM EST Hospital Encounter [facility] LABOR DELIVERY [address] [place] [address] Chrissie Fernández MD [address] [address] 08/17/2025 7:30 AM EST - 08/17/2025 8:30 AM EST Surgery [facility] LABOR DELIVERY [address] [place] [address] Chrissie Fernández MD [address] [address] SECTION REPEAT Scheduled Procedures Name Priority Associated Diagnoses Date/Ti me SECTION REPEAT 01/2025 7:30 AM EST documented as of this encounter Visit Diagnoses Not on filedocumented in this encounter Care Teams Director Of Cardiology Service Line Relationship Specialty Start Date End Date Anna Diane MD [address] [place] [address] [place] [address] PCP - General Nurse Practitioner 12/21/24 documented as of this encounter
--- OUTSIDE RECORDS SUMMARY | 2025-07-27 16:15 | XMS_ITS | Encounter Summary ---
[facility] Address [address] [place] [address] Care Team Providers Care Final Inspector Shuttle Name Role Phone Anna Diane MD Primary Care Provider Encounter Details Date Type Department Care Team (Late st Contact Info) Description 07/21/2025 Results Follow-Up [facility] OBGYN [address] [address] Karen Turk APRN 1700 [facility] [address] [place] [address] Social History Tobacco Use Types Packs/Day Years [...] Info) Description 07/28/2025 3:00 PM EDT Routine [facility] OBGYN [address] [place] [address] Karen Turk, CHAITANYA [address] [address] 08/05/2025 10:20 AM EDT Routine [facility] OBGYN [address] [place] [address] Chrissie Fernández MD [address] [address] 08/16/2025 3:30 PM EST Pre-Admission Testing [facility] PREADMISSION T [address]40 [place] [address] 08/17/2025 7:30 AM EST Hospital Encounter [facility] LABOR DELIVERY [address] [place] [address] Chrissie Fernández MD [address] [address] 08/17/2025 7:30 AM EST - 08/17/2025 8:30 AM EST Surgery [facility] LABOR DELIVERY [address]00 [place] [address] Chrissie Fernández MD [address] [address] SECTION REPEAT Scheduled Procedures Name Priority Associated Diagnoses Date/Ti me SECTION REPEAT 01/2025 7:30 AM EST documented as of this encounter Visit Diagnoses Not on filedocumented in this encounter Care Teams Final Inspector Shuttle Relationship Specialty Start Date End Date Anna Diane MD [address] [place] [address] TUCKER Singh [address] PCP - General Nurse Practitioner 12/21/24 documented as of this encounter
--- OUTSIDE RECORDS SUMMARY | 2025-07-27 16:15 | XMS_ITS | Encounter Summary ---
Author Organization [facility] Address [address] [place] [address] Care Team Providers Care Production Gear Cutter Name Role Phone Anna Diane MD Primary [...] Info) Description 07/28/2025 3:00 PM EDT Routine [facility] OBGYN [address] [place] [address] Karen Turk, SOLE LEATHER CUTTING MACHINE OPERATOR 1700 [place] [address] 08/05/2025 10:20 AM EDT Routine [facility] OBGYN [address] [place] [address] Chrissie Fernández MD [address] [place] [phone] 08/16/2025 3:30 PM EST Pre-Admission Testing [facility] PREADMISSION T [address] [place] [address] 08/17/2025 7:30 AM EST Hospital Encounter [facility] LABOR DELIVERY [address] [place] [address] Chrissie Fernández MD 1700 [facility] [address] [place] [address] 08/17/2025 7:30 AM EST - 08/17/2025 8:30 AM EST Surgery [facility] LABOR DELIVERY 1700 [place] [address] Chrissie Fernández MD [address] [address] SECTION REPEAT Scheduled Procedures Name Priority Associated Diagnoses Date/Ti me SECTION REPEAT 01/2025 7:30 AM EST documented as of this encounter Visit Diagnoses Not on filedocumented in this encounter Care Teams Production Gear Cutter Relationship Specialty Start Date End Date Anna Diane MD [address] [place] [address] TUCKER Singh [address] PCP - General Nurse Practitioner 12/21/24 documented as of this encounter
--- OUTSIDE RECORDS SUMMARY | 2025-07-27 16:15 | XMS_ITS | Encounter Summary ---
Author Organization [facility] Address [address] [place] [address] Care Team Providers Care Metal Polisher And Buffer Apprentice Name Role Phone Anna Diane MD Primary Care Provider Encounter Details Date Type Department Care Team (Latest Contact Info) Description 06/28/2025 Travel Social History Tobacco Use Types Packs/Day [...] Info) Description 07/28/2025 3:00 PM EDT Routine [facility] OBGYN [address] [place] [address] Karen Turk, TOBACCO CURER 1700 [place] [address] 08/05/2025 10:20 AM EDT Routine [facility] OBGYN [address] [place] [address] Chrissie Fernández MD 1700 [place] [id number] [phone] 08/16/2025 3:30 PM EST Pre-Admission Testing [facility] PREADMISSION T [address] [place] [address] 08/17/2025 7:30 AM EST Hospital Encounter [facility] LABOR DELIVERY [address] [place] [address] Chrissie Fernández MD [address] [facility] [address] [place] [address] 08/17/2025 7:30 AM EST - 08/17/2025 8:30 AM EST Surgery [facility] LABOR DELIVERY [address]00 [place] [address] Chrissie Fernández MD [address] [address] SECTION REPEAT Scheduled Procedures Name Priority Associated Diagnoses Date/Ti me SECTION REPEAT 01/2025 7:30 AM EST documented as of this encounter Visit Diagnoses Not on filedocumented in this encounter Care Teams Metal Polisher And Buffer Apprentice Relationship Specialty Start Date End Date Anna Diane MD [address] [place] [address] TUCKER Singh [address] PCP - General Nurse Practitioner 12/21/24 documented as of this encounter
--- OUTSIDE RECORDS SUMMARY | 2025-07-27 16:15 | XMS_ITS | Encounter Summary ---
Author Organization [facility] Address [address] [place] [address] Care Team Providers Care Drum Filler Name Role Phone Anna Diane MD Primary Care Provider Encounter Details Date Type Department Care Team (Latest Contact Info) Description 07/20/2025 Travel Social History Tobacco Use Types Packs/Day [...] Info) Description 07/28/2025 3:00 PM EDT Routine [facility] OBGYN [address] [place] [address] Karen Turk, GEOTECHNICIAL PROPERTIES TECHNICIAN 1700 [place] [address] 08/05/2025 10:20 AM EDT Routine [facility] OBGYN [address] [place] [address] Chrissie Fernández MD [address]00 [place] [id number] [phone] 08/16/2025 3:30 PM EST Pre-Admission Testing [facility] PREADMISSION T [address] [place] [address] 08/17/2025 7:30 AM EST Hospital Encounter [facility] LABOR DELIVERY [address] [place] [address] Chrissie Fernández MD 1700 [facility] [address] [place] [address] 08/17/2025 7:30 AM EST - 08/17/2025 8:30 AM EST Surgery [facility] LABOR DELIVERY [address] [place] [address] Chrissie Fernández MD [address] [address] SECTION REPEAT Scheduled Procedures Name Priority Associated Diagnoses Date/Ti me SECTION REPEAT 01/2025 7:30 AM EST documented as of this encounter Visit Diagnoses Not on filedocumented in this encounter Care Teams Drum Filler Relationship Specialty Start Date End Date Anna Diane MD [address] [place] [address] TUCKER Singh [address] PCP - General Nurse Practitioner 12/21/24 documented as of this encounter
--- OUTSIDE RECORDS SUMMARY | 2025-07-27 16:16 | XMS_ITS | Encounter Summary ---
Author Organization Healthcare Address [address] [place] [address] Care Team Providers Care Ground Surveillance Systems Operator Name Role Phone Emiliano Lutz MD Primary Care Provider [phone] Encounter Details Date Type Department Care Team (Late st Contact Info) Description 07/16/2023 Lab Requisition [facility] [address] [place] [address] Frank Calvillo MD [address] [place] [address] [place] [address] Hemorrhage of anus and rectum [...] EDT) Case Report Sugical Pathology Consult Case: [id number] Authorizing Provider: Frank Calvillo MD Collected: 07/16/2023 1317 Ordering Location: [facility] Received: 07/16/2023 1318 Pathologist: Mandie Land MD Specimen: Rectal, [id number] 9:50 AM EDT [facility] Final Diagnosis SMALL INTESTINE, TERMINAL ILEUM, BIOPSY (OUTSIDE: [id number]; COLLECTION: 07/12/2023): - ULCERATION WITH SEVERE ACUTE [...] correlation is recommended. 9:50 AM EDT [facility] Clinical Information K62.5 - Hemorrhage of anus and rectum [ICD-10-CM] Chronic diarrhea and rectal bleeding. Terminal ileitis noted with scarring of the ic valve, this is worrisome for IBD, multiple biopsies were obtained; normal appearing colonic mucosa; hemorrhoids. 9:50 AM EDT [facility] Special and Immunohistochemical Stains Special Stain: A2-1 GMS Negative A2-2 Acid Fast Bacteria Negative All controls show appropriate reactivity. All immunohistochemi stry, in situ hybridization, and histochemical tests were developed by and are performed at the [facility], [address] [place] [address]. All tests reported here, except those addressing [...] on decalcified specimens. 3 9:50 AM EDT [facility] Gross Description A. [id number] Received along with a corresponding pathology report from [facility] are 2 slide(s) and 1 Block labeled outside case: [id number] collected on 07/12/2023. 3 9:50 AM EDT [facility] Note: A resident was involved in the service. I attest I examined the relevant preparations for the specimens and confirmed the diagnosis or interpretation. 3 9:50 AM EDT [facility] Tissue Specimen from rectum / Unknown 07/16/2023 1:17 PM EDT 07/16/2023 1:18 PM EDT us Frank Calvillo MD LAB PATHOLOGY ORDERABLES Marcella osei Result Performing Organization Address City/State/[facility] Co de Phone Number [facility] [address] [place] [address] documented in this encounter Visit Diagnoses Diagnosis Hemorrhage of anus and rectum Hemorrhage of rectum and anus documented in this encounter Care Teams Ground Surveillance Systems Operator Relationship Specialty Start Date End Date Emiliano Lutz MD [address] [place] [address] PCP - General 02/24/21 documented as of this encounter
--- OUTSIDE RECORDS SUMMARY | 2025-07-27 16:16 | XMS_ITS | Encounter Summary ---
[facility] Address [address] [place] [address] Care Team Providers Care Ecd Name Role Phone Anna Diane MD Primary Care Provider Encounter Details Date Type Department Care Team (Late st Contact Info) Description 01/28/2025 Results Follow-Up [facility] OBGYN [address] [address] Karen Turk APRN 1700 [facility] [address] [place] [address] Social History Tobacco Use Types Packs/Day Years [...] Info) Description 07/28/2025 3:00 PM EDT Routine [facility] OBGYN [address] [place] [address] Karen Turk, CHAITANYA [address] [address] 08/05/2025 10:20 AM EDT Routine [facility] OBGYN [address] [place] [address] Chrissie Fernández MD [address] [address] 08/16/2025 3:30 PM EST Pre-Admission Testing [facility] PREADMISSION T 1740 [place] [address] 08/17/2025 7:30 AM EST Hospital Encounter [facility] LABOR DELIVERY [address] [place] [address] Chrissie Fernández MD [address] [address] 08/17/2025 7:30 AM EST - 08/17/2025 8:30 AM EST Surgery [facility] LABOR DELIVERY [address] [place] [address] Chrissie Fernández MD [address] [address] SECTION REPEAT Scheduled Procedures Name Priority Associated Diagnoses Date/Ti me SECTION REPEAT 01/2025 7:30 AM EST documented as of this encounter Visit Diagnoses Not on filedocumented in this encounter Care Teams Ecd Relationship Specialty Start Date End Date Anna Diane MD [address] [place] [address] TUCKER Singh [address] PCP - General Nurse Practitioner 12/21/24 documented as of this encounter
--- OUTSIDE RECORDS SUMMARY | 2025-07-27 16:16 | XMS_ITS | Clinical Summary ---
Author Organization Healthcare Address [address] [place] [id number] Care Team Providers Care Retail Training Manager Name Role Phone Emiliano Lutz MD Primary Care Provider [phone] Family History Medical History Relation Name Comments [...] Plan of Treatment Not on file Insurance [facility] MEDICAID Care Teams Retail Training Manager Relationship Specialty Start Date End Date Emiliano Lutz MD [address] [place] [address] PCP - General 02/24/21
--- OUTSIDE RECORDS SUMMARY | 2025-07-27 16:16 | XMS_ITS | Encounter Summary ---
Author Organization [facility] Address [address] [place] [address] Care Team Providers Care Road Sign Installer Name Role Phone Anna Diane MD [...] [facility] OBGYN [address] [place] [address] Karen Turk, HAND STAPLER 1700 [place] [address] 08/05/2025 10:20 AM EDT Routine [facility] OBGYN [address] [place] [address] Chrissie Fernández MD 1700 [place] [phone] 08/16/2025 3:30 PM EST Pre-Admission Testing [facility] PREADMISSION T [address] [place] [address] 08/17/2025 7:30 AM EST Hospital Encounter [facility] LABOR DELIVERY [address] [place] [address] Chrissie Fernández MD 1700 [facility] [address] [place] [address] 08/17/2025 7:30 AM EST - 08/17/2025 8:30 AM EST Surgery [facility] LABOR DELIVERY [address] [place] [address] Chrissie Fernández MD [address] [address] SECTION REPEAT Scheduled Procedures Name Priority Associated Diagnoses Date/Ti me SECTION REPEAT 01/2025 7:30 AM EST documented as of this encounter Visit Diagnoses Not on filedocumented in this encounter Care Teams Road Sign Installer Relationship Specialty Start Date End Date Anna Diane MD [address] [place] [address] TUCKER Singh [address] PCP - General Nurse Practitioner 12/21/24 documented as of this encounter
--- OUTSIDE RECORDS SUMMARY | 2025-07-27 16:16 | XMS_ITS | Encounter Summary ---
Author Organization [facility] Address [address] [place] [address] Care Team Providers Care Fall Intern Name Role Phone Anna Diane MD Primary Care Provider [phone] Encounter Details Date Type Department Care Team (Late st Contact Info) Description 02/07/2025 Results Follow-Up [facility] OBGYN [address] [place] [address] Chrissie Fernández MD 1700 [facility] [address] [place] [address] Social History Tobacco Use Types Packs/Day Years [...] 3:00 PM EDT Routine [facility] OBGYN [address] [place] [address] Karen Turk, GREIGE GOODS MARKER 1700 [place] [address] 08/05/2025 10:20 AM EDT Routine [facility] OBGYN [address] [place] [address] Chrissie Fernández MD 1700 [place] [address] 08/16/2025 3:30 PM EST Pre-Admission Testing [facility] PREADMISSION T [address]40 [place] [address] 08/17/2025 7:30 AM EST Hospital Encounter [facility] LABOR DELIVERY 1700 [facility] [place] [address] Chrissie Fernández MD [address]00 [place] [id number] 08/17/2025 7:30 AM EST - 08/17/2025 8:30 AM EST Surgery [facility] LABOR DELIVERY 1700 [facility] [place] [address] Chrissie Fernández MD [address] [address] SECTION REPEAT Scheduled Procedures Name Priority Associated Diagnoses Date/Ti me SECTION REPEAT 01/2025 7:30 AM EST documented as of this encounter Visit Diagnoses Not on filedocumented in this encounter Care Teams Fall Intern Relationship Specialty Start Date End Date Anna Diane MD [address] [place] [address] [place] [address] PCP - General Nurse Practitioner 12/21/24 documented as of this encounter
--- OUTSIDE RECORDS SUMMARY | 2025-07-27 16:16 | XMS_ITS | Encounter Summary ---
[facility] Address [address] [place] [address] Care Team Providers Care Hand Painter Name Role Phone Anna Diane MD Primary Care Provider Encounter Details Date Type Department Care Team (Late st Contact Info) Description 01/09/2025 Results Follow-Up [facility] OBGYN 1700 [facility] [address] [place] [address] Jackeline Cote, FOOD COUNTER ATTENDANT 1700 [facility] [address] [place] [address] Social History Tobacco Use Types Packs/Day Years [...] [facility] OBGYN [address] [place] [address] Karen Turk, FOOD COUNTER ATTENDANT 1700 [facility] [address] [place] [address] 08/05/2025 10:20 AM EDT Routine [facility] OBGYN [address] [place] [address] Chrissie Fernández MD [address] [address] 08/16/2025 3:30 PM EST Pre-Admission Testing [facility] PREADMISSION T [address] [place] [address] 08/17/2025 7:30 AM EST Hospital Encounter [facility] LABOR DELIVERY [address] [place] [address] Chrissie Fernández MD [address] [address] 08/17/2025 7:30 AM EST - 08/17/2025 8:30 AM EST Surgery [facility] LABOR DELIVERY [address]00 [place] [address] Chrissie Fernández MD [address] [address] SECTION REPEAT Scheduled Procedures Name Priority Associated Diagnoses Date/Ti me SECTION REPEAT 01/2025 7:30 AM EST documented as of this encounter Visit Diagnoses Diagnosis Urinary tract infection in mother during first trimester of - Primary documented in this encounter Care Teams Hand Painter Relationship Specialty Start Date End Date Anna Diane MD [address] [place] [address] [place] [address] PCP - General Nurse Practitioner 12/21/24 documented as of this encounter
--- OUTSIDE RECORDS SUMMARY | 2025-07-27 16:16 | XMS_ITS | Encounter Summary ---
[facility] [address] [place] [address] Care Team Providers Care Jeeper Operator Name Role Phone Anna Diane MD Primary Care Provider [phone] Encounter Details Date Type Department Care Team (Late st Contact Info) Description 03/15/2025 Results Follow-Up [facility] OBGYN [address] [place] [address] Luz Elena Craig, ASSISTANT PLANT MANAGER 1700 [facility] [address] [place], [place] [id number] Social History Tobacco Use Types Packs/Day Years [...] Info) Description 07/28/2025 3:00 PM EDT Routine [facility] OBGYN [address] [place] [address] Karen Turk, ASSISTANT PLANT MANAGER [address] [address] 08/05/2025 10:20 AM EDT Routine [facility] OBGYN [address] [place] [address] Chrissie Fernández MD [address] [address] 08/16/2025 3:30 PM EST Pre-Admission Testing [facility] PREADMISSION T 1740 [place] [address] 08/17/2025 7:30 AM EST Hospital Encounter [facility] LABOR DELIVERY [address]00 [place] [address] Chrsisie Fernández MD [address] [address] 08/17/2025 7:30 AM EST - 08/17/2025 8:30 AM EST Surgery [facility] LABOR DELIVERY [address] [place] [address] Chrissie Fernández MD [address] [address] SECTION REPEAT Scheduled Procedures Name Priority Associated Diagnoses Date/Ti me SECTION REPEAT 01/2025 7:30 AM EST documented as of this encounter Visit Diagnoses Not on filedocumented in this encounter Care Teams Jeeper Operator Relationship Specialty Start Date End Date Anna Diane MD [address] [place] [address] TUCKER Singh [address] PCP - General Nurse Practitioner 12/21/24 documented as of this encounter
--- OUTSIDE RECORDS SUMMARY | 2025-07-27 16:16 | XMS_ITS | Encounter Summary ---
Author Organization [facility] Address [address] [place] [id number] Care Team Providers Care Auto Fleet Maintenance Manager Name Role Phone Anna Diane MD Primary Care Provider [phone] Encounter Details Date Type Department Care Team (Late st Contact Info) Description 01/04/2025 Results Follow-Up [facility] OBGYN 1700 [facility] [address] [place] [address] Jackeline Cote, RN GYN 1700 [facility] [address] [place] [address] Social History Tobacco Use Types Packs/Day Years [...] Info) Description 07/28/2025 3:00 PM EDT Routine [facility] OBGYN [address] [place] [address] Karen Turk, RN GYN 1700 [facility] [address] [place] [address] 08/05/2025 10:20 AM EDT Routine [facility] OBGYN [address] [place] [address] Chrissie Fernández MD [address] [place] [id number] 08/16/2025 3:30 PM EST Pre-Admission Testing [facility] PREADMISSION T 1740 [place] [address] 08/17/2025 7:30 AM EST Hospital Encounter [facility] LABOR DELIVERY 1700 [facility] [address] Chrissie Fernández MD 1700 [place] [address] 08/17/2025 7:30 AM EST - 08/17/2025 8:30 AM EST Surgery [facility] LABOR DELIVERY [address] [place] [address] Chrissie Fernández MD 1700 [place] [address] SECTION REPEAT Scheduled Procedures Name Priority Associated Diagnoses Date/Ti me SECTION REPEAT 01/2025 7:30 AM EST documented as of this encounter Visit Diagnoses Not on filedocumented in this encounter Care Teams Auto Fleet Maintenance Manager Relationship Specialty Start Date End Date Anna Diane MD [address] [place] [address] [place] [address] PCP - General Nurse Practitioner 12/21/24 documented as of this encounter
--- OUTSIDE RECORDS SUMMARY | 2025-07-27 16:16 | XMS_ITS | Encounter Summary ---
Author Organization [facility] Address [address] [place] [id number] Care Team Providers Care Compounding Scaler Name Role Phone Anna Diane MD Primary Care Provider Reason for Visit * Reason Onset Date Comments DR. CHRISSIE FERNÁNDEZ-MUCUS PLUG 06/07/2025 Encounter Details Date Type Department Care Team (Late st Contact Info) Description 06/07/2025 Telephone [facility] OBGYN [address] [address] Chrissie Fernández MD [address] [place] [phone] CHRISSIE FERNÁNDEZ-MUCUS PLUG Social History Tobacco [...] Ngo RN - 06/07/2025 11:59 AM EDT KRISTAL patient [id number] Patient called stating she lost [...] at time of call. Will discuss with SWITCHBOARD CLERK and call patient back. Per Keke, patient needs to be seen to r/o contractions and assess SOB. Patient does not have BP machine at home currently. She requests to be seen at [facility] office if possible. Appt made with Luz Elena Craig APRN at 245 PM. Patient VU * Telephone Encounter - Shae Garcia RegSched Rep - 06/07/2025 9:53 AM EDT Caller: Boris Deras Relationship: Self Best call back number: [phone] What is the best time to reach [...] Info) Description 07/28/2025 3:00 PM EDT Routine [facility] OBGYN [address] [place] [address] Karen Turk, SWITCHBOARD CLERK [address] [address] 08/05/2025 10:20 AM EDT Routine [facility] OBGYN [address] [place] [address] Chrissie Fernández MD [address] [place] [id number] 08/16/2025 3:30 PM EST Pre-Admission Testing [facility] PREADMISSION T 1740 [place] [address] 08/17/2025 7:30 AM EST Hospital Encounter [facility] LABOR DELIVERY 1700 [place] [address] Chrissie Fernández MD [address] [address] 08/17/2025 7:30 AM EST - 08/17/2025 8:30 AM EST Surgery [facility] LABOR DELIVERY [address] [place] [address] Chrissie Fernández MD [address] [address] SECTION REPEAT Scheduled Procedures Name Priority Associated Diagnoses Date/Ti me SECTION REPEAT 01/2025 7:30 AM EST documented as of this encounter Visit Diagnoses Not on filedocumented in this encounter Care Teams Compounding Scaler Relationship Specialty Start Date End Date Anna Diane MD [address] [place] [address] PCP - General Nurse Practitioner 12/21/24 documented as of this encounter
--- OUTSIDE RECORDS SUMMARY | 2025-07-27 16:16 | XMS_ITS | Encounter Summary ---
[facility] Address [address] [place] [address] Care Team Providers Care Associate Professor Of Library Science Name Role Phone Anna Diane MD Primary Care Provider Encounter Details Date Type Department Care Team (Late st Contact Info) Description 06/01/2025 Results Follow-Up [facility] [address] [place] [address] Luz Elena Craig, SOLID FIBER PASTER OPERATOR [address] [facility] [address] [place], [place] [id number] Social History Tobacco Use Types Packs/Day Years [...] EDT Routine [facility] [address] [place] [address] Karen Turk, SOLID FIBER PASTER OPERATOR [address] [address] 08/05/2025 10:20 AM EDT Routine [facility] [address] [place] [address] Chrissie Fernández MD [address] [address] 08/16/2025 3:30 PM EST Pre-Admission Testing [facility] PREADMISSION T [address] [place] [address] 08/17/2025 7:30 AM EST Hospital Encounter [facility] LABOR DELIVERY [address] [place] [address] Chrissie Fernández MD [address] [address] 08/17/2025 7:30 AM EST - 08/17/2025 8:30 AM EST Surgery [facility] DELIVERY [address] [place] [address] Chrissie Fernández MD [address] [address] SECTION REPEAT Scheduled Procedures Name Priority Associated Diagnoses Date/Ti me SECTION REPEAT 01/2025 7:30 AM EST documented as of this encounter Visit Diagnoses Not on filedocumented in this encounter Care Teams Associate Professor Of Library Science Relationship Specialty Start Date End Date Anna Diane MD [address] [place] [address] TUCKER Singh [id number] PCP - General Nurse Practitioner 12/21/24 documented as of this encounter
[2025-07-27 16:41] LABS: Microscopic, Urine URINE MICROSCOPIC (MICROSCOPIC)
[2025-07-27 16:48] VITALS: BP 124/75; PULSE 102; RESP 18; TEMP 37.3; O2SAT 99; BMI 33.1
[2025-07-27 16:49] LABS: Bilirubin,Urine Negative (Negative); Color,Urine YELLOW (Yellow); Glucose,Urine (UA) Negative (Negative); Ketones,Urine Negative (Negative); Leukocyte Esterase,Urine 1+ (Negative); PH,Urine 7.0 (5.0-8.5); Protein,Urine Negative (Negative); Specific Gravity, Urine 1.010 (1.005-1.030); Urobilinogen,Urine 0.2 EU/dl (0.2)
[2025-07-27 17:08] LABS: Amorphous Sediment,Urine 1+ /lpf; Bacteria,Urine 1+ /lpf
== END 2025-07-27 17:32 | disposition home or self-care (01) ==
LOC: OBOUT 16:13 → OB 16:13
PROVIDERS: Visit Provider Obstetrics & Gynecology
DX: O26.893 Other specified pregnancy related conditions, third trimester (principal); R10.12 Left upper quadrant pain; Z3A.37 37 weeks gestation of pregnancy
CPT/HCPCS: 59025; 81001; 87086; 99212; G0463